=== PATIENT | male | born 1965 | race Native Hawaiian/Other Pacific Islander ===

== ENCOUNTER 2022-09-22 14:37 | Outpatient (REF) | payer MEDICAID, SELFPAY ==
--- NOTE | ~2022-09-22 | CT_ITS ---
EXAMINATION: CT CHEST SCREENING CLINICAL INFORMATION: Current smoker. 90 pack year history. COMPARISON: None available. TECHNIQUE: Multidetector volumetric CT imaging of the chest is performed without contrast using low dose technique. Additional 2D coronal and sagittal reformatted images and axial 3D maximum intensity projection (MIP) images are generated on the CT workstation. This CT examination was performed using dose optimization techniques as appropriate, variously including the following: *Automated exposure control *Adjustment of mA and/or kV according to patient size (this includes techniques or standardized protocols for targeted exams where dose is matched to indication/reason for exam; i.e. extremities or head) *Use of iterative reconstruction technique DLP: 65 mGy-cm FINDINGS: LUNGS: 5 mm left upper peripheral or subpleural lobe nodule axial image 89 series 5. This may represent a subpleural lymph node. A 3 mm right upper lobe nodule axial image 160 series 5. A 3 mm left upper lobe nodule axial image 342 series 5. MEDIASTINUM: The mediastinum is normal. CORONARY ARTERY CALCIFICATION: Mild PLEURA: There is no pleural effusion. No pleural mass or thickening. AXILLA: No lymphadenopathy. UPPER ABDOMEN: Mild fatty infiltration of the liver. Diverticulosis of the colon. OSSEOUS STRUCTURES: Degenerative changes of the spine. CT/CT lung screening IMPRESSION: Small pulmonary nodules ASSESSMENT: Lung-RADS category 2: Benign RECOMMENDATION: Annual low-dose chest CT follow-up recommended
== END 2022-09-22 14:38 | disposition home or self-care (01) ==
LOC: HO.CT 14:37
PROVIDERS: PCP Internal Medicine; Visit Provider Physician Assistant Medical
DX: Z12.2 Encounter for screening for malignant neoplasm of respiratory organs (principal); F17.210 Nicotine dependence, cigarettes, uncomplicated
CPT/HCPCS: 71271; G0296

== ENCOUNTER 2022-11-06 10:00 | Outpatient (REF) | payer MEDICAID, SELFPAY ==
[2022-11-06 14:12] LABS: MANUAL DIFF FLAG NO
[2022-11-06 14:26] LABS: Basophils Percent Auto 0.6 % (0-2); Eosinophils Absolute Auto 0.2 X10*3/uL (0.0-0.4); Eosinophils Percent Auto 2.5 % (0-4); Hematocrit 45.5 % (42.0-52.0); Hemoglobin 14.8 g/dl (14.0-18.0); Imm Gran Abs Auto 0.02 X10*3/uL (0.00-0.03); Imm Gran Pct Auto 0.3 % (0.0-0.4); Lymphocytes Absolute Auto 2.7 X10*3/uL (1.2-4.9); Lymphocytes Percent Auto 38.9 % (20-40); Mean Corpuscular HGB Conc 32.5 g/dl (31.0-36.0); Mean Corpuscular Hemoglobin 31.2 pg (27.0-33.0); Monocytes Absolute Auto 0.6 X10*3/uL (0.1-1.2); Monocytes Percent Auto 8.4 % (2-11); Neutrophils Absolute Auto 3.4 x10*3/uL (2.0-8.3); Neutrophils Percent Auto 49.3 % (45-73); Platelet Count 247 X10*3/uL (160-400); Red Blood Count 4.74 X10*6/uL (4.60-5.80); Red Cell Distribution Width 13.8 % (11.0-16.0); White Blood Count 6.8 X10*3/uL (4.8-10.8)
[2022-11-06 14:54] LABS: Anion Gap 14 (12-20); Blood Urea Nitrogen 15 mg/dL (9-16); Carbon Dioxide 27 mmol/L (22-29); Chloride 105 mmol/L (96-108); Cholesterol 182 mg/dL; Estimated Glomerular Filt Rate > 60; Glucose Fasting 76 mg/dL (60-99); HDL Cholesterol 38 mg/dL; LDL Cholesterol Calculated 96 mg/dl; Potassium 4.9 mmol/L (3.3-5.1); Sodium 141 mmol/L (135-145); Triglycerides 241 mg/dL
== END 2022-11-06 10:01 | disposition home or self-care (01) ==
LOC: HO.CHCLDS 10:00
PROVIDERS: Visit Provider Internal Medicine
DX: I10 Essential (primary) hypertension (principal); E78.00 Pure hypercholesterolemia, unspecified; M1A.00X0 Idiopathic chronic gout, unspecified site, without tophus (tophi)
CPT/HCPCS: 36415; 80048; 80061; 85025

== ENCOUNTER → 2023-08-06 09:30 | Outpatient (BNVA) | payer MEDICAID, SELFPAY | PROVIDERS: PCP Internal Medicine; Visit Provider Internal Medicine ==

== ENCOUNTER 2023-11-28 09:01 | Outpatient (AMB) | payer MEDICAID, SELFPAY ==
--- NOTE | 2023-11-28 09:12 | A.OFFVIS_ITS ---
Vital Signs 11/28/23 09:13 Height 5 ft 4 in Weight 203 lb BMI 34.8 BP 113/60 Blood Pressure Location Lt brachial Position Sitting Pulse 60 Intake Visit Reasons: Hx Tubular Polyps Intake Note: Patient new consult for Hx of Tubular polyps Patient denies any GI issues. Precision Thread Grinder Operator Required: Yes Precision Thread Grinder Operator Name: Marisela [facility] [place] by: Self / Same As Patient Allergies No Known Allergies [No Known Allergies*] Allergy (Verified 11/28/23 09:08) HPI Comments Details: 58 y.o M with PMH of tobacco use, colon polyps, gout, who is here to discuss surveillance colo. Prev colo in 2016 with rectal adenoma. Pt with no acute GI issues to include abd pain, nausea, vomiting blood in stool. No fam hx of colorectal ca in FDRs. PFSH Medical History (Updated 09/22/22 @ 14:34 by Chanda Dawn PA-C) Bilateral renal cysts Nicotine dependence, cigarettes, uncomplicated Tubular adenoma of colon (~2015) Surgical History (Updated 11/28/23 @ 09:13 by Rosalind Gilmore) History of kidney surgery History of esophagogastroduodenoscopy (EGD) History of colonoscopy Social History Patient Tobacco Use Status: Current everyday Tobacco user Tobacco use type: Cigarette Cigarettes Per Day: 3 Years Smoked: (onset 9yo, 1ppd x 48yrs, now 2-3cig/day - 40pyh) Review of Systems Const All systems reviewed & are unremarkable except as noted in HPI and below Physical Exam Vital Signs: Last Vital Signs Pulse 60 11/28/23 09:13 BP 113/60 11/28/23 09:13 BMI result Body Mass Index 34.8 Gen appear: NAD, well nourished HEENT: no icterus, no cervical lymphadenopathy Chest: clear to auscultation CVS: Regular S1/S2 Abd: soft, nontender, nondistended Ext: no peripheral edema Neuro: A/Ox3, noted to move all extremities spontaneously Assessment & Plan Assessment & Plan (1) Tubular adenoma of colon: Onset Date: ~2015 Comment: (TA on 2016 scope) Code(s): D12.6 - Benign neoplasm of colon, unspecified Category: Medical (2) Nicotine dependence, cigarettes, uncomplicated: Comment: (onset 9yo, 1ppd x 48yrs, now 2-3cig/day - 40pyh) Code(s): F17.210 - Nicotine dependence, cigarettes, uncomplicated Category: Medical Plan Patient overdue for surveillance colonoscopy. Prep instructions reviewed and patient aware of the need to a ride back home. He was also counseled on smoking cessation, or at least to not smoke tobacco or marijuana for 7 days prior to the procedure to mitigate demetris-procedure respirato ry complications. CBC and CMP ordered for updated labs Follow-up after colonoscopy Orders: Orders Complete Blood Count no Diff Today F17.210 - Nicotine dependence, cigarettes, uncomplicated Comprehensive Met. Panel Today F17.210 - Nicotine dependence, cigarettes, uncomplicated Medications: New peg 3350-electrolytes [id number] -5.86 gram (Golytely) as per split prep instructions, until fecal effluent is clear 240 mL PO Q10M 4,000 mL 0RF colonoscopy Coding Level of Care Code New Pt Level 3 (38866) Diagnoses Tubular adenoma of colon D12.6 Nicotine dependence, cigarettes, uncomplicated F17.210
[2023-11-28 09:13] VITALS: BP 113/60; PULSE 60; BMI 34.8
== END 2023-11-28 09:37 | disposition home or self-care (01) ==
PROVIDERS: PCP Internal Medicine; Visit Provider Internal Medicine
DX: D12.6 Benign neoplasm of colon, unspecified (principal); F17.210 Nicotine dependence, cigarettes, uncomplicated
CPT/HCPCS: 99203

== ENCOUNTER 2023-11-28 09:01 | Outpatient (REF) | payer MEDICAID, SELFPAY ==
[2023-11-28 10:49] LABS: Hematocrit 44.4 % (42.0-52.0); Hemoglobin 14.6 g/dl (14.0-18.0); Mean Corpuscular HGB Conc 32.9 g/dl (31.0-36.0); Mean Corpuscular Hemoglobin 30.4 pg (27.0-33.0); Mean Corpuscular Volume 92.3 fL (80.0-98.0); Mean Platelet Volume 10.4 fL (9.4-12.4); Platelet Count 264 X10*3/uL (160-400); Red Blood Count 4.81 X10*6/uL (4.60-5.80); Red Cell Distribution Width 13.7 % (11.0-16.0); White Blood Count 7.6 X10*3/uL (4.8-10.8)
[2023-11-28 11:32] LABS: Alanine Aminotransferase 20 U/L (0-40); Albumin Level 4.4 g/dL (3.5-5.0); Alkaline Phosphatase 84 U/L (39-117); Anion Gap 10 (12-20); Aspartate Amino Transferase 18 U/L (5-37); Blood Urea Nitrogen 14 mg/dL (9-16); Carbon Dioxide 27 mmol/L (22-29); Chloride 109 mmol/L (96-108); Estimated Glomerular Filt Rate > 60; Glucose Random 102 mg/dL (60-115); Potassium 4.5 mmol/L (3.3-5.1); Sodium 141 mmol/L (135-145); Total Protein 7.6 g/dL (6.5-8.0)
== END 2023-11-28 09:02 | disposition home or self-care (01) ==
LOC: HO.LAB 09:01
PROVIDERS: PCP Internal Medicine; Visit Provider Internal Medicine
DX: D12.6 Benign neoplasm of colon, unspecified (principal); F17.210 Nicotine dependence, cigarettes, uncomplicated
CPT/HCPCS: 36415; 80053; 85027; 99202

== ENCOUNTER 2023-12-26 10:42 | Outpatient (REF) | payer MEDICAID, SELFPAY ==
[2023-12-26 14:28] LABS: Cholesterol 115 mg/dL (<200); HDL Cholesterol 39 mg/dL (>40); LDL Cholesterol Calculated 45 mg/dL (<100); Triglycerides 156 mg/dL (<150)
[2023-12-26 14:38] LABS: TSH reflex Free T4 1.14 uIU/mL (0.32-4.0)
[2023-12-27 05:10] LABS: ~HepC Num1 0.12 S/CO (0.00-0.79); ~Hepatitis C Antibody Nonreactive (Nonreactive)
== END 2023-12-26 10:43 | disposition home or self-care (01) ==
LOC: HO.CHCLDS 10:42
PROVIDERS: Visit Provider Internal Medicine
DX: E78.00 Pure hypercholesterolemia, unspecified (principal); I10 Essential (primary) hypertension; K21.9 Gastro-esophageal reflux disease without esophagitis
CPT/HCPCS: 36415; 80061; 84443; 86803

== ENCOUNTER 2024-03-04 15:15 | Outpatient (REF) | payer MEDICAID, SELFPAY | END 2024-03-04 15:16 | disposition home or self-care (01) | LOC: HO.CT 15:15 | PROVIDERS: PCP Internal Medicine; Visit Provider Physician Assistant Medical | DX: Z12.2 Encounter for screening for malignant neoplasm of respiratory organs (principal); F17.210 Nicotine dependence, cigarettes, uncomplicated | CPT/HCPCS: 71271 ==

== ENCOUNTER → 2024-03-04 15:17 | Outpatient (BNV) | payer MEDICAID, SELFPAY | PROVIDERS: PCP Internal Medicine; Visit Provider Radiology Diagnostic Radiology | DX: R91.1 Solitary pulmonary nodule (principal) | CPT/HCPCS: 71271 ==

== ENCOUNTER 2024-12-09 10:31 | Outpatient (REF) | payer MEDICAID, SELFPAY ==
--- OUTSIDE RECORDS SUMMARY | 2024-12-09 10:15 | XMS_ITS | Encounter Summary ---
Author Organization [employer] Address [address] [place] [address] Care Team Providers Care Ex Assistant/Program Director Name Role Phone Norman Ordonez MD Primary Care Provider [phone] Reason for Referral * Consultation (Routine) - Pending Review Specialty Diagnoses / Procedures Referred By Yajaira tovar Referred To Contact Gastroenterology Diagnoses Screening for colon cancer Norman Ordonez MD [address] [place] [address] Phone: tel: fax: Referral ID Status Reason Start Date Expiration Date Visits Requested Visits Authorized [id number] Pending Review Specialty Services Required 12/09/2024 12/09/2025 1 1 Encounter Details Date Type Department Care Team ([facility] st Contact Info) Description 12/09/2024 10:15 AM EDT Office Visit [facility] [address] [place] [address] Norman Ordonez MD [address] [place] [address] Primary hypertension (Primary Dx); Steatosis of liver; Cobalamin deficiency; Screening for colon cancer; Dietary counseling; Exercise counseling; Class 2 severe obesity due to excess calories with serious comorbidity and body mass index (BMI) of 36.0 to 36.9 in adult (CMS/HCC); Encounter for immunization Social History Tobacco Use Types Packs/Day Years Used Date Smoking Tobacco: Some Days Cigarettes 0.2 25 Passive Smoke Exposure: Current Smokeless Tobacco: Never Comments:Has not smoke in a week. Alcohol Use Standard Drinks/Week Comments Yes 6 (1 standard drink = 0.6 oz pur e alcohol) Alcohol Answer Date Recorded How often do you have a drink containing alcohol ? 1 12/09/2024 How many drinks containing a lcohol do you have on a typical day when you are drinking? 0 12/09/2024 How often do you have six or more drinks on one occasion? 0 12/09/2024 Depression Answer Date Recorded Patient Health Questionnaire-9 Score 8 12/09/2024 Patient Health Questionnaire-9 Score 8 12/09/2024 Last PHQ-9: Questionnaire Data Not on file 0 12/09/2024 Housing Stability Answer Date Recorded What is your housing situation today? I have jacqueline boss 12/09/[address] you li ve. Do you have problems with any of the following? None of the above 12/09/2024 Food Insecurity Answer Date Recorded Within the past 12 months, y ou worried that your food would run out before you got money to buy more: Never True 12/09/2024 Within the past 12 months,th e food you bought just didn't last and you didn't have enough money to get more: Never True Transportation Answer Date Recorded In the past 12 months, has l ack of transportation kept you from medical appts, meetings, work or from getting things needed for daily living? No 12/09/2024 Utilities Answer Date Recorded In the past 12 months, has t he electric, gas, oil or water company threatened to shut off services in your home? No 12/09/2024 Depression Answer Date Recorded Patient Health Questionnaire-2 Score 4 12/09/2024 Internet Access Answer Date Recorded Internet Access Q1 Yes 12/09/2024 Internet Access Q2 Not on file 12/09/2024 Sex and Gender Information Value Date Recorded Sex Assigned at Male 02/13/2022 10:28 AM EDT Legal Sex Male 10:28 AM EDT Gender Identity Male 02/13/2022 10:28 AM EDT Sexual Orientation Straight 02/13/2022 10 :28 AM EDT documented as of this encounter Last Filed Vital Signs Vital Sign Reading Time Taken Comments Blood Pressure 143/81 12/09/2024 9:51 AM EDT Pulse 50 12/09/2024 9:51 AM EDT Temperature 36.5 C (97.7 F) 12/09/2024 9:51 AM EDT Respiratory Rate 20 12/09/2024 9:51 AM EDT Oxygen Saturation 97% 12/09/2024 9:51 AM EDT Inhaled Oxygen Concentration - - Weight 95.3 kg (210 lb) 12/09/2024 9:51 AM EDT Height 162.6 cm (5' 4 ) 12/09/2024 9:51 AM EDT Body Mass Index 36.05 12/09/2024 9:51 AM EDT documented in this encounter Functional Status * Over the past 2 weeks, how often have you been bothered by any of the following problems? Question Answer Date of Assessment Author Patient Health Questionnaire-2 Score 4 11/15 10:14 AM DALILAT Evelyn Garibay MA * Little interest or pleasure in doing things Answer Date of Assessment Author Nearly every day 12/09/2024 10:14 AM DALILAT Evelyn Garibay MA * Feeling down, depressed, or hopeless Answer Date of Assessment Author Several days 12/09/2024 10:14 AM EDT Eleni Garibay MA * Trouble falling or staying asleep, or sleeping too much Answer Date of Assessment Author Several days 12/09/2024 10:14 AM Eleni Doshi MA * Feeling tired or having little energy Answer Date of Assessment Author Several days 12/09/2024 10:14 AM Eleni Doshi MA * Poor appetite or overeating Answer Date of Assessment Author More than half the days 12/09/2024 10:14 AM DALILAT Evelyn Garibay MA * Feeling bad about yourself - or that you are a failure or have let yourself or your family down Answer Date of Assessment Author Not at all 12/09/2024 10:14 AM Eleni Doshi MA * Trouble concentrating on things, such as reading the newspaper or watching television Answer Date of Assessment Author Not at all 12/09/2024 10:14 AM Eleni Doshi MA * Moving or speaking so slowly that other people could have noticed? Or the opposite - being so fidgety or restless that you have been moving around a lot more than usual. Answer Date of Assessment Author Not at all 12/09/2024 10:14 AM EDT Eleni Garibay MA * Thoughts that you would be better off or hurting yourself in some way Answer Date of Assessment Author Not at all 12/09/2024 10:14 AM DALILAT Eleni Garibay MA * Patient Health Questionnaire-9 Score Answer Date of Assessment Author 8 12/09/2024 10:14 AM EDT Eleni Garibay MA * How difficult have these problems made it for you to do your work, take care of things at home, or get along with other people? Answer Date of Assessment Author Not difficult at all 12/09/2024 10:14 AM EDT Evelyn Oleary MA documented as of this encounter Progress Notes * Norman Ordonez MD - 12/09/2024 10:15 AM EDT SUBJECTIVE Efe Garcia is a 59 y.o. male who presents for No chief complaint on file.. HPI MR Efe Garcia is here for his extended office visit. 1) h/o HTN. Compliant to his medication that he takes in the evening. Denies Headache/blurry vision. 2)h/o liver steatosis. Pt is asymptomatic. He needs a repeat Liver panel 3) Missed his last appointment for his colonoscopy. He needs to be rescheduled. Denies any acute interval event since his last visit. Problem List[1] Allergies[2] Medications Ordered Prior to Encounter[3] Review of Systems Constitutional: Negative for activity change, appetite change, chills and diaphoresis. HENT: Negative for dental problem, drooling and ear discharge. Eyes: Negative for pain and itching. Respiratory: Negative for cough, choking and chest tightness. Cardiovascular: Negative for palpitations and leg swelling. Gastrointestinal: Negative for abdominal pain, anal bleeding and blood in stool. Endocrine: Negative for cold intolerance and heat intolerance. Genitourinary: Negative for flank pain, frequency and genital sores. Musculoskeletal: Negative for back pain. Neurological: Negative for light-headedness, numbness and headaches. Psychiatric/Behavioral: Negative for agitation, confusion and decreased concentration. OBJECTIVE Vitals: 12/09/24 0951 BP: (!) 143/81 Pulse: 50 Resp: 20 Temp: 97.7 ??F (36.5 ??C) TempSrc: Oral SpO2: 97% Weight: 210 lb (95.3 kg) Height: 5' 4 (1.626 m) Physical Exam Constitutional: General: He is not in acute distress. Appearance: Normal appearance. He is obese. He is not ill-appearing, toxic- appearing or diaphoretic. Cardiovascular: Rate and Rhythm: Normal rate. Pulmonary: Effort: Pulmonary effort is normal. Abdominal: Palpations: Abdomen is soft. Musculoskeletal: General: Normal range of motion. Skin: General: Skin is warm. Neurological: General: No focal deficit present. Mental Status: He is alert. Psychiatric: Mood and Affect: Mood normal. Assessment/Plan Assessment/Plan Diagnoses and all orders for this visit: Primary hypertension Comments: Pt claims compliance to his medication BP is at goal at home DASH diet. Advised to bring his records from home Orders: - CBC auto differential; Future - Comprehensive Metabolic Panel; Future - Lipid Panel, Standard; Future - TSH with Reflex to Free T4; Future Steatosis of liver Comments: Pt is avoid hepatotoxic medication. Needs to start loosing weight Cobalamin deficiency Comments: continue w/ vit B12 supplementation. Orders: - Vitamin B12/Folate, Serum Panel; Future Screening for colon cancer - Referral to Gastroenterology; Future Dietary counseling Exercise counseling Class 2 severe obesity due to excess calories with serious comorbidity and body mass index (BMI) of36.0 to 36.9 in adult (CMS/HCC) Dietary Recommendations: Fruits, vegetables, whole grains, protein foods, and fat-free or low-fat dairy products are healthychoices. Eat different types of protein foods in your diet. This can include seafood, lean meats, poultry, beans, peas, lentils, nuts, seeds, soy products, and eggs. Limit foods and beverages higher in added sugars, saturated fat, and sodium. Exercise Recommendations: At least 150 minutes of moderate-intensity physical activity per week, or an equivalent combinationof moderate- and vigorous-intensity activity Encounter for immunization - HEPATITIS B VACCINE ADULT 20 yrs + [1] Patient Active Problem List Diagnosis Chronic gouty arthritis Cobalamin deficiency H/O partial adrenalectomy (CMS/HCC) Hypertensive disorder Light cigarette smoker (1-9 cigs/day) Obesity with body mass index 30 or greater Steatosis of liver Dental calculus Periodontal disease [2] Allergies Allergen Reactions Lisinopril [3] Current Outpatient Medications on File Prior to Visit Medication Sig Dispense Refill Acetaminophen Extra Strength 500 MG tablet TAKE ONE TABLET EVERY 6 HOURS NEEDED FOR PAIN 20 tablet 0 allopurinol (Zyloprim) 300 MG tablet TAKE ONE TABLET DAILY 90 tablet 3 aspirin 81 MG EC tablet Take 1 tablet (81 mg) by mouth Once per day. daily 30 tablet 11 atenolol (Tenormin) 50 MG tablet TAKE ONE TABLET ONCE DAILY 90 tablet 1 atorvastatin (Lipitor) 40 MG tablet Take 1 tablet (40 mg) by mouth in the morning. 30 tablet 11 cyanocobalamin (Vitamin B-12) 1000 MCG/ML injection INJECT ONE ML INTRAMUSCULARLY EVERY MONTH 1 mL 11 cyanocobalamin (Vitamin B-12) 1000 MCG/ML injection INJECT ONE ML INTRAMUSCULARLY EVERY MONTH 1 mL 11 fenofibrate micronized (Lofibra) 134 MG capsule Take 1 capsule (134 mg) by mouth with breakfast. Daily with food 30 capsule 11 hydroCHLOROthiazide (Microzide) 12.5 MG capsule TAKE ONE CAPSULE BY MOUTH EVERY DAY 90 capsule 1 hydrocortisone 2.5 % cream apply by topical route every day to the affected area(s) (Patient not taking: Reported on 06/12/2024) ibuprofen 600 MG tablet Take 1 tablet (600 mg) by mouth every 6 (six) hours if needed for mild painfor up to 20 doses. 20 tablet 0 indomethacin (Indocin) 50 MG capsule TAKE ONE CAPSULE THREE TIMES DAILY WITH FOOD 15 capsule 2 nicotine (Nicoderm, Step 3) 7 MG/24HR patch Place 1 patch on the skin. (Patient not taking: Reported on 06/12/2024) omeprazole (PriLOSEC) [address] capsule TAKE ONE CAPSULE BY MOUTH EVERY DAY BEFORE A MEAL 90 capsule1 Omeprazole 20 MG tablet delayed-release Take 20 mg by mouth Once per day. 30 tablet 11 No current facility-administered medications on file prior to visit. documented in this encounter Miscellaneous Notes * Patient Education Note - Norman Ordonez MD - 12/09/2024 2:04 PM EDT Images from the original note were not included. Educaci?n del paciente Tabla de contenidos C?mo tomarse la presi?n arterial (How to Take Your Blood Pressure) Obesidad en los adultos (Obesity, Adult) Para sandrita videos y toda bennett educaci?n en l?michael, visite [email or web address] o escanee keegan c?digo QR con bennett tel?fono inteligente. El acceso a keegan contenido expirar?? en un a?o. C?mo tomarse la presi?n arterial How to Take Your Blood Pressure La presi?n arterial es la medida de la fuerza de la ankita al presionar contra las gonsalez de las arterias. Las arterias son los vasos sangu?neos que transportan la ankita desde el coraz?n hacia todas las partes del cuerpo. Usted puede terry bennett presi?n arterial en casa con un aparato. Es posible que tenga que terry bennett presi?n arterial en casa: Para sandrita si tiene presi?n arterial elevada (hipertensi?n). Para controlar bennett presi?n arterial a lo ritesh del tiempo. Para asegurarse de que el medicamento para la presi?n arterial est?? surtiendo efecto. Materiales necesarios: Aparato de medici?n de la presi?n arterial o tensi?metro. Cinthya silla para sentarse. Debe ser cinthya silla en la que pueda sentarse erguido con la espalda apoyada. No se siente en un sill?n blando o sof?. Walker o escritorio. Cuaderno jody?o. L?piz o sami?grafo. C?mo prepararse Evite realizar lo siguiente darío los 30 minutos anteriores a controlar bennett presi?n arterial: Consumir bebidas con cafe?na, kirti caf?? o t?. Consumir alcohol. [place]. Fumar. Realizar actividad f?asuncion. Pérez lo siguiente ez minutos antes de controlarse la presi?n arterial: Vaya al ba?o y pérez pis (orine). Si?ntese en cinthya silla. Est?? tranquilo. No hable. C?mo tomarse la presi?n arterial Siga las instrucciones que vienen con el aparato. Si tiene un tensi?metro digital, las instrucciones podr?an ser las siguientes: 1. Si?ntese con la espalda recta. Coloque los pies en el piso. No cruce los tobillos ni las piernas. Apoye el brazo thea al nivel del coraz?n. Puede apoyarlo en cinthya walker, escritorio o silla. Arrem?nguese. Envuelva la parte superior de bennett brazo thea con el brazalete para la presi?n arterial. El brazalete debe estar a 1 pulgada (2.5?cm) sobre bennett codo. Es mejor envolver el brazalete alrededor de la piel desnuda. Ajuste el brazalete ce?idamente alrededor del brazo, eloisa no demasiado apretado. Debe poder meter ?nicamente un dedo entre el brazalete y el brazo. Coloque el cord?n de modo que quede apoyado en el pliegue del codo. Presione el bot?n de encendido. Qu?dese sentado tranquilamente mientras el brazalete se infla y se desinfla. Escriba los n?meros que se muestran en la pantalla. Espere 2?o 3 minutos y repita los pasos 1?al?10. ?Qu?? significan los n?meros? Dos n?meros conforman la presi?n arterial. El primer n?aashish es la presi?n sist?lica. El olivia n?aashish es la presi?n diast?lica. Un ejemplo de lectura de presi?n arterial ser?a 120 sobre 80 (o 120/80). Si es adulto y no tiene ninguna afecci?n, use esta gu?a para saber si bennett presi?n arterial es normal: Normal Primer n?aashish: debajo de 120. Olivia n?aashish: debajo de 80. [place] Primer n?aashish: 120?129. [place] n?aashish: debajo de 80. [place] 1 de hipertensi?n Primer n?aashish: 130?139. [place] n?aashish: 80?89. [place] 2 de hipertensi?n Primer n?aashish: 140 o m?s. [place] n?aashish: 90 o m?s. Bennett presi?n arterial se encuentra por encima del nivel normal incluso si solo el truong o solo el olivia n?aashish est?? por encima de lo normal. Siga estas indicaciones en bennett casa: Medicamentos Use los medicamentos de venta savanna y los recetados solamente kirti se lo haya indicado el m?dico. D?gale al m?dico si los medicamentos que fermin le causan efectos secundarios. Indicaciones generales Controle bennett presi?n arterial con la frecuencia que le indique bennett m?dico. Contr?lese la presi?n arterial a la misma hora todos los d?as. Lleve el tensi?metro a bennett pr?xima froy con el m?dico. Bennett m?dico: ? Se asegurar?? de que lo est?? usando correctamente. ? Se asegurar?? de que funcione mansoor. Entienda cu?les deben ser darrell n?meros de presi?n arterial. Concurra a todas las visitas de seguimiento. Consejos generales Necesitar?? un aparato de medici?n de la presi?n arterial o tensi?metro. Bennett m?dico puede sugerirle un tensi?metro. Puede comprar jarrett en cinthya farmacia o en l?michael. Al escoger jarrett: Escoja jarrett que tenga un brazalete. Escoja jarrett que se envuelva en la parte superior de bennett brazo. Debe poder meter ?nicamente un dedo entre el brazalete y el brazo. No escoja jarrett que mida bennett presi?n arterial en la mu?eca o el dedo. D?nde obtener m?s informaci?n [place] [employer] (Asociaci?n [place] del [place]?n): www.heart.org Comun?quese con un m?dico si: Bennett presi?n arterial sigue everette. Bennett presi?n arterial disminuye repentinamente. Solicite ayuda de inmediato si: Bennett primer n?aashish de presi?n arterial es m?s alto que 180. Bennett olivia n?aashish de presi?n arterial es m?s alto que 120. Estos s?ntomas pueden indicar cinthya emergencia. No espere a sandrita si los s?ntomas desaparecen. Soliciteayuda de inmediato. Llame al 911. Resumen Contr?lese la presi?n arterial a la misma hora todos los d?as. Evite la cafe?na, el alcohol, fumar y hacer actividad f?asuncion darío los 30 minutos anteriores a controlarse la presi?n arterial. Se asegurar?? de que entienda cu?les deben ser darrell n?meros de presi?n arterial. Esta informaci?n no tiene kirti fin reemplazar el consejo del m?dico. Aseg?rese de hacerle al m?dicocualquier pregunta que tenga. Document Released: 2011-07-18 Document Updated: 2022-01-09 Document Reviewed: 2022-01-09 Elsevier Patient Education ? 2024 [employer] Obesidad en los adultos Obesity, Adult La obesidad es un exceso de grasa corporal. Ser ericka significa que bennett peso es m?s alto de lo que es saludable para usted. El IMC (?ndice de masa muscular) es un n?aashish que indica la cantidad de grasa corporal que tiene cinthya persona. Si usted tiene un ?ndice de masa corporal (IMC) de 30?o m?s, esto significa que es ericka. La obesidad puede causar problemas de kings graves, kirti los siguientes: Accidente cerebrovascular. Arteriopat?a coronaria (EAC). Diabetes tipo 2. Algunos tipos de c?ncer. Presi?n arterial everette (hipertensi?n arterial). Colesterol alto. C?lculos en la ves?cula biliar. La obesidad tambi?n puede contribuir a lo siguiente: Artrosis. Apnea del sade?o. Problemas de esterilidad. ?Cu?les son las causas? Consumir todos los d?as alimentos con altos niveles de calor?as, az?car y grasa. Beber gran cantidad de bebidas con az?car. Nacer con genes que pueden hacerlo m?s propenso a ser ericka. Tener cinthya afecci?n m?dica que causa obesidad. Terry ciertos medicamentos. Permanecer mucho tiempo sentado (tener un estilo de hanna sedentario). No dormir lo suficiente. ?Qu?? incrementa el riesgo? Tener antecedentes familiares de obesidad. Vivir en un ?chanda con acceso limitado a las siguientes posibilidades: ? Parques, centros recreativos o veredas. ? Alimentos saludables, kirti se venden en tiendas de comestibles y mercados de agricultores. ?Cu?les son los signos o s?ntomas? El principal signo es tener demasiada grasa corporal. ?C?mo se trata? El tratamiento de esta afecci?n frecuentemente incluye cambiar el estilo de hanna. El tratamiento puede incluir: Cambios en la dieta. [place] puede incluir crear un plan de alimentaci?n saludable. Realizar actividad f?asuncion. Puede incluir cinthya actividad que hace que el coraz?n sylvia m?s r?pido (ejercicio aer?bico) y entrenamiento de fuerza. Trabaje con bennett m?dico para dise?ar un programa que funcione para usted. Medicamentos para ayudarlo a perder peso. Pueden utilizarse si no puede perder cinthya chelsy por semanadespu?s de 6 semanas de alimentaci?n saludable y m?s ejercicio. Tratar las afecciones que causan la obesidad. Cirug?a. Las opciones pueden incluir bandas g?stricas y bypass g?strico. [place] puede realizarse en las siguientes situaciones: ? Otros tratamientos no mejoraron bennett afecci?n. ? Tiene un IMC de 40 o superior. ? Tiene problemas de kings potencialmente mortales relacionados con la obesidad. Siga estas indicaciones en bennett casa: Comida y bebida Siga las instrucciones del m?dico respecto de las comidas y las bebidas. Bennett m?dico puede recomendarle lo siguiente: ? Limitar las comidas r?pidas, los dulces y las colaciones procesadas. ? Elegir opciones con bajo contenido de grasas. Por ejemplo, leche descremada en lugar de leche entera. ? Consumir ez o m?s porciones de frutas o verduras por d?a. ? [place] en casa con m?s frecuencia. [place] le da m?s control sobre lo que come. ? Elegir alimentos saludables cuando coma afuera. ? Aprender a leer las etiquetas de los alimentos. [place] le ayudar?? a aprender qu?? cantidad de alimento hay en cinthya porci?n. ? Tener a mano colaciones con bajo contenido de grasas. ? Evitar las bebidas que contengan hernandez az?car. Estas incluyen refrescos, jugo de frutas, t?? helado con az?car y leche saborizada. [place] suficiente agua para mantener el pis (la orina) de color amarillo p?lido. No siga las dietas de moda. Actividad f?asuncion Pérez ejercicios con frecuencia, kirti se lo haya indicado el m?dico. La mayor?a de los adultos debenhacer hasta 150?minutos de ejercicio de intensidad moderada cada semana.Preg?ntele al m?dico lo siguiente: ? Los tipos de ejercicios que son seguros para usted. ? La frecuencia con la que debe hacer los ejercicios. Precaliente y elongue adecuadamente antes de hacer actividad f?asuncion. Pérez un estiramiento lento despu?s de la actividad (relajaci?n). Descanse entre los per?odos de actividad. Estilo de hanna Trabaje con bennett m?dico y con un experto en alimentaci?n (nutricionista) para establecer un objetivo de p?rdida de peso que sea adecuado para usted. Limite el tiempo que pasa frente a cinthya pantalla. Busque formas de recompensarse que no incluyan alimentos. No dayami alcohol si: ? El m?dico le indica que no lo pérez. ? Est?? embarazada, puede estar embarazada o est?? tratando de quedar embarazada. Si chase alcohol: ? Limite la cantidad que chase a lo siguiente: ? De 0 a 1 medida por d?a para las mujeres. ? De 0 a 2 medidas por d?a para los hombres. ? Sepa cu?nta cantidad de alcohol hay en las bebidas que fermin. En los [place], cinthya medida equivale a cinthya botella de cerveza de 12?oz (355?ml), un vaso de vino de 5?oz (148?ml) o un vaso de unabebida alcoh?lica de everette graduaci?n de 1??oz (44?ml). Indicaciones generales Lleve un diario de bennett p?rdida de peso. [place] puede ayudarlo a mantener un registro de lo siguiente: ? Los alimentos que come. ? Cu?nto ejercicio realiza. Use los medicamentos de venta savanna y los recetados solamente kirti se lo haya indicado el m?dico. [place] vitaminas y suplementos solamente kirti se lo haya indicado el m?dico. Considere participar en un denise de apoyo. Preste atenci?n a la kings mental, ya que la obesidad puede provocar depresi?n o problemas de autoestima. Concurra a todas las visitas de seguimiento. Comun?quese con un m?dico si: No puede alcanzar bennett objetivo de p?rdida de peso despu?s de joe modificado bennett dieta y bennett estilo de hanna darío 6 semanas. Presenta dificultades respiratorias s?bitas. Resumen La obesidad es un exceso de grasa corporal. Ser ericka significa que bennett peso es m?s alto de lo que es saludable para usted. Trabaje con bennett m?dico para establecer un objetivo de p?rdida de peso. Pérez actividad f?asuncion con regularidad giancarlo kirti le indic?? el m?dico. Esta informaci?n no tiene kirti fin reemplazar el consejo del m?dico. Aseg?rese de hacerle al m?dicocualquier pregunta que tenga. Document Released: 2012-10-01 Document Updated: 2021-12-01 Document Reviewed: 2021-12-01 Elsevier Patient Education ? 2024 [employer] documented in this encounter Plan of Treatment Upcoming Encounters Date Type Department Care Team (Late st Contact Info) Description 12/12/2024 10:00 AM EDT Clinical Support [facility] [address] [place] [address] 12/31/2024 10:30 AM EDT Office Visit [facility] [address] [place] [address] Sp, Shante, OD [address] [place] [address] 01/27/2025 11:30 AM EDT Office Visit [facility] [address] [place] [address] Norman Ordonez MD [address] [place] [address] Scheduled Orders Name Type Priority Associated Diagnoses Orde r Schedule CBC auto differential Lab Routine Primary hypertension Expected: 12/09/2024 (Approximate), Expires: 12/09/2025 Comprehensive Metabolic Panel Lab Routine Primary hypertension Expected: 12/09/2024 (Approximate), Expires: 12/09/2025 Lipid Panel, Standard Lab Routine Primary hypertension Expected: 12/09/2024 (Approximate), Expires: 12/09/2025 TSH with Reflex to Free T4 Lab Routine Primary hypertension Expected: 12/09/2024 (Approximate), Expires: 12/09/2025 Vitamin B12/Folate, Serum Panel Lab Routine Cobalamin deficiency Expected: 12/09/2024, Expires: 12/09/2025 Scheduled Referrals Name Type Priority Associated Diagnoses Order Schedule Referral to Gastroenterology Outpatient Referral Routine Screening for colon cancer Expected: 12/09/2024 (Approximate), Expires: 12/09/2025 documented as of this encounter Visit Diagnoses Diagnosis Primary hypertension- Primary Unspecified essential hypertension Steatosis of liver Other chronic nonalcoholic liver disease Cobalamin deficiency Other B-complex deficiencies Screening for colon cancer Special screening for malignant neoplasms, colon Dietary counseling Dietary surveillance and counseling Exercise counseling Class 2 severe obesity due to excess calories with serious comorbidity and body mass index (BMI) of 36.0 to 36.9 in adult ([facility]) Encounter for immunization documented in this encounter Additional Health Concerns Assessment Noted Time PHQ-9 Depression Total Score: 8 12/10/19 25 10:14 AM EDT documented as of this encounter Care Teams Ex Assistant/Program Director Relationship Specialty Start Date End Date Norman Ordonez MD [address] [place] [address] PCP - General Internal Medicine 03/05/15 documented as of this encounter
--- OUTSIDE RECORDS SUMMARY | 2024-12-09 11:17 | XMS_ITS | Encounter Summary ---
Author Organization [employer] Address [address] [facility] 7 [place] [address] Care Team Providers Care Medical Billing Coordinator Name Role Phone Norman Ordonez MD Primary Care Provider +[phone] Reason for Visit * Reason Onset Date Comments Medication Question 03/28/2023 Encounter Details Date Type Department Care Team ([facility] Contact Info) Description 03/28/2023 Telephone [facility] CHC MED & PEDS [address] [place] [address] Norman Ordonez MD [address] [place] [address] Medication Question Social History Tobacco Use Types Packs/Day Years Used Date Smoking Tobacco: Some Days Cigarettes 0.2 25 Passive Smoke Exposure: Current Smokeless Tobacco: Never Comments:Has not smoke in a week. Alcohol Use Standard Drinks/Week Comments Yes 42 (1 standard drink = 0.6 oz pu re alcohol) Depression Answer Date Recorded Patient Health Questionnaire-9 Score 12 03/21/2023 Patient Health Questionnaire-9 Score 12 03/21/2023 Last PHQ-9: Questionnaire Data Not on file 1 05/22/2022 Housing Stability Answer Date Recorded What is your housing situation today? Not on usman e 02/01/[address] you li ve. Do you have problems with any of the following? None of the above 02/01/2023 Food Insecurity Answer Date Recorded Within the past 12 months, y ou worried that your food would run out before you got money to buy more: Never True 02/01/2023 Within the past 12 months,th e food you bought just didn't last and you didn't have enough money to get more: Never True Transportation Answer Date Recorded In the past 12 months, has l ack of transportation kept you from medical appts, meetings, work or from getting things needed for daily living? No 02/01/2023 Utilities Answer Date Recorded In the past 12 months, has t he electric, gas, oil or water company threatened to shut off services in your home? No 02/01/2023 Depression Answer Date Recorded Patient Health Questionnaire-2 Score 3 03/21/2023 Sex and Gender Information Value Date Recorded Sex Assigned at Male 02/13/2022 10:28 AM EDT Legal Sex Male 10:28 AM EDT Gender Identity Male 02/13/2022 10:28 AM EDT Sexual Orientation Straight 02/13/2022 10 :28 AM EDT documented as of this encounter Miscellaneous Notes * Telephone Encounter - Radha Reddy RN - 03/29/2023 12:04 PM EST Updated med list sent to [facility] as requested. * Telephone Encounter - Dulce Maria Earl - 03/28/2023 1:16 PM EST Tc from Terry with [facility] requesting a call from a nurse in regards to pt medication list not adding up or matching and requesting a new updated copy of pt med list. Please fax over to [phone] Please contact Terry @ [phone] documented in this encounter Plan of Treatment Upcoming Encounters Date Type Department Care Team (Late st Contact Info) Description 12/12/2024 10:00 AM EDT Clinical Support [facility] CHC MED & PEDS [address] [place] [address] 12/31/2024 10:30 AM EDT Office Visit [facility] OPTOMETRY [address] [place] [address] Shante Snowden, OD [address] [place] [address] 01/27/2025 11:30 AM EDT Office Visit [facility] MED & PEDS [address] [place] [address] Norman Odronez MD [address] [place] [address] documented as of this encounter Visit Diagnoses Not on filedocumented in this encounter Additional Health Concerns Assessment Noted Time PHQ-9 Depression Total Score: 12 023 10:38 AM EST documented as of this encounter Care Teams Medical Billing Coordinator Relationship Specialty Start Date End Date Norman Ordonez MD [address] [place] [address] PCP - General Internal Medicine 03/05/15 documented as of this encounter
--- OUTSIDE RECORDS SUMMARY | 2024-12-09 11:17 | XMS_ITS | Encounter Summary ---
Author Organization [employer] Address [address] [facility] 7t [place] [address] Care Team Providers Care Dining Room Manager Name Role Phone Norman Ordonez MD Primary Care Provider [phone] Encounter Details Date Type Department Care Team (Latest Contact Info) Description 11/06/2022 Orders Only [facility] CHC MED & PEDS 505 [place] [address] Norman Ordonez MD [address] [place] [address] Hypercholesterolemia (Primary Dx) Social History Tobacco Use Types Packs/Day Years Used Date Smoking Tobacco: Some Days Cigarettes 0.2 25 Passive Smoke Exposure: Current Smokeless Tobacco: Never Alcohol Use Standard Drinks/Week Comments Yes 42 (1 standard drink = 0.6 oz pu re alcohol) Depression Answer Date Recorded Patient Health Questionnaire-9 Score 4 05/08/2022 Depression Answer Date Recorded Patient Health Questionnaire-2 Score 2 05/08/2022 Sex and Gender Information Value Date Recorded Sex Assigned at Male 02/13/2022 10:28 AM EDT Legal Sex Male 10:28 AM EDT Gender Identity Male 02/13/2022 10:28 AM EDT Sexual Orientation Straight 02/13/2022 10 :28 AM EDT COVID-19 Exposure Response Date Recorded In the last 10 days, have yo u been in contact with someone who was confirmed or suspected to have Coronavirus/COVID-19? No / Unsure 10/23/2022 1:15 PM EDT documented as of this encounter Plan of Treatment Upcoming Encounters Date Type Department Care Team ( Contact Info) Description 12/12/2024 10:00 AM EDT Clinical Support [facility] CHC MED & PEDS [address] [place] [address] 12/31/2024 10:30 AM EDT Office Visit [facility] OPTOMETRY [address] [place] [address] Shante Snowden, OD [address] [place] [address] 01/27/2025 11:30 AM EDT Office Visit [facility] CHC MED & PEDS [address] [place] [address] Norman Ordonez MD [address] [place] [address] documented as of this encounter Visit Diagnoses Diagnosis Hypercholesterolemia- Primary Pure hypercholesterolemia documented in this encounter Additional Health Concerns Assessment Noted Time PHQ-9 Depression Total Score: 4 05/08/19 23 9:57 AM EST documented as of this encounter Care Teams Dining Room Manager Relationship Specialty Start Date End Date Norman Ordonez MD [address] [place] [address] PCP - General Internal Medicine 03/05/15 documented as of this encounter
--- OUTSIDE RECORDS SUMMARY | 2024-12-09 11:17 | XMS_ITS | Encounter Summary ---
Author Organization [employer] Address [address] [place] [address] Care Team Providers Care Box Printer Name Role Phone Norman Ordonez MD Primary Care Provider [phone] Encounter Details Date Type Department Care Team (Late st Contact Info) Description 03/13/2022 Abstract [facility] MEDICINE [address] [place] [address] Provider, MD Bryce Social History Tobacco Use Types Packs/Day Years Used Date Smoking Tobacco: Never Assessed Sex and Gender Information Value Date Recorded Sex Assigned at Male 02/13/2022 10:28 AM EDT Legal Sex Male 10:28 AM EDT Gender Identity Male 02/13/2022 10:28 AM EDT Sexual Orientation Straight 02/13/2022 10 :28 AM EDT documented as of this encounter Plan of Treatment Upcoming Encounters Date Type Department Care Team (Late st Contact Info) Description 12/12/2024 10:00 AM EDT Clinical Support [facility] MED & PEDS [address] [place] [address] 12/31/2024 10:30 AM EDT Office Visit [facility] OPTOMETRY [address] [place] [address] SpShante juarez, OD [address] [place] [address] 01/27/2025 11:30 AM EDT Office Visit [facility] CHC MED & PEDS [address] [place] [address] Norman Ordonez MD 505 [place] [address] documented as of this encounter Visit Diagnoses Not on filedocumented in this encounter Care Teams Box Printer Relationship Specialty Start Date End Date Norman Ordonez MD [address] [place] [address] PCP - General Internal Medicine 03/05/15 documented as of this encounter
--- OUTSIDE RECORDS SUMMARY | 2024-12-09 11:17 | XMS_ITS | Encounter Summary ---
Author Organization [employer] Address [address] [place] [address] 7t [place] [address] Care Team Providers Care Certified Medical Records Coder Name Role Phone Norman Ordonez MD Primary Care Provider [phone] Reason for Visit * Reason Comments Med Refill Encounter Details Date Type Department Care Team ([facility] Contact Info) Description 02/01/2024 Refill [facility] CHC ADULT DENTAL [address] [place] [address] Sterling Kelsey, DMD 505 [place] [address] History of tooth extraction, unspecified edentulism class Social History Tobacco Use Types Packs/Day Years Used Date Smoking Tobacco: Some Days Cigarettes 0.2 25 Passive Smoke Exposure: Current Smokeless Tobacco: Never Comments:Has not smoke in a week. Alcohol Use Standard Drinks/Week Comments Yes 6 (1 standard drink = 0.6 oz pur e alcohol) Depression Answer Date Recorded Patient Health [...] encounter Miscellaneous Notes * Telephone Encounter - Sterling Kelsey DMD - 02/01/2024 1:05 PM EDT Approving, but needs appt for additional refills. documented in this encounter Plan of Treatment Upcoming Encounters Date Type Department Care Team (Late st Contact Info) Description 12/12/2024 10:00 AM EDT Clinical Support [facility] MED & PEDS [address] [place] [address] 12/31/2024 10:30 AM EDT Office Visit [facility] OPTOMETRY [address] [place] [address] Shante Snowden, OD [address] [place] [address] 01/27/2025 11:30 AM EDT Office Visit [facility] MED & PEDS [address] [place] [address] Norman Ordonez MD [address] [place] [address] documented as of this encounter Visit Diagnoses Diagnosis History of tooth extraction, unspecified edentulism class documented in this encounter Additional Health Concerns Assessment Noted Time PHQ-9 Depression Total Score: 12 023 10:38 AM EST documented as of this encounter Care Teams Certified Medical Records Coder Relationship Specialty Start Date End Date Norman Ordonez MD [address] [place] [address] PCP - General Internal Medicine 03/05/15 documented as of this encounter
--- OUTSIDE RECORDS SUMMARY | 2024-12-09 11:17 | XMS_ITS | Encounter Summary ---
Author Organization [employer] Address [address] [place] [address] [place] [address] Care Team Providers Care Record Press Operator Name Role Phone Norman Ordonez MD Primary Care Provider [phone] Encounter Details Date Type Department Care Team (Latest Contact Info) Description 11/28/2018 Abstract [facility] CONVERSIONS Dental, Provider, DDS Social History Tobacco Use Types Packs/Day Years [...] Description 12/12/2024 10:00 AM EDT Clinical Support [facility] MED & PEDS [address] [place] [address] 12/31/2024 10:30 AM EDT Office Visit [facility] OPTOMETRY [address] [place] [address] Sp, Shante, OD [address] [place] [address] 01/27/2025 11:30 AM EDT Office Visit [facility] MED & PEDS [address] [place] [address] Norman Ordonez MD 505 [place] [address] documented as of this encounter Visit Diagnoses Not on filedocumented in this encounter Care Teams Record Press Operator Relationship Specialty Start Date End Date Norman Ordonez MD [address] [place] [address] PCP - General Internal Medicine 03/05/15 documented as of this encounter
--- OUTSIDE RECORDS SUMMARY | 2024-12-09 11:17 | XMS_ITS | Encounter Summary ---
Author Organization [employer] Address [address] [facility] [address] 7t [place] [address] Care Team Providers Care Binder Folder Operator Name Role Phone Norman Ordonez MD Primary Care Provider [phone] Encounter Details Date Type Department Care Team (Latest Contact Info) Description 12/09/2024 Travel Social History Tobacco Use Types Packs/Day Years [...] is your housing situation today? I have jacquelinelulu boss 12/09/[address] you [...] AM EDT documented as of this encounter Functional Status * Over the past 2 weeks, how often have you been bothered by any of the following problems? Question Answer Date of Assessment Author Patient Health Questionnaire-2 Score 4 11/15 10:14 AM Evelyn Doshi [place] * Little interest or pleasure in doing things Answer Date of Assessment Author Nearly every day 12/09/2024 10:14 AM Evelyn Doshi [place] * Feeling down, depressed, or hopeless Answer Date of Assessment Author Several days 12/09/2024 10:14 AM Eleni Doshi [place] * Trouble falling or staying asleep, or sleeping too much Answer Date of Assessment Author Several days 12/09/2024 10:14 AM Eleni Doshi [place] * Feeling tired or having little energy Answer Date of Assessment Author Several days 12/09/2024 10:14 AM Eleni Doshi [place] * Poor appetite or overeating Answer Date of Assessment Author More than half the days 12/09/2024 10:14 AM Evelyn Doshi MA * Feeling bad about yourself - [...] 10:14 AM EDT Eleni Garibay MA * Moving or speaking so slowly [...] 10:14 AM EDT Eleni Garibay MA * Patient Health Questionnaire-9 Score Answer Date of Assessment Author 8 12/09/2024 10:14 AM EDT Eleni Garibya MA * How difficult have these problems made it for you to do your work, take care of things at home, or get along with other people? Answer Date of Assessment Author Not difficult at all 12/09/2024 10:14 AM EDT Evelyn Oleary MA documented as of this encounter Plan of Treatment Upcoming Encounters Date Type Department Care Team (Late st Contact Info) Description 12/12/2024 10:00 AM EDT Clinical Support [facility] MED & PEDS [address] [place] [address] 12/31/2024 10:30 AM EDT Office Visit [facility] OPTOMETRY [address] [place] [address] Shante Snowden, OD [address] [place] [address] 01/27/2025 11:30 AM EDT Office Visit [facility] CHC MED & PEDS [address] [place] [address] Norman Orodnez MD 505 [place] [address] documented as of this encounter Visit Diagnoses Not on filedocumented in this encounter Additional Health Concerns Assessment Noted Time PHQ-9 Depression Total Score: 8 12/10/19 10:14 AM EDT documented as of this encounter Care Teams Binder Folder Operator Relationship Specialty Start Date End Date Norman Ordonez MD [address] [place] [address] PCP - General Internal Medicine 03/05/15 documented as of this encounter
--- OUTSIDE RECORDS SUMMARY | 2024-12-09 11:17 | XMS_ITS | Encounter Summary ---
Author Organization [employer] Address [address] [place] [address] 7t [place] [address] Care Team Providers Care Ice Carver Name Role Phone Norman Ordonez MD Primary Care Provider [phone] Reason for Visit * Reason Comments Med Refill Encounter Details Date Type Department Care Team ([facility] Contact Info) Description 03/05/2024 Refill [facility] CHC ADULT DENTAL [address] [place] [address] Sterling Kelsey, DMD [address] [place] [address] History of tooth extraction, unspecified edentulism class [...] Telephone Encounter - Sterling Kelsey DMD - 03/05/2024 9:19 AM EST Approving, but needs appt for additional refills. documented in this encounter Plan of Treatment Upcoming Encounters Date Type Department Care Team (Late st Contact Info) Description 12/12/2024 10:00 AM EDT Clinical Support [facility] MED & PEDS [address] [place] [address] 12/31/2024 10:30 AM EDT Office Visit [facility] OPTOMETRY [address] [place] [address] Shante Snowden, OD [address] [facility] [address] 01/27/2025 11:30 AM EDT Office Visit [facility] MED & PEDS [address] [place] [address] Norman Ordonez MD 505 [place] [address] documented as of this encounter Visit Diagnoses Diagnosis History of tooth extraction, unspecified edentulism class documented in this encounter Additional Health Concerns Assessment Noted Time PHQ-9 Depression Total Score: 12 023 10:38 AM EST documented as of this encounter Care Teams Ice Carver Relationship Specialty Start Date End Date Norman Ordonez MD [address] [place] [address] PCP - General Internal Medicine 03/05/15 documented as of this encounter
--- OUTSIDE RECORDS SUMMARY | 2024-12-09 11:17 | XMS_ITS | Encounter Summary ---
Author Organization [employer] Address [address] [place] [address] 7 [place] [address] Care Team Providers Care Skin Diver Name Role Phone Norman Ordonez MD Primary Care Provider [phone] Reason for Visit * Reason Comments Med Refill Encounter Details Date Type Department Care Team (Late Contact Info) Description 08/01/2022 Refill [facility] CHC MED & PEDS [address] [place] [address] Norman Ordonez MD [address] [place] [address] Social History Tobacco Use Types Packs/Day Years [...] suspected to have Coronavirus/COVID-19? No / Unsure 08/01/2022 8:57 AM EDT documented as of this encounter Plan of Treatment Upcoming Encounters Date Type Department Care Team (Late Contact Info) Description 12/12/2024 10:00 AM EDT Clinical Support [facility] CHC MED & PEDS [address] [place] [address] 12/31/2024 10:30 AM EDT Office Visit [facility] OPTOMETRY [address] [place] [address] Shante Snowden, OD [address] [place] [address] 01/27/2025 11:30 AM EDT Office Visit [facility] CHC MED & PEDS [address] [place] [address] Norman Ordonez MD [address] [place] [address] documented as of this encounter Visit Diagnoses Not on filedocumented in this encounter Additional Health Concerns Assessment Noted Time PHQ-9 Depression Total Score: 4 05/08/19 23 9:57 AM EST documented as of this encounter Care Teams Skin Diver Relationship Specialty Start Date End Date Norman Ordonez MD [address] [place] [address] PCP - General Internal Medicine 03/05/15 documented as of this encounter
--- OUTSIDE RECORDS SUMMARY | 2024-12-09 11:17 | XMS_ITS | Encounter Summary ---
Author Organization [employer] Address [address] [facility] 7 [place] [address] Care Team Providers Care Lpta Name Role Phone Norman Ordonez MD Primary Care Provider [phone] Reason for Visit * Reason Onset Date Comments chart prep 12/08/2024 Encounter Details Date Type Department Care Team ([facility] st Contact Info) Description 12/08/2024 Telephone [facility] CHC MED & PEDS [address] [place] [address] Norman Ordonez MD [address] [place] [address] chart prep Social History Tobacco Use Types Packs/Day Years [...] Telephone Encounter - Radha Reddy RN - 12/08/2024 11:09 AM EDT Chart Prep Labs: done Images: done Referrals: not applicable Vaccines due: Hep B Screenings: colonoscopy Overdue care gaps: SDOH, PHQ-9, and Disability screen documented in this encounter Plan of Treatment Upcoming Encounters Date Type Department Care Team (Late st Contact Info) Description 12/12/2024 10:00 AM EDT Clinical Support [facility] CHC MED & PEDS [address] [place] [address] 12/31/2024 10:30 AM EDT Office Visit [facility] OPTOMETRY [address] [place] [address] Sp, Shante, OD [address] [place], [place] [address] 01/27/2025 11:30 AM EDT Office Visit [facility] MED & PEDS [address] [place] [address] Norman Ordonez MD [address] [place] [address] documented as of this encounter Visit Diagnoses Not on filedocumented in this encounter Additional Health Concerns Assessment Noted Time PHQ-9 Depression Total Score: 12 023 10:38 AM EST documented as of this encounter Care Teams Lpta Relationship Specialty Start Date End Date Norman Ordonez MD [address] [place] [address] PCP - General Internal Medicine 03/05/15 documented as of this encounter
--- OUTSIDE RECORDS SUMMARY | 2024-12-09 11:17 | XMS_ITS | Encounter Summary ---
Author Organization [employer] Address [address] [facility] 7t [place] [address] Care Team Providers Care Lock Technician Name Role Phone Norman Ordonez MD Primary Care Provider [phone] Encounter Details Date Type Department Care Team (Late st Contact Info) Description 02/08/2023 Abstract [facility] MEDICINE [address] [place] [address] Norman Ordonez MD [address] [facility] [place] [address] Social History Tobacco Use Types Packs/Day Years Used Date Smoking Tobacco: Some Days Cigarettes 0.2 25 Passive Smoke Exposure: Current Smokeless Tobacco: Never Comments:Has not smoke in a week. Alcohol Use Standard Drinks/Week Comments Yes 42 (1 standard drink = 0.6 oz pu re alcohol) Depression Answer Date Recorded Patient Health Questionnaire-9 Score 4 05/08/2022 Housing Stability Answer Date Recorded What is [...] Description 12/12/2024 10:00 AM EDT Clinical Support [facility] MED & PEDS [address] [place] [address] 12/31/2024 10:30 AM EDT Office Visit [facility] OPTOMETRY [address] [place] [address] SpShante, OD [address] [place] [address] 01/27/2025 11:30 AM EDT Office Visit [facility] MED & PEDS [address] [place], [place] [phone] Norman Ordonez MD 505 [place] [address] documented as of this encounter Procedures Procedure Name Priority Date/Time Associated Diagnosis Comments COLONOSCOPY Routine 12/21/2015 documented in this encounter Results * Colonoscopy (12/21/2015) Colonoscopy Normal Normal Narrative Fiorella Chyna - 12/21/2015 Recommended 5 year follow up due to tubular adenoma Historical Provider HEALTH MAINTENANCE Final Result documented in this encounter Visit Diagnoses Not on filedocumented in this encounter Additional Health Concerns Assessment Noted Time PHQ-9 Depression Total Score: 4 05/08/19 23 9:57 AM EST documented as of this encounter Care Teams Lock Technician Relationship Specialty Start Date End Date Norman Ordonez MD [address] [place] [address] PCP - General Internal Medicine 03/05/15 documented as of this encounter
--- OUTSIDE RECORDS SUMMARY | 2024-12-09 11:17 | XMS_ITS | Encounter Summary ---
Author Organization [employer] Address [address] [facility] [place] [address] [place] [address] Care Team Providers Care Film Waxer Name Role Phone Norman Ordonez MD Primary Care Provider [phone] Reason for Visit * Reason Comments Med Refill Encounter Details Date Type Department Care Team ([facility] Contact Info) Description 05/04/2022 Refill [facility] MEDICINE [address] [place] [address] Norman Ordonez MD [address] [place] [address] Chronic gouty arthritis Social History Tobacco Use Types Packs/Day Years Used Date Smoking Tobacco: Some Days Cigarettes 0.3 25 Passive Smoke Exposure: Never Smokeless Tobacco: Never Alcohol Use Standard Drinks/Week [...] suspected to have Coronavirus/COVID-19? No / Unsure 04/28/2022 9:50 AM EST documented as of this encounter Plan of Treatment Upcoming Encounters Date Type Department Care Team (Late Contact Info) Description 12/12/2024 10:00 AM EDT Clinical Support [facility] MED & PEDS [address] [place] [address] 12/31/2024 10:30 AM EDT Office Visit [facility] OPTOMETRY [address] [place] [address] Shante Snowden, OD [address] [place] [address] 01/27/2025 11:30 AM EDT Office Visit [facility] MED [facility] PEDS [address] [place] [address] Norman Ordonez MD [address] [place], [place] documented as of this encounter Visit Diagnoses Diagnosis Chronic gouty arthritis 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
--- OUTSIDE RECORDS SUMMARY | 2024-12-09 11:17 | XMS_ITS | Clinical Summary ---
Author Organization [employer] Address [address] [place] [address] 7t [place] [address] Care Team Providers Care Anatomy Teacher Name Role Phone Norman Ordonez MD Primary Care Provider [phone] Allergies Active Allergy Reactions Criticality Noted Date Comments Lisinopril 05/19/2021 Medications hydrocortisone 2.5 % cream apply by topical route every day to the affected area(s) 03/05/20 15 Active nicotine (Nicoderm, Step 3) 7 MG/24HR patch Place 1 patch on the skin. 08/12/19 22 Active hydroCHLOROthiaz rylee (Microzide) 12.5 MG capsuleIndicatio ns:Essential (primary) hypertension TAKE ONE CAPSULE BY MOUTH EVERY DAY 90 capsule 1 07/11/19 24 Active atorvastatin (Lipitor) 40 MG tabletIndication s:Hypercholester olemia Take 1 tablet (40 mg) by mouth in the morning. 30 tablet 12/26/19 24 Active allopurinol (Zyloprim) 300 MG tabletIndication s:Chronic gouty arthritis TAKE ONE TABLET DAILY 90 tablet 3 12/26/19 24 Active aspirin 81 MG EC tabletIndication s:Primary hypertension Take 1 tablet (81 mg) by mouth Once per day. daily 30 tablet 12/26/19 24 Active fenofibrate micronized (Lofibra) 134 MG capsuleIndicatio ns:Hypercholeste rolemia Take 1 capsule (134 mg) by mouth with breakfast. Daily with food 30 capsule 12/26/19 24 Active Omeprazole 20 MG tablet delayed-releaseI ndications:Gastr oesophageal reflux disease without esophagitis Take 20 mg by mouth Once per day. 30 tablet 12/26/19 24 Active ibuprofen 600 MG tabletIndication s:History of tooth extraction, unspecified edentulism class Take 1 tablet (600 mg) by mouth every 6 (six) hours if needed for mild pain for up to 20 doses. 20 tablet 01/16/20 24 Active omeprazole (PriLOSEC) [address] capsuleIndicatio ns:Gastroesophag eal reflux disease without esophagitis TAKE ONE CAPSULE BY MOUTH EVERY DAY BEFORE A MEAL 90 capsule 1 01/17/20 24 Active cyanocobalamin (Vitamin B-12) 1000 MCG/ML injectionIndicat ions:Deficiency of other specified B group vitamins INJECT ONE ML INTRAMUSCULARLY EVERY MONTH 1 mL 11 03/21/20 24 Active cyanocobalamin (Vitamin B-12) 1000 MCG/ML injectionIndicat ions:Deficiency of other specified B group vitamins INJECT ONE ML INTRAMUSCULARLY EVERY MONTH 1 mL 11 03/21/20 24 Active Acetaminophen Extra Strength 500 MG tabletIndication s:History of tooth extraction, unspecified edentulism class TAKE ONE TABLET EVERY 6 HOURS NEEDED FOR PAIN 20 tablet 04/18/19 25 Active atenolol (Tenormin) 50 MG tabletIndication s:Primary hypertension TAKE ONE TABLET ONCE DAILY 90 tablet 1 08/21/19 25 Active indomethacin (Indocin) 50 MG capsuleIndicatio ns:Chronic gouty arthritis TAKE ONE CAPSULE THREE TIMES DAILY WITH FOOD 15 capsule 2 10/15/19 25 Active Hospital, Clinic, or Other Facility Administered Medication Ordered Dose Route Frequency Start Date End Date Status cyanocobalamin (Vitamin B-12) injection 1,000 mcgIndications:B12 deficiency 1000 mcg IM Once 11/10/2024 11/10/2024 Ended Active Problems Problem Noted Date Diagnosed Date Dental calculus 12/06/2023 Periodontal disease 12/06/2023 Light cigarette smoker (1-9 cigs/day) 01/16/2022 Obesity with body mass index 30 or greater 05/19 Hypertensive disorder 11/21/2018 Steatosis of liver 11/21/2018 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/12/2017 Chronic gouty arthritis 05/18/2015 Cobalamin deficiency 03/23/2015 Encounters Date Type Department Care Team Description 12/09/2024 10:15 AM EDT Office Visit [facility] [address] [place] [address] Norman Ordonez MD Primary hypertension (Primary Dx); Steatosis of liver; Cobalamin deficiency; Screening for colon cancer; Dietary counseling; Exercise counseling; Class 2 severe obesity due to excess calories with serious comorbidity and body mass index (BMI) of 36.0 to 36.9 in adult (CMS/HCC); Encounter for immunization 12/09/2024 Travel 12/08/2024 Telephone [facility] [address] [place] [address] Norman Ordonez MD chart prep 11/10/2024 10:15 AM EDT Clinical Support [facility] [address] [place] [address] Germaine Buckley, LIYA B12 deficiency 11/10/2024 Travel 10/13/2024 11:30 AM EDT Clinical Support [facility] [address] [place] [address] Subha Franks, LIYA Cobalamin deficiency 10/13/2024 Travel 10/13/2024 Refill [facility] [address] [place] [address] Norman Ordonez MD Chronic gouty arthritis 09/12/2024 11:30 AM EDT Clinical Support [facility] [address] [place] [address] Cecilia Lopez RN B12 deficiency 09/12/2024 Travel from Last 3 Months Immunizations Immunization Administration Dates Next Due Hep B, adult 12/09/2024,04/18/2023,03/21/2023 Influenza injectable quadriv alent IIV4 with preservative 01/07/2018,02/28/2016 Influenza injectable quadriv alent preservative free 01/24/2023,01/16/2022,02/11/2021,2016,05/18/2015 Influenza, IIV3, injectable 03/25/2019 Influenza, seasonal, injecta ble, preservative free 12/26/2023 Pneumococcal Conjugate PCV 20 03/21/2023 Tdap 09/23/2015 Zoster, Recombinant 03/25/2019,01/23/2019 Family History Medical History Relation Name Comments Diabetes Father Hypertension Father Colon cancer Father's Brother Hypertension Mother Lung cancer Mother Relation Name Status Comments Father Father's Brother Mother Social History Tobacco Use Types Packs/Day Years Used Date Smoking Tobacco: Some Days Cigarettes 0.2 25 Passive Smoke Exposure: Current Smokeless Tobacco: Never Tobacco Cessation:Ready to Q uit: Not Asked; Counseling Given: Not Answered Comments:Has not smoke in a week. Alcohol [...] Orientation Straight 02/13/2022 10 :28 AM EDT Last Filed Vital Signs Vital Sign Reading [...] Mass Index 36.05 12/09/2024 9:51 AM EDT Plan of Treatment Upcoming Encounters Date Type Department Care Team (Late st Contact Info) Description 12/12/2024 10:00 AM EDT Clinical Support [facility]ED[facility] [address] [place] [address] 12/31/2024 10:30 AM EDT Office Visit [facility] OPTOMETRY [address] [place] [address] Sp, Shante, OD [address] [place] [address] 01/27/2025 11:30 AM EDT Office Visit [facility]ED[facility] [address] [place] [address] Norman Ordonez MD [address] [place] [address] Health Maintenance Due Date Last Done Comments CT Colonography 1963 FIT DNA/Cologuard 1963 FIT 1963 FOBT 1963 Sigmoidoscopy 1963 Disability Screening 1963 Hepatitis A Vaccines (1 of 2 - Risk 2-dose series) 1982 Colonoscopy 12/20/2020 12/21/2015 Colorectal Cancer Screening 12/20/2020 RSV Patients and Patients Aged 60 years or older (1 - Risk 60-74 years 1-dose series) 2023 COVID-19 Vaccine ( - 2023- season) 2023 Dental X-Ray: Bitewings 12/06/2024 12/06/2023, 11/09 Dental Oral Exam 12/11/2024 06/12/2024, , 11/09/2022 Dental Prophylaxis 12/11/2024 06/12/2024, 0 12/06/2023, 02/01/2023, Additional history exists Influenza Vaccine (#1) 2024 , 01/24/2023, 01/16/2022, Additional history exists DTaP/Tdap/Td Vaccines (2 - Td or Tdap) 09/22/2025 09/23/2015 Alcohol/Substance Use Screening 12/09/2025 12/09/2024 Depression Screening 12/09/2025 12/09/2024, 12/10/19 25 SDOH Screening 12/09/2025 12/09/2024 Tobacco Screening 12/09/2025 12/09/2024 Dental X-Ray: Full Mouth 12/14/2025 12/13/2022 Lipid Panel 12/25/2028 12/26/2023, 10/15, 01/17/2022, Additional history exists Zoster Vaccines Completed 03/25/2019, 01/23/2019 HIV Screening Completed 01/17/2022, 01/27/2021 Pneumococcal Vaccine: 50+ Years Completed 03/21/2023 Hepatitis C Screening Completed 12/26/2023 Hepatitis B Vaccines Completed 12/09/2024, 04/18/2023, 03/21/2023 HIB Vaccines Aged Out No longer eligi ble based on patient's age to complete this topic HPV Vaccines Aged Out No longer eligi ble based on patient's age to complete this topic IPV Vaccines Aged Out No longer eligi ble based on patient's age to complete this topic Meningococcal B Vaccine Aged Out No l onger eligible based on patient's age to complete this topic Meningococcal Vaccine Aged Out No venkatesh rohan eligible based on patient's age to complete this topic RSV under 20 months Aged Out No longe r eligible based on patient's age to complete this topic Rotavirus Vaccines Aged Out No longer eligible based on patient's age to complete this topic Procedures Procedure Name Priority Date/Time Associated Diagnosis Comments PROPHYLAXIS - ADULT Routine 06/12/2024 1 0:00 AM EST Periodontal disease PERIODIC ORAL EVALUATION - ESTABLISHED PATIENT Routine 06/12/2024 10:00 AM EST Periodontal disease HEPATITIS C AB W/REFL TO HCV RNA, QN, PCR Routine 12/26/2023 10:43 AM EDT Primary hypertension Hypercholesterolemi a Gastroesophageal reflux disease without esophagitis LIPID PANEL, STANDARD Routine 12/26/2023 10:43 AM EDT Hypercholesterolemi a BITEWINGS - 4 RADIOGRAPHIC IMAGES Routine 12/06/2023 2:30 PM EDT Dental caries PANORAMIC RADIOGRAPHIC IMAGE Routine 12/13/2022 9:00 AM EDT HIV 1/2 ANTIGEN/ANTIBODY, FOURTH GENERATION W/RFL Routine 01/17/2022 8:57 AM EDT HM COLONOSCOPY Routine 12/21/2015 from Last 3 Months or Most Recently Relevant to Health Maintenance Results * Hepatitis C Antibody with Reflex to HCV, RNA, Quantitative, Real-Time PCR (12/26/2023 10:43 AM EDT) Hepatitis C Antibody Nonreactive Nonreactive LABS Comment:Antibodies to HCV no t detected; does not exclude early acuteHCV infection. Blood Venous blood specimen / Unknown 12/26/2023 10:43 AM EDT 12/26/2023 1:46 PM EDT us Norman Ordonez MD LAB BLOOD ORDERABLES Final Result LABS [address] [place] [address] [phone] * (ABNORMAL) Lipid Panel, Standard (12/26/2023 10:43 AM EDT) Triglycerides 156(H) <150 mg/dL [facility] LAB[facility] Comment:Desirable Triglyceri de: less than 150 mg/dLBorderline High Triglyceride 150-199 mg/dLHigh Triglyceride: 200-499 mg/dLVery High Triglyceride: greater than or equal to 5OO mg/dL Cholesterol 115 <200 mg/dL LABS Comment:Desirable Cholestero l: less than 200 mg/dLBorderline High Cholesterol: 200-239 mg/dLHigh Cholesterol: greater than 239 mg/dL LDL Cholesterol Calculated 45 <100 mg/dL LABS Comment:Desirable LDL: less than 100 mg/dLNear Optimal/Above Optimal LDL: 110- 129 mg/dLBorderline High LDL: 130-159 mg/dLHigh LDL: 160-189 mg/dLVery High LDL: greater than or equal to 190 mg/dL HDL Cholesterol 39(L) >40 mg/dL [facility] Comment:Desirable HDL: great er than 40 mg/dL Note: This HDL assay may give artificially low results in patients with liver disease. Blood Venous blood specimen / Unknown 12/26/2023 10:43 AM EDT 12/26/2023 1:46 PM EDT us Norman Ordonez MD LAB BLOOD ORDERABLES Final Result LABS [address] [place] [phone] * HIV 1/2 ANTIGEN/ANTIBODY,FOURTH GENERATION W/RFL (01/17/2022 8:57 AM EDT) Pathologist [facility] HIV-1/2 ANTIGEN AND ANTIBODIES, 4TH GENERATION W/ REFLEX NON-REACT BERNICE NON-REACT BERNICE CONVERTED LEGACY LABS Comment: HIV-1 antigen and HIV-1/HIV-2 antibodies were not detected. There is no laboratory evidence of HIV infection. PLEASE NOTE: This information has been disclosed to you from records whose confidentiality may be protected by state law. If your state requires such protection, then the state law prohibits you from making any further disclosure of the information without the specific written consent of the person to whom it pertains, or as otherwise permitted by law. A general authorization for the release of medical or other information is NOT sufficient for this purpose. For additional information please refer to http://education.[employer].OneMedNet/faq/RUO379 (This link is being provided for informational/ educational purposes only.) The performance of this assay has not been clinically validated in patients less than 2 years old. 01/17/2022 8:57 AM EDT Norman Ordonez MD LAB BLOOD ORDERABLES Final Result CONVERTED LEGACY LABS * Colonoscopy (12/21/2015) Colonoscopy Normal Normal Narrative Chyna Barros - 12/21/2015 Recommended 5 year follow up due to tubular adenoma Historical Provider HEALTH MAINTENANCE Final Result from Last 3 Months or Most Recently Relevant to Health Maintenance Insurance [facility] C3 DENTAL-[facility] MEDICAID STAND ADULT Care Teams Anatomy Teacher Relationship Specialty Start Date End Date Norman Ordonez MD [address] [place], [place] [address] [id number] PCP - General Internal Medicine 03/05/15
--- OUTSIDE RECORDS SUMMARY | 2024-12-09 11:17 | XMS_ITS | Encounter Summary ---
Author Organization [employer] Address [address] [place] [address] [address] [address] Care Team Providers Care Dental Instrument Maker Name Role Phone Norman Ordonez MD Primary Care Provider [phone] Encounter Details Date Type Department Care Team (Latest Contact Info) Description 05/30/[address] [facility] CONVERSIONS Dental, Provider, DDS Social History [...] Description 12/12/2024 10:00 AM EDT Clinical Support [facility] MED & PEDS [address] [place] [address] 12/31/2024 10:30 AM EDT Office Visit [facility] OPTOMETRY [address] [place] [address] Sp, Shante, OD [address] [place] [address] 01/27/2025 11:30 AM EDT Office Visit [facility] MED & PEDS [address] [place] [address] Norman Ordonez MD [address] [place] [address] documented as of this encounter Visit Diagnoses Not on filedocumented in this encounter Care Teams Dental Instrument Maker Relationship Specialty Start Date End Date Norman Ordonez MD [address] [place] [id number] PCP - General Internal Medicine 03/05/15 documented as of this encounter
--- OUTSIDE RECORDS SUMMARY | 2024-12-09 11:17 | XMS_ITS | Encounter Summary ---
Author Organization [employer] Address [address] [place] [address] [address] [place] [address] Care Team Providers Care Income Tax Preparer Name Role Phone Norman Ordonez MD Primary Care Provider [phone] Reason for Visit * Reason Comments Med Refill Encounter Details Date Type Department Care Team ([facility] Contact Info) Description 04/18/2024 Refill [facility] ADULT DENTAL [address] [place] [address] Sterling Kelsey, DMD [address] [place] [address] History of tooth extraction, unspecified edentulism class [...] Telephone Encounter - Sterling Kelsey DMD - 04/18/2024 2:09 PM EST Approving, but needs appt for additional refills. documented in this encounter Plan of Treatment Upcoming Encounters Date Type Department Care Team (Late st Contact Info) Description 12/12/2024 10:00 AM EDT Clinical Support [facility] MED & PEDS [address] [place] [address] 12/31/2024 10:30 AM EDT Office Visit [facility] OPTOMETRY [address] [place] [address] Shante Snowden, OD [address] [facility] [place] [address] 01/27/2025 11:30 AM EDT Office Visit [facility] MED & PEDS [address] [place] [address] Norman Ordonez MD [address] [place] [address] documented as of this encounter Visit Diagnoses Diagnosis History of tooth extraction, unspecified edentulism class documented in this encounter Additional Health Concerns Assessment Noted Time PHQ-9 Depression Total Score: 12 023 10:38 AM EST documented as of this encounter Care Teams Income Tax Preparer Relationship Specialty Start Date End Date Norman Ordonez MD [address] [place] [phone] PCP - General Internal Medicine 03/05/15 documented as of this encounter
--- OUTSIDE RECORDS SUMMARY | 2024-12-09 11:17 | XMS_ITS | Encounter Summary ---
Author Organization [employer] Address [address] [place] [address] Care Team Providers Care Temporary Receptionist Name Role Phone Norman Ordonez MD Primary Care Provider [phone] Encounter Details Date Type Department Care Team (Latest Contact Info) Description 07/19/2021 Abstract [facility] CONVERSIONS Dental, Provider, DDS Social History [...] Encounters Date Type Department Care Team ( st Contact Info) Description 12/12/2024 10:00 AM EDT Clinical Support [facility] MED & PEDS [address] [place] [address] 12/31/2024 10:30 AM EDT Office Visit [facility] OPTOMETRY [address] [place] [address] Sp, Shante, OD [address] [place] [address] 01/27/2025 11:30 AM EDT Office Visit [facility] MED & PEDS [address] [place] [address] Norman Ordonez MD [address] [place] [address] documented as of this encounter Visit Diagnoses Not on filedocumented in this encounter Care Teams Temporary Receptionist Relationship Specialty Start Date End Date Norman Ordonez MD [address] [place] [id number] PCP - General Internal Medicine 03/05/15 documented as of this encounter
--- OUTSIDE RECORDS SUMMARY | 2024-12-09 11:17 | XMS_ITS | Encounter Summary ---
Author Organization [employer] Address [address] [place] [address] [address] [place] [address] Care Team Providers Care Or Director Name Role Phone Norman Ordonez MD Primary Care Provider [phone] Encounter Details Date Type Department Care Team (Late Contact Info) Description 03/22/2022 Orders Only [facility] MEDICINE [address] [place] [address] Norman Ordonez MD [address] [place], [place] [phone] Vitamin B12 deficiency (Primary Dx); Primary hypertension Social History Tobacco Use Types Packs/Day Years [...] suspected to have Coronavirus/COVID-19? No / Unsure 03/22/2022 1:43 PM EST documented as of this encounter Plan of Treatment Upcoming Encounters Date Type Department Care Team (Late Contact Info) Description 12/12/2024 10:00 AM EDT Clinical Support [facility] MED & PEDS [address] [place], [place] [id number] 12/31/2024 10:30 AM EDT Office Visit [facility] OPTOMETRY [address] [place], [place] [phone] Shante Snowden, OD [address] [place] [address] 01/27/2025 11:30 AM EDT Office Visit [facility] MED & PEDS [address] [place] [address] Norman Ordonez MD [address] [place] [address] documented as of this encounter Visit Diagnoses Diagnosis Vitamin B12 deficiency- Primary Other B-complex deficiencies Primary hypertension Unspecified essential hypertension documented in this encounter Care Teams Or Director Relationship Specialty Start Date End Date Norman Ordonez MD [address] [place] [address] PCP - General Internal Medicine 03/05/15 documented as of this encounter
[2024-12-09 14:05] LABS: MANUAL DIFF FLAG NO
[2024-12-09 14:21] LABS: Hematocrit 40.6 % (42.0-52.0); Hemoglobin 13.5 g/dl (14.0-18.0); Imm Gran Abs Auto 0.01 X10*3/uL (0.00-0.03); Imm Gran Pct Auto 0.2 % (0.0-0.4); Lymphocytes Absolute Auto 1.9 X10*3/uL (1.2-4.9); Mean Corpuscular HGB Conc 33.3 g/dl (31.0-36.0); Mean Corpuscular Hemoglobin 30.8 pg (27.0-33.0); Mean Corpuscular Volume 92.5 fL (80.0-98.0); NRBC Abs Auto 0.000 X10*3/uL (0.0-0.012); NRBC Pct Auto 0.0 /100WBC (0.0-0.2); Platelet Count 233 X10*3/uL (160-400); Red Blood Count 4.39 X10*6/uL (4.60-5.80); White Blood Count 5.8 X10*3/uL (4.8-10.8)
[2024-12-09 15:00] LABS: Alanine Aminotransferase 27 U/L (0-40); Albumin Level 4.5 g/dL (3.5-5.0); Alkaline Phosphatase 50 U/L (39-117); Anion Gap 15 (12-20); Aspartate Amino Transferase 33 U/L (5-37); Blood Urea Nitrogen 14 mg/dL (9-16); Calcium 8.9 mg/dL (8.4-10.2); Carbon Dioxide 25 mmol/L (22-29); Chloride 108 mmol/L (96-108); Cholesterol 145 mg/dL (<200); Estimated Glomerular Filt Rate > 60; HDL Cholesterol 38 mg/dL (>40); Potassium 4.5 mmol/L (3.3-5.1); Sodium 143 mmol/L (135-145); Total Protein 7.0 g/dL (6.5-8.0); Triglycerides 128 mg/dL (<150)
[2024-12-09 15:16] LABS: Folate 9.6 ng/mL (> or = 4.0); Vitamin B12 466 pg/mL (200-900)
== END 2024-12-09 10:32 | disposition home or self-care (01) ==
LOC: HO.CHCLDS 10:31
PROVIDERS: Visit Provider Internal Medicine
DX: I10 Essential (primary) hypertension (principal); E53.8 Deficiency of other specified B group vitamins
CPT/HCPCS: 36415; 80053; 80061; 82607; 82746; 84443; 85025

== ENCOUNTER 2025-01-27 14:06 | Outpatient (REF) | payer MEDICAID, SELFPAY ==
--- OUTSIDE RECORDS SUMMARY | 2025-01-27 11:30 | XMS_ITS | Encounter Summary ---
Author Organization [employer] Address [address] [facility] 7 [place] [address] Care Team Providers Care Nozzle Tender Name Role Phone Norman Ordonez MD Primary Care Provider [phone] Reason for Visit * Reason Comments Hyperlipidemia Obesity Encounter Details Date Type Department Care Team ([facility] Contact Info) Description 01/27/2025 11:30 AM EDT Office Visit [facility] CHC MED & PEDS [address] [place] [address] Norman Ordonez MD [address] [place] [address] Primary hypertension (Primary Dx); Encounter for immunization; Class 2 severe obesity due to excess calories with serious comorbidity and body mass index (BMI) of 36.0 to 36.9 in adult; Steatosis of liver; Rectal bleed Social History Tobacco Use Types Packs/Day Years [...] Sign Reading Time Taken Comments Blood Pressure 134/86 01/27/2025 11:17 AM EDT Pulse 54 01/27/2025 11:17 AM EDT Temperature - - Respiratory Rate 20 01/27/2025 11:17 AM EDT Oxygen Saturation 98% 01/27/2025 11:17 AM EDT Inhaled Oxygen Concentration - - Weight 96.6 kg (213 lb) 01/27/2025 11:17 AM EDT Height 162.6 cm (5' 4 ) 01/27/2025 11:17 AM EDT Body Mass Index 36.56 01/27/2025 11:17 AM EDT documented in this encounter Progress Notes * Norman Ordonez MD - 01/27/2025 11:30 AM EDT SUBJECTIVE Efe Garcia is a 59 y.o. male who presents for Hyperlipidemia and Obesity. Hyperlipidemia This is a chronic problem. The problem is controlled. There are no known factors aggravating his hyperlipidemia. Pertinent negatives include no chest pain, focal sensory loss, focal weakness, leg pain, myalgias or shortness of breath. The current treatment provides significant improvement of lipids. There are no compliance problems. Risk factors for coronary artery disease include hypertension, male sex, obesity and a sedentary lifestyle. H/o hypertension. Pt is compliant to his meds. NO reported side effect. He is much interested in getting help to loose weight. Has not notice any recent rectaL Bleed. He has a scheduled appointment with GI in February. Denies any acute event since his last office visit. Problem List[1] Allergies[2] Medications Ordered Prior to Encounter[3] Review of Systems Constitutional: Negative for appetite change, chills and diaphoresis. HENT: Negative for ear discharge, ear pain and facial swelling. Respiratory: Negative for shortness of breath. Cardiovascular: Negative for chest pain. Musculoskeletal: Negative for myalgias. Neurological: Negative for focal weakness. OBJECTIVE Vitals: 01/27/25 1117 BP: 134/86 BP Location: Left arm Patient Position: Sitting BP Cuff Size: Adult long Pulse: 54 Resp: 20 SpO2: 98% Weight: 213 lb (96.6 kg) Height: 5' 4 (1.626 m) Physical Exam Constitutional: General: He is not in acute distress. Appearance: Normal appearance. He is not ill-appearing, toxic-appearing or diaphoretic. Cardiovascular: Rate and Rhythm: Normal rate. Pulmonary: Effort: Pulmonary effort is normal. Neurological: General: No focal deficit present. Mental Status: He is alert. Psychiatric: Mood and Affect: Mood normal. Assessment/Plan Assessment/Plan Diagnoses and all orders for this visit: Primary hypertension Comments: Controlled No change DASH diet Encounter for immunization - FLU VACCINE TRIVALENT [id number] (Fluarix) 19 yrs + Class 2 severe obesity due to excess calories with serious comorbidity and body mass index (BMI) of36.0 to 36.9 in adult - Tirzepatide-Weight Management (Zepbound) 2.5 MG/0.5ML solution auto-injector; Inject 0.5 mL (2.5 mg) under the skin 1 (one) time per week. Reviewed indications for pharmacotherapy with patient, which is treatment for patient w/ obesity ora patient with a BMI > 27 w/ CV risk factors who have failed lifestyle modifications alone. These are always prescribed in combination with ongoing lifestyle modification; and will be titrated up from the lowest dose. Will start patient on Zepbound, given know efficacy. Reviewed mechanism of action with patient. Discussed side effects with patient: nausea, vomiting, diarrhea & risk of pancreatitis. No contraindications identified: , hx of pancreatitis, hx of medullary thyroid cancer or MEN 2. Discussed calorie deficit, recommended reduction of 20-30% of maintenance calories; can closing machine tender referral offered. Recommended to decrease soda and sugary beverage consumption. Recommended at least 20 g per meal of protein to assist with satiety. Recommended at least 150 min/week of moderate intensity exercise. Steatosis of liver Comments: To avoid hepatotoxic medication GI eval as scheduled. Rectal bleed Comments: GI eval Pt needs his repeat colonoscopy. [1] Patient Active Problem List Diagnosis Chronic [...] TAKE ONE TABLET DAILY 90 tablet 3 Aspirin Adult Low Strength 81 MG EC tablet TAKE ONE TABLET EVERY DAY 90 tablet 3 atenolol (Tenormin) 50 MG tablet TAKE ONE [...] prior to visit. documented in this encounter Plan of Treatment Upcoming Encounters Date Type Department Care Team (Late st Contact Info) Description 02/09/2025 11:00 AM EDT Clinical Support [facility] MED & PEDS [address] [place] [address] 03/10/2025 11:30 AM EST Office Visit [facility] MED & PEDS [address] [place] [address] Norman Ordonez MD [address] [place] [address] documented as of this encounter Visit Diagnoses Diagnosis Primary hypertension- Primary Unspecified essential hypertension Encounter for immunization Class 2 severe obesity due to excess calories with serious comorbidity and body mass index (BMI) of 36.0 to 36.9 in adult Steatosis of liver Other chronic nonalcoholic liver disease Rectal bleed Hemorrhage of rectum and anus documented in this encounter Additional Health Concerns Assessment Noted Time PHQ-9 Depression Total Score: 8 12/10/19 10:14 AM EDT documented as of this encounter Care Teams Nozzle Tender Relationship Specialty Start Date End Date Norman Ordonez MD [address] [place] [address] PCP - General Internal Medicine 03/05/15 documented as of this encounter
--- OUTSIDE RECORDS SUMMARY | 2025-01-27 17:03 | XMS_ITS | Encounter Summary ---
Author Organization [employer] Address [address] [place] [address] 7t [place] [address] Care Team Providers Care Ash Pit Worker Name Role Phone Norman Ordonez MD Primary Care Provider [phone] Reason for Visit * Reason Comments Med Refill Encounter Details Date Type Department Care Team ([facility] Contact Info) Description 03/05/[address] [facility] CHC ADULT DENTAL [address] [place] [address] Sterling Kelsey, DMD [address] [place] [address] History of tooth extraction, unspecified edentulism class [...] Description 02/09/2025 11:00 AM EDT Clinical Support [facility] MED & PEDS [address] [place] [address] 03/10/2025 11:30 AM EST Office Visit [facility] MED & PEDS [address] [place] [address] Norman Ordonez MD [address] [place] [address] documented as of this encounter Visit Diagnoses Diagnosis History of tooth extraction, unspecified edentulism class documented in this encounter Additional Health Concerns Assessment Noted Time PHQ-9 Depression Total Score: 12 023 10:38 AM EST documented as of this encounter Care Teams Ash Pit Worker Relationship Specialty Start Date End Date Norman Ordonez MD [address] [place] [address] PCP - General Internal Medicine 11/20/15 documented as of this encounter
--- OUTSIDE RECORDS SUMMARY | 2025-01-27 17:03 | XMS_ITS | Encounter Summary ---
Author Organization [employer] Address [address] [place] [address] 7 [place] [address] Care Team Providers Care Fine Dining Server Name Role Phone Norman Ordonez MD Primary Care Provider [phone] Encounter Details Date Type Department Care Team ([facility] Contact Info) Description 03/22/2022 Orders Only [facility] MEDICINE [address] [place] [address] Norman Ordonez MD [address] [place], [place] [phone] Vitamin B12 deficiency (Primary Dx); Primary hypertension [...] Department Care Team (Late Contact Info) Description 02/09/2025 11:00 AM EDT Clinical Support [facility] CHC MED & PEDS [address] [place], [place] [id number] 03/10/2025 11:30 AM EST Office Visit [facility] MED [facility] PEDS [address] [place], [place] [phone] Norman Ordonez MD [address] [place] [address] documented as of this encounter Visit Diagnoses Diagnosis Vitamin B12 deficiency- Primary Other B-complex deficiencies Primary hypertension Unspecified essential hypertension documented in this encounter Care Teams Fine Dining Server Relationship Specialty Start Date End Date Norman Ordonez MD [address] [place] [address] PCP - General Internal Medicine 03/05/15 documented as of this encounter
--- OUTSIDE RECORDS SUMMARY | 2025-01-27 17:03 | XMS_ITS | Encounter Summary ---
Author Organization [employer] Address [address] [place] [address] Care Team Providers Care Cemetery Counselor Name Role Phone Norman Ordonez MD Primary Care Provider [phone]- [phone] Encounter Details Date Type Department Care Team (Late st Contact Info) Description 03/13/[address] [facility] MEDICINE [address] [place] [address] ProviderBryce MD Social History Tobacco Use Types Packs/Day Years [...] Description 02/09/2025 11:00 AM EDT Clinical Support [facility] MED & PEDS [address] [place] [address] 03/10/2025 11:30 AM EST Office Visit [facility] MED & PEDS [address] [place] [address] Norman Ordonez MD [address] [place] [address] documented as of this encounter Visit Diagnoses Not on filedocumented in this encounter Care Teams Cemetery Counselor Relationship Specialty Start Date End Date Norman Ordonez MD [address] [place] [address] PCP - General Internal Medicine 03/05/15 documented as of this encounter
--- OUTSIDE RECORDS SUMMARY | 2025-01-27 17:03 | XMS_ITS | Encounter Summary ---
Author Organization [facility] Address [address] [place] [address] Care Team Providers Care Master [place] Name Role Phone Norman Ordonez MD Primary Care Provider [phone] Encounter Details Date Type Department Care Team (Latest Contact Info) Description 07/19/2021 Abstract [facility] CONVERSIONS Dental, Provider, DDS Social History Tobacco [...] Care Team ( st Contact Info) Description 02/09/2025 11:00 AM EDT Clinical Support [facility] MED & PEDS [address] [place] [address] 03/10/2025 11:30 AM EST Office Visit [facility] MED & PEDS [address] [place] [address] Norman Ordonez MD [address] [place] [address] documented as of this encounter Visit Diagnoses Not on filedocumented in this encounter Care Teams Master [place] Relationship Specialty Start Date End Date Norman Ordonez MD [address] [place] [address] PCP - General Internal Medicine 03/05/15 documented as of this encounter
--- OUTSIDE RECORDS SUMMARY | 2025-01-27 17:03 | XMS_ITS | Encounter Summary ---
Author Organization [employer] Address [address] [place] [address] 7t [place] [address] Care Team Providers Care Pulling Unit Operator Name Role Phone Norman Ordonez MD Primary Care Provider [phone] Reason for Visit * Reason Comments Med Refill Encounter Details Date Type Department Care Team ([facility] Contact Info) Description 04/18/2024 Refill [facility] CHC ADULT DENTAL [address] [place] [address] Sterling Kelsey, DMD [address] [place] [address] History of tooth extraction, unspecified edentulism class [...] 11:00 AM EDT Clinical Support [facility] MED & PEDS [address] [place] [address] 03/10/2025 11:30 AM EST Office Visit [facility] MED & PEDS [address] [place] [address] Norman Ordonez MD [address] [place] [address] documented as of this encounter Visit Diagnoses Diagnosis History of tooth extraction, unspecified edentulism class documented in this encounter Additional Health Concerns Assessment Noted Time PHQ-9 Depression Total Score: 12 023 10:38 AM EST documented as of this encounter Care Teams Pulling Unit Operator Relationship Specialty Start Date End Date Norman Ordonez MD [address] [place] [address] PCP - General Internal Medicine 11/20/15 documented as of this encounter
--- OUTSIDE RECORDS SUMMARY | 2025-01-27 17:03 | XMS_ITS | Encounter Summary ---
Author Organization [employer] Address [address] [place] [address] 7[address] [place] [address] Care Team Providers Care Box Stacker Name Role Phone Norman Ordonez MD Primary Care Provider [phone] Reason for Visit * Reason Comments Med Refill Encounter Details Date Type Department Care Team ([facility] Contact Info) Description 02/01/2024 Refill [facility] CHC ADULT DENTAL [address] [place] [address] Sterling Kelsey, DMD [address] [place] [address] History of tooth extraction, unspecified edentulism class [...] Description 02/09/2025 11:00 AM EDT Clinical Support [facility] MED & PEDS [address] [place] [address] 03/10/2025 11:30 AM EST Office Visit [facility] MED & PEDS [address] [place] [address] Norman Ordonez MD [address] [place] [address] documented as of this encounter Visit Diagnoses Diagnosis History of tooth extraction, unspecified edentulism class documented in this encounter Additional Health Concerns Assessment Noted Time PHQ-9 Depression Total Score: 12 023 10:38 AM EST documented as of this encounter Care Teams Box Stacker Relationship Specialty Start Date End Date Norman Ordonez MD [address] [place] [address] PCP - General Internal Medicine 03/05/15 documented as of this encounter
--- OUTSIDE RECORDS SUMMARY | 2025-01-27 17:03 | XMS_ITS | Encounter Summary ---
Author Organization [employer] [facility] Address [address] [place] [address] Care Team Providers Care Vinyl Dipper Name Role Phone Norman Ordonez MD Primary Care Provider [phone] Encounter Details Date Type Department Care Team (Latest Contact Info) Description 11/28/2018 Abstract [facility] CONVERSION[facility] Dental, Provider, DDS Social History Tobacco [...] Description 02/09/2025 11:00 AM EDT Clinical Support [facility] MED & PEDS [address] [place] [address] 03/10/2025 11:30 AM EST Office Visit [facility] MED & PEDS [address] [place] [address] Norman Ordonez MD [address] [place] [address] documented as of this encounter Visit Diagnoses Not on filedocumented in this encounter Care Teams Vinyl Dipper Relationship Specialty Start Date End Date Norman Ordonez MD [address] [place] [address] PCP - General Internal Medicine 03/05/15 documented as of this encounter
--- OUTSIDE RECORDS SUMMARY | 2025-01-27 17:03 | XMS_ITS | Encounter Summary ---
Author Organization [employer] Address [address] [facility] 7t [place] [address] Care Team Providers Care Painter And Decorator Name Role Phone Norman Ordonez MD Primary Care Provider [phone]- [phone] Reason for Visit * Reason Comments Med Refill Encounter Details Date Type Department Care Team ([facility] Contact Info) Description 05/04/2022 Refill [facility] MEDICINE [address] [place] [address] Norman Ordonez MD [address] [facility] [place] [address] Chronic gouty arthritis Social History Tobacco Use [...] Description 02/09/2025 11:00 AM EDT Clinical Support [facility] MED & PEDS [address] [place] [address] 03/10/2025 11:30 AM EST Office Visit [facility] MED & PEDS [address] [place] [address] Norman Ordonez MD [address] [place] [address] documented as of this encounter Visit Diagnoses Diagnosis Chronic gouty arthritis 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
--- OUTSIDE RECORDS SUMMARY | 2025-01-27 17:03 | XMS_ITS | Encounter Summary ---
Author Organization [facility] Address [address] [place] [address] Care Team Providers Care Site Monitor Name Role Phone Norman Ordonez MD Primary Care Provider [phone] Encounter Details Date Type Department Care Team (Latest Contact Info) Description 05/30/2018 Abstract [facility] CONVERSIONS Dental, Provider, DDS Social History [...] 02/09/2025 11:00 AM EDT Clinical Support [facility] MED & PEDS [address] [place] [address] 03/10/2025 11:30 AM EST Office Visit [facility] MED & PEDS [address] [place] [address] Norman Ordonez MD [address] [place] [address] documented as of this encounter Visit Diagnoses Not on filedocumented in this encounter Care Teams Site Monitor Relationship Specialty Start Date End Date Norman Ordonez MD [address] [place] [address] PCP - General Internal Medicine 03/05/15 documented as of this encounter
--- OUTSIDE RECORDS SUMMARY | 2025-01-27 17:04 | XMS_ITS | Encounter Summary ---
Author Organization [employer] Address [address] [facility] [address] 7[address] [place] [address] Care Team Providers Care Tongue Binder Name Role Phone Norman Ordonez MD Primary Care Provider [phone] Encounter Details Date Type Department Care Team (Latest Contact Info) Description 01/27/2025 Travel Social History Tobacco Use Types Packs/Day [...] Description 02/09/2025 11:00 AM EDT Clinical Support [facility] MED & PEDS [address] [place] [address] 03/10/2025 11:30 AM EST Office Visit [facility] MED & PEDS [address] [place] [address] Norman Ordonez MD [address] [place] [address] documented as of this encounter Visit Diagnoses Not on filedocumented in this encounter Additional Health Concerns Assessment Noted Time PHQ-9 Depression Total Score: 8 12/10/19 10:14 AM EDT documented as of this encounter Care Teams Tongue Binder Relationship Specialty Start Date End Date Norman Ordonez MD [address] [place] [address] PCP - General Internal Medicine 03/05/15 documented as of this encounter
--- OUTSIDE RECORDS SUMMARY | 2025-01-27 17:04 | XMS_ITS | Encounter Summary ---
Author Organization [employer] Address [address] [facility] 7t [place] [address] Care Team Providers Care Buffer Nickel Name Role Phone Norman Ordonez MD Primary Care Provider [phone] Encounter Details Date Type Department Care Team (Late st Contact Info) Description 02/08/2023 Abstract [facility] MEDICINE [address] [place] [address] Norman Ordonez MD [address] [facility] [address] [place] [address] Social History Tobacco Use Types Packs/Day Years [...] Description 02/09/2025 11:00 AM EDT Clinical Support [facility] MED & PEDS [address] [place] [address] 03/10/2025 11:30 AM EST Office Visit [facility] MED & PEDS [address] [place] [address] Norman Ordonez MD [address] [place] [address] documented as of this encounter Procedures Procedure Name Priority Date/Time Associated Diagnosis Comments COLONOSCOPY Routine 12/21/2015 documented in this encounter Results * Colonoscopy (12/21/2015) Colonoscopy Normal Normal Narrative Chyna Barros - 12/21/2015 Recommended 5 year follow up due to tubular adenoma us Historical Provider HEALTH MAINTENANCE Final Result documented in this encounter Visit Diagnoses Not on filedocumented in this encounter Additional Health Concerns Assessment Noted Time PHQ-9 Depression Total Score: 4 05/08/19 23 9:57 AM EST documented as of this encounter Care Teams Buffer Nickel Relationship Specialty Start Date End Date Norman Ordonez MD [address] [place] [address] PCP - General Internal Medicine 03/05/15 documented as of this encounter
--- OUTSIDE RECORDS SUMMARY | 2025-01-27 17:04 | XMS_ITS | Encounter Summary ---
Author Organization [employer] Address [address] [facility] 7 [place] [address] Care Team Providers Care Handy Worker Name Role Phone Norman Ordonez MD Primary Care Provider [phone] Reason for Visit * Reason Onset Date Comments Medication Question 03/28/2023 Encounter Details Date Type Department Care Team ([facility] Contact Info) Description 03/28/2023 Telephone [facility] CHC MED & PEDS [address] [place] [address] Norman Ordonez MD [address] [place] [address] Medication Question Social History Tobacco Use Types [...] PM EST Updated med list sent to [facility] as requested. * Telephone Encounter - Dulce Maria Earl - 03/28/2023 1:16 PM EST Tc from Terry with [facility] requesting a call from a nurse in regards to pt medication list not adding up or matching and requesting a new updated copy of pt med list. Please fax over to [phone] Please contact Terry @ [phone] documented in this encounter Plan of Treatment Upcoming Encounters Date Type Department Care Team ([facility] st Contact Info) Description 02/09/2025 11:00 AM EDT Clinical Support [facility] MED & PEDS [address] [place] [address] 03/10/2025 11:30 AM EST Office Visit [facility] MED & PEDS [address] [place] [address] Norman Ordonez MD [address] [place] [address] documented as of this encounter Visit Diagnoses Not on filedocumented in this encounter Additional Health Concerns Assessment Noted Time PHQ-9 Depression Total Score: 12 023 10:38 AM EST documented as of this encounter Care Teams Handy Worker Relationship Specialty Start Date End Date Norman Ordonez MD [address] [place] [address] PCP - General Internal Medicine 03/05/15 documented as of this encounter
--- OUTSIDE RECORDS SUMMARY | 2025-01-27 17:04 | XMS_ITS | Encounter Summary ---
Author Organization [employer] Address [address] [place] [address] [address], [place] [address] Care Team Providers Care Tool Repairer Bench Name Role Phone Norman Ordonez MD Primary Care Provider [phone] Reason for Referral * Consultation (Urgent) - Authorized Specialty Diagnoses / Procedures Referred By Contvalentin t Referred To Contact Gastroenterology Diagnoses Rectal bleed Norman Ordonez MD [address] [place] [address] Phone: tel: fax: Saige Pillai MD [address] [place] [phone] Phone: tel: fax: Referral ID Status Reason Start Date Expiration Date Visits Requested Visits Authorized [id number] Authorized Specialty Services Required 12/12/2024 12/12/2025 1 1 Encounter Details Date Type Department Care Team ([facility] st Contact Info) Description 12/12/2024 Orders Only [facility] [address] [place] [address] Norman Ordonez MD [address] [place], [place] [phone] Rectal bleed (Primary Dx) Social History Tobacco Use Types [...] Description 02/09/2025 11:00 AM EDT Clinical Support [facility] [address] [place] [address] 03/10/2025 11:30 AM EST Office Visit [facility] [address] [place] [address] Norman Ordonez MD [address] [place] [address] Scheduled Orders Name Type Priority Associated Diagnoses Orde r Schedule Iron And Total Iron Binding Capacity Lab Routine Rectal bleed Expected: 01/07/2025 (Approximate), Expires: 12/12/2025 Ferritin Lab Routine Rectal bleed Expected: 01/07/2025 (Approximate), Expires: 12/12/2025 Reticulocyte Count Lab Routine Rectal bleed Expected: 01/07/2025 (Approximate), Expires: 12/12/2025 Scheduled Referrals Name Type Priority Associated Diagnoses Order Schedule Referral to Gastroenterology Outpatient Referral Urgent Rectal bleed Expected: 12/12/2024 (Approximate), Expires: 12/12/2025 documented as of this encounter Visit Diagnoses Diagnosis Rectal bleed- Primary Hemorrhage of rectum and anus documented in this encounter Additional Health Concerns Assessment Noted Time PHQ-9 Depression Total Score: 8 12/10/19 25 10:14 AM EDT documented as of this encounter Care Teams Tool Repairer Bench Relationship Specialty Start Date End Date Norman Ordonez MD [address] [place] [address] PCP - General Internal Medicine 03/05/15 documented as of this encounter
--- OUTSIDE RECORDS SUMMARY | 2025-01-27 17:04 | XMS_ITS | Encounter Summary ---
Author Organization [employer] Address [address] [facility] [address] [place] [address] Care Team Providers Care Surveyor Helper Rod Name Role Phone Norman Ordonez MD Primary Care Provider [phone] Encounter Details Date Type Department Care Team (Latest Contact Info) Description 11/06/2022 Orders Only [facility]S [address] [place] [address] Norman Ordonez MD [address] [place] [address] Hypercholesterolemia (Primary Dx) Social History Tobacco Use [...] Department Care Team ( Contact Info) Description 02/09/2025 11:00 AM EDT Clinical Support [facility] MED [facility] PEDS [address] [place] [address] 03/10/2025 11:30 AM EST Office Visit [facility] [address] [place] [address] Norman Ordonez MD [address] [place] [address] documented as of this encounter Visit Diagnoses Diagnosis Hypercholesterolemia- Primary Pure hypercholesterolemia documented in this encounter Additional Health Concerns Assessment Noted Time PHQ-9 Depression Total Score: 4 05/08/19 23 9:57 AM EST documented as of this encounter Care Teams Surveyor Helper Rod Relationship Specialty Start Date End Date Norman Ordonez MD [address] [place] [address] PCP - General Internal Medicine 03/05/15 documented as of this encounter
--- OUTSIDE RECORDS SUMMARY | 2025-01-27 17:04 | XMS_ITS | Encounter Summary ---
Author Organization [employer] Address [address] [facility] 7 [place] [address] Care Team Providers Care Digging Machine Operator Name Role Phone Norman Ordonez MD Primary Care Provider [phone] Reason for Visit * Reason Onset Date Comments Chart Prep 01/26/2025 Encounter Details Date Type Department Care Team ([facility] st Contact Info) Description 01/26/2025 Telephone [facility] PEDS [address] [place] [address] Norman Ordonez MD [address] [place] [address] Chart Prep Social History Tobacco Use Types Packs/Day Years [...] encounter Miscellaneous Notes * Telephone Encounter - Augusta San [place] - 01/26/2025 7:55 PM EDT Chart Prep Labs: not done Images: not done Referrals: appointment pending Vaccines due: Covid, Flu, Hep A, and RSV Screenings: colonoscopy Overdue care gaps: Disability screen and Tobacco documented in this encounter Plan of Treatment Upcoming Encounters Date Type Department Care Team ([facility] st Contact Info) Description 02/09/2025 11:00 AM EDT Clinical Support [facility] MED [facility] PEDS [address] [place] [address] 03/10/2025 11:30 AM EST Office Visit [facility] MED [facility] [address] [place] [address] Norman Ordonez MD [address] [place] [address] documented as of this encounter Visit Diagnoses Not on filedocumented in this encounter Additional Health Concerns Assessment Noted Time PHQ-9 Depression Total Score: 8 12/10/19 25 10:14 AM EDT documented as of this encounter Care Teams Digging Machine Operator Relationship Specialty Start Date End Date Norman Ordonez MD [address] [place] [address] PCP - General Internal Medicine 03/05/15 documented as of this encounter
--- OUTSIDE RECORDS SUMMARY | 2025-01-27 17:04 | XMS_ITS | Clinical Summary ---
Author Organization [employer] Address [address] [place] [address] [address] [place] [address] Care Team Providers Care Monitor And Storage Bin Tender Name Role Phone Norman Ordonez MD Primary Care Provider [phone]- [phone] Allergies Active Allergy Reactions Criticality Noted Date Comments Lisinopril 05/19/2021 Medications hydrocortisone 2.5 % cream apply by topical route every day to the affected area(s) 015 Active nicotine (Nicoderm, Step 3) 7 MG/24HR patch Place 1 patch on the skin. 022 Active hydroCHLOROthia zide (Microzide) 12.5 MG capsuleIndicati ons:Essential (primary) hypertension TAKE ONE CAPSULE BY MOUTH EVERY DAY 90 capsule 1 024 Active atorvastatin (Lipitor) 40 MG tabletIndicatio ns:Hypercholest erolemia Take 1 tablet (40 mg) by mouth in the morning. 30 tablet 024 Active allopurinol (Zyloprim) 300 MG tabletIndicatio ns:Chronic gouty arthritis TAKE ONE TABLET DAILY 90 tablet 3 024 Active fenofibrate micronized (Lofibra) 134 MG capsuleIndicati ons:Hypercholes terolemia Take 1 capsule (134 mg) by mouth with breakfast. Daily with food 30 capsule 024 Active Omeprazole 20 MG tablet delayed-release Indications:Gas troesophageal reflux disease without esophagitis Take 20 mg by mouth Once per day. 30 tablet 024 Active ibuprofen 600 MG tabletIndicatio ns:History of tooth extraction, unspecified edentulism class Take 1 tablet (600 mg) by mouth every 6 (six) hours if needed for mild pain for up to 20 doses. 20 tablet 024 Active omeprazole (PriLOSEC) [address] capsuleIndicati ons:Gastroesoph ageal reflux disease without esophagitis TAKE ONE CAPSULE BY MOUTH EVERY DAY BEFORE A MEAL 90 capsule 1 024 Active cyanocobalamin (Vitamin B-12) 1000 MCG/ML injectionIndica tions:Deficienc y of other specified B group vitamins INJECT ONE ML INTRAMUSCULARLY EVERY MONTH 1 mL 024 Active cyanocobalamin (Vitamin B-12) 1000 MCG/ML injectionIndica tions:Deficienc y of other specified B group vitamins INJECT ONE ML INTRAMUSCULARLY EVERY MONTH 1 mL 11 024 Active Acetaminophen Extra Strength 500 MG tabletIndicatio ns:History of tooth extraction, unspecified edentulism class TAKE ONE TABLET EVERY 6 HOURS NEEDED FOR PAIN 20 tablet 025 Active atenolol (Tenormin) 50 MG tabletIndicatio ns:Primary hypertension TAKE ONE TABLET ONCE DAILY 90 tablet 1 025 Active indomethacin (Indocin) 50 MG capsuleIndicati ons:Chronic gouty arthritis TAKE ONE CAPSULE THREE TIMES DAILY WITH FOOD 15 capsule 2 025 Active Aspirin Adult Low Strength 81 MG EC tabletIndicatio ns:Primary hypertension TAKE ONE TABLET EVERY DAY 90 tablet 3 025 Active Tirzepatide-Farhan ght Management (Zepbound) 2.5 MG/0.5ML solution auto-injectorIn dications:Class 2 severe obesity due to excess calories with serious comorbidity and body mass index (BMI) of 36.0 to 36.9 in adult Inject 0.5 mL (2.5 mg) under the skin 1 (one) time per week. 2 mL 1 025 Active aspirin 81 MG EC tabletIndicatio ns:Primary hypertension Take 1 tablet (81 mg) by mouth Once per day. daily 30 tablet 024 2024 Discontinued Hospital, Clinic, or Other Facility Administered Medication Ordered Dose Route Frequency Start Date End Date Status cyanocobalamin (Vitamin B-12) injection 1,000 mcgIndications:Cobalamin deficiency 1000 mcg IM Once 01/12/2025 01/12/2025 Ended Active Problems Problem Noted Date Diagnosed Date Dental calculus 12/06/2023 Periodontal disease 12/06/2023 Light cigarette smoker (1-9 cigs/day) 01/16/2022 Obesity with body mass index 30 or greater 05/19 Hypertensive disorder 11/21/2018 Steatosis of liver 11/21/2018 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/12/2017 Chronic gouty arthritis 05/18/2015 Cobalamin deficiency 03/23/2015 Encounters Date Type Department Care Team Description 01/27/2025 11:30 AM EDT Office Visit [facility] [address] [place] [address] Norman Ordonez MD Primary hypertension (Primary Dx); Encounter for immunization; Class 2 severe obesity due to excess calories with serious comorbidity and body mass index (BMI) of 36.0 to 36.9 in adult; Steatosis of liver; Rectal bleed 01/27/2025 Travel 01/26/2025 Telephone [facility] [address] [place] [address] Norman Ordonez MD Chart Prep 01/12/2025 10:00 AM EDT Clinical Support [facility] [address] [place] [address] Cecilia Lopez RN Cobalamin deficiency 01/12/2025 Travel 01/06/2025 Refill [facility] [address] [place] [address] Norman Ordonez MD Primary hypertension 12/31/2024 10:30 AM EDT Office Visit [facility] [address] [place] [address] Shante Snowden, OD Choroidal nevus, left eye (Primary Dx); Early cataracts, bilateral; Myopia of both eyes 12/31/2024 9:30 AM EDT Office Visit [facility] [address] [place] [address] Zion Snowdenn, OD Myopia of both eyes (Primary Dx) 12/31/2024 Travel 12/12/2024 10:00 AM EDT Clinical Support [facility] [address] [place] [address] Cecilia Lopez RN Cobalamin deficiency 12/12/2024 Telephone [facility] [address] [place] [address] Norman Ordonez MD 12/12/2024 Orders Only [facility] [address] [place] [address] Norman Ordonez MD Rectal bleed (Primary Dx) 12/12/2024 Travel 12/11/2024 Results Follow-Up [facility] [address] [place] [address] Subha Franks RN CBC auto differential, Comprehensive Metabolic Panel, Lipid Panel, Standard, Additional followed-up results: 2 12/09/2024 10:15 AM EDT Office Visit [facility] [address] [place] [phone] Norman Ordonez MD Primary hypertension (Primary Dx); Steatosis of liver; Cobalamin deficiency; Screening for colon cancer; Dietary counseling; Exercise counseling; Class 2 severe obesity due to excess calories with serious comorbidity and body mass index (BMI) of 36.0 to 36.9 in adult ([facility]); Encounter for immunization 12/09/2024 Travel 12/08/2024 Telephone [facility] [address] [place] [address] Norman Ordonez MD chart prep 11/10/2024 10:15 AM EDT Clinical Support [facility] [address] [place] [phone] Germaine Buckley, LIYA B12 deficiency 11/10/2024 Travel from Last 3 Months Immunizations Immunization Administration Dates Next Due Hep B, adult 12/09/2024,04/18/2023,03/21/2023 Influenza injectable quadriv alent IIV4 with preservative 01/07/2018,02/28/2016 Influenza injectable quadriv alent preservative free 01/24/2023,01/16/2022,02/11/2021,2016,05/18/2015 Influenza, IIV3, injectable 03/25/2019 Influenza, seasonal, injecta ble, preservative free 01/27/2025,12/26/2023 Pneumococcal Conjugate PCV 20 03/21/2023 Tdap 09/23/2015 [...] Pulse 54 01/27/2025 11:17 AM EDT Temperature 36.5 C (97.7 F) 12/09/2024 9:51 AM EDT Respiratory Rate 20 01/27/2025 11:17 AM EDT Oxygen Saturation 98% 01/27/2025 11:17 AM EDT Inhaled Oxygen Concentration - - Weight 96.6 kg (213 lb) 01/27/2025 11:17 AM EDT Height 162.6 cm (5' 4 ) 01/27/2025 11:17 AM EDT Body Mass Index 36.56 01/27/2025 11:17 AM EDT Plan of Treatment Upcoming Encounters Date Type Department Care Team ([facility] st Contact Info) Description 02/09/2025 11:00 AM EDT Clinical Support [facility] [address] [place] [address] 03/10/2025 11:30 AM EST Office Visit [facility] [address] [place] [address] Norman Ordonez MD [address] [place] [address] Health Maintenance Due Date Last Done Comments CT Colonography 1963 FIT DNA/Cologuard 1963 FIT 1963 FOBT 1963 Sigmoidoscopy 1963 Disability Screening 1963 Hepatitis A Vaccines (1 of 2 - Risk 2-dose series) 1982 Colonoscopy 12/20/2020 12/21/2015 Colorectal Cancer Screening 12/20/2020 RSV Patients and Patients Aged 60 years or older (1 - Risk 60-74 years 1-dose series) 2023 Dental X-Ray: Bitewings 12/06/2024 12/06/2023, 11/09 Dental Oral Exam 12/11/2024 06/12/2024, , 11/09/2022 Dental Prophylaxis 12/11/2024 06/12/2024, 0 12/06/2023, 02/01/2023, Additional history exists DTaP/Tdap/Td Vaccines (2 - Td or Tdap) 09/22/2025 09/23/2015 Alcohol/Substance Use Screening 12/09/2025 12/09/2024 Depression Screening 12/09/2025 12/09/2024, 12/10/19 SDOH Screening 12/09/2025 12/09/2024 Dental X-Ray: Full Mouth 12/14/2025 12/13/2022 COVID-19 Vaccine ( season) 2026 Postponed from 12/15/2024 (Patient Refused) Tobacco Screening 01/27/2026 01/27/2025 Lipid Panel 12/09/2029 12/09/2024, 12/15, 11/06/2022, Additional history exists Zoster Vaccines Completed 03/25/2019, 01/23/2019 HIV Screening Completed 01/17/2022, 01/27/2021 Pneumococcal Vaccine: 50+ Years Completed 03/21/2023 Hepatitis C Screening Completed 12/26/2023 Hepatitis B Vaccines Completed 12/09/2024, 04/18/2023, 03/21/2023 Influenza Vaccine Completed 01/27/2025, , 01/24/2023, Additional history exists HIB Vaccines Aged Out No longer eligi [...] Procedure Name Priority Date/Time Associated Diagnosis Comments FUNDUS PHOTOS - OS - LEFT EYE Routine 12/31/2024 10:30 AM EDT Choroidal nevus, left eye VITAMIN B12/FOLATE, SERUM PANEL Routine 12/09/2024 10:32 AM EDT Cobalamin deficiency TSH W/REFLEX TO FT4 Routine 12/09/2024 1 0:32 AM EDT Primary hypertension LIPID PANEL, STANDARD Routine 12/09/2024 10:32 AM EDT Primary hypertension COMPREHENSIVE METABOLIC PANEL Routine 12/09/2024 10:32 AM EDT Primary hypertension CBC WITH AUTO DIFFERENTIAL Routine 12/09/2024 10:32 AM EDT Primary hypertension PROPHYLAXIS - ADULT Routine 06/12/2024 1 0:00 AM EST Periodontal disease PERIODIC ORAL EVALUATION - ESTABLISHED PATIENT Routine 06/12/2024 10:00 AM EST Periodontal disease HEPATITIS C AB W/REFL TO HCV RNA, QN, PCR Routine 12/26/2023 10:43 AM EDT Primary hypertension Hypercholesterolemia Gastroesophageal reflux disease without esophagitis BITEWINGS - 4 RADIOGRAPHIC IMAGES Routine 12/06/2023 2:30 PM EDT Dental caries PANORAMIC RADIOGRAPHIC IMAGE Routine 12/13/2022 9:00 AM EDT HIV 1/2 ANTIGEN/ANTIBODY, FOURTH GENERATION W/RFL Routine 01/17/2022 8:57 AM EDT HM COLONOSCOPY Routine 12/21/2015 from Last 3 Months or Most Recently Relevant to Health Maintenance Results * Fundus Photos - OS - Left Eye (12/31/2024 10:30 AM EDT) Narrative Shante Snowden, OD - 01/05/2025 1:01 PM EDT Images from the original result were not included. Progression has been stable. Disc findings include normal observations. Macula findings include normal observations. Vessel findings include normal observations. Periphery findings include (7DD flat choroidal nevus without drusen or lipofuscin inferonasal to the ONH). Notes Assessment and Plan Stable large choroidal nevus in the left eye. Will monitor annually. us Shante Snowden OD OPHTH PHOTOGRAPHY Final Resul t * Vitamin B12/Folate, Serum Panel (12/09/2024 10:32 AM EDT) Vitamin B12 466 200 - 900 pg/mL [facility] Comment:NORMAL 200-900 PG/ML INDETERMINATE 160-199 PG/ML DEFICIENT < 160 PG/ML Folate 9.6 > or = 4.0 ng/mL [facility] Comment:Reference Values:> o r = 4.0 ng/mL< 4.0 ng/mL suggests folate deficiency Methotrexate, aminopterin and folinic acid(leucovorin) are chemotherapeutic agents whose molecularstructures are similar to folate; therefore, the Architectfolate assay cannot be used for patients using these drugs. Blood Venous blood specimen / Unknown 12/09/2024 10:32 AM EDT 12/09/2024 1:58 PM EDT us Norman Ordonez MD LAB BLOOD ORDERABLES Final Result Performing Organization Address [facility]/ZIP Co de Phone Number [facility] [address] [place] [phone] * TSH with Reflex to Free T4 (12/09/2024 10:32 AM EDT) TSH reflex Free T4 1.60 0.32 - 4.0 uIU/mL [facility] Blood Venous blood specimen / Unknown 12/09/2024 10:32 AM EDT 12/09/2024 1:58 PM EDT us Norman Ordonez MD LAB BLOOD ORDERABLES Final Result Performing Organization Address [facility]/ZIP Co de Phone Number [facility] [address] [place] [phone] * (ABNORMAL) CBC auto differential (12/09/2024 10:32 AM EDT) White Blood Count 5.8 4.8 - 10.8 X10*3/uL [facility] Red Blood Count 4.39(L) 4.60 - 5.80 X10*6/uL [facility] Hemoglobin 13.5(L) 14.0 - 18.0 g/dl [facility] Hematocrit 40.6(L) 42.0 - 52.0 % [facility] Mean Corpuscular Volume 92.5 80.0 - 98.0 fL [facility] Mean Corpuscular Hemoglobin 30.8 27.0 - 33.0 pg [facility] Mean Corpuscular HGB Conc 33.3 31.0 - 36.0 g/dl [facility] Red Cell Distribution Width 14.2 11.0 - 16.0 % [facility] Platelet Count 233 160 - 400 X10*3/uL [facility] Mean Platelet Volume 11.0 9.4 - 12.4 fL [facility] Neutrophils Percent Auto 53.7 45 - 73 % [facility] Imm Gran Pct Auto 0.2 0.0 - 0.4 % [facility] Lymphocytes Percent Auto 33.1 20 - 40 % [facility] Monocytes Percent Auto 9.2 2 - 11 % [facility] Eosinophils Percent Auto 3.3 0 - 4 % [facility] Basophils Percent Auto 0.5 0 - 2 % [facility] NRBC Pct Auto 0.0 0.0 - 0.2 /100WBC [facility] Neutrophils Absolute Auto 3.1 2.0 - 8.3 x10*3/uL [facility] Imm Gran Abs Auto 0.01 0.00 - 0.03 X10*3/uL [facility] Lymphocytes Absolute Auto 1.9 1.2 - 4.9 X10*3/uL [facility] Monocytes Absolute Auto 0.5 0.1 - 1.2 X10*3/uL [facility] Eosinophils Absolute Auto 0.2 0.0 - 0.4 X10*3/uL [facility] Basophils Absolute Auto 0.0 0.0 - 0.2 X10*3/uL [facility] NRBC Abs Auto 0.000 0.0 - 0.012 X10*3/uL [facility] Blood Venous blood specimen / Unknown 12/09/2024 10:32 AM EDT 12/09/2024 1:58 PM EDT us Norman Ordonez MD LAB BLOOD ORDERABLES Final Result Performing Organization Address City/[facility]/ZIP Co de Phone Number [facility] [address] [place] [phone] * (ABNORMAL) Lipid Panel, Standard (12/09/2024 10:32 AM EDT) Triglycerides 128 <150 mg/dL [facility] Comment:Desirable Triglyceri de: less than 150 mg/dLBorderline High Triglyceride 150-199 mg/dLHigh Triglyceride: 200-499 mg/dLVery High Triglyceride: greater than or equal to 5OO mg/dL Cholesterol 145 <200 mg/dL [facility] Comment:Desirable Cholestero l: less than 200 mg/dLBorderline High Cholesterol: 200-239 mg/dLHigh Cholesterol: greater than 239 mg/dL LDL Cholesterol Calculated 82 <100 mg/dL [facility] Comment:Desirable LDL: less than 100 mg/dLNear Optimal/Above Optimal LDL: 110- 129 mg/dLBorderline High LDL: 130-159 mg/dLHigh LDL: 160-189 mg/dLVery High LDL: greater than or equal to 190 mg/dL HDL Cholesterol 38(L) >40 mg/dL [facility] Comment:Desirable HDL: great er than 40 mg/dL Note: This HDL assay may give artificially low results in patients with liver disease. Blood Venous blood specimen / Unknown 12/09/2024 10:32 AM EDT 12/09/2024 1:58 PM EDT us Norman Ordonez MD LAB BLOOD ORDERABLES Final Result [facility] [address] [place] [phone] * Comprehensive Metabolic Panel (12/09/2024 10:32 AM EDT) Sodium 143 135 - 145 mmol/L [facility] Potassium 4.5 3.3 - 5.1 mmol/L [facility] Chloride 108 96 - 108 mmol/L [facility] Carbon Dioxide 25 22 - 29 mmol/L [facility] Anion Gap 15 12 - 20 [facility] Urea Nitrogen (BUN) 14 9 - 16 mg/dL [facility] Creatinine, Serum 1.20 0.5 - 1.4 mg/dL [facility] Estimated Glomerular Filt Rate >60 [facility] Comment:Chronic Kidney Disea se: Estimated GFR < 60 mL/min/[id number] Kidney Disease: Estimated GFR < 15 mL/min/1.73m2 Glucose 100 60 - 115 mg/dL [facility] Calcium 8.9 8.4 - 10.2 mg/dL [facility] Bilirubin, Total 0.7 0.0 - 1.0 mg/dL [facility] Aspartate Amino Transferase 33 5 - 37 U/L [facility] Alanine Aminotransferase 27 0 - 40 U/L [facility] Total Protein 7.0 6.5 - 8.0 g/dL [facility] Albumin Level 4.5 3.5 - 5.0 g/dL [facility] Alkaline Phosphatase 50 39 - 117 U/L [facility] Blood Venous blood specimen / Unknown 12/09/2024 10:32 AM EDT 12/09/2024 1:58 PM EDT us Norman Ordonez MD LAB BLOOD ORDERABLES Final Result [facility] [address] [place] [phone] * Hepatitis C Antibody with Reflex to HCV, RNA, Quantitative, Real-Time PCR (12/26/2023 10:43 AM EDT) Hepatitis C Antibody Nonreactive Nonreactive [facility] Comment:Antibodies to HCV no t detected; does not exclude early acuteHCV infection. Blood Venous blood specimen / Unknown 12/26/2023 10:43 AM EDT 12/26/2023 1:46 PM EDT Norman Ordonez MD LAB BLOOD ORDERABLES Final Result [facility] [address] [place] [phone] * HIV 1/2 ANTIGEN/ANTIBODY,FOURTH GENERATION W/RFL (01/17/2022 8:57 AM EDT) HIV-1/2 ANTIGEN AND ANTIBODIES, 4TH GENERATION W/ [...] purpose. For additional information please refer to http://education.Stream5.THERAVECTYS/faq/NJM862 (This link is being provided for informational/ educational purposes only.) The performance of this assay has not been clinically validated in patients less than 2 years old. 01/17/2022 8:57 AM EDT us Norman Ordonez MD LAB BLOOD ORDERABLES Final Result [facility] * Hm Colonoscopy (12/21/2015) Colonoscopy Normal Normal Narrative Chyna Barros - 12/21/2015 Recommended 5 year follow up due to tubular adenoma us Historical Provider HEALTH MAINTENANCE Final Result from Last 3 Months or Most Recently Relevant to Health Maintenance Insurance [facility] C3 DENTAL-[facility] MEDICAID STAND ADULT Care Teams Monitor And Storage Bin Tender Relationship Specialty Start Date End Date Norman Ordonez MD [address] [place] [address] MATILDE Seay [id number] PCP - General Internal Medicine 03/05/15
--- OUTSIDE RECORDS SUMMARY | 2025-01-27 17:04 | XMS_ITS | Encounter Summary ---
Author Organization [employer] Address [address] [place] [address] [address] [place] [address] Care Team Providers Care Black Mill Operator Name Role Phone Norman Ordonez MD Primary Care Provider [phone] Reason for Visit * Reason Comments Med Refill Encounter Details Date Type Department Care Team (Late Contact Info) Description 08/01/2022 Refill [facility] [address] [place] [address] Norman Ordonez MD [address] [place] [address] Social History Tobacco Use Types Packs/Day Years [...] Description 02/09/2025 11:00 AM EDT Clinical Support [facility] [address] [place] [address] 03/10/2025 11:30 AM EST Office Visit [facility] [address] [place] [address] Norman Ordonez MD [address] [place] [address] documented as of this encounter Visit Diagnoses Not on filedocumented in this encounter Additional Health Concerns Assessment Noted Time PHQ-9 Depression Total Score: 4 05/08/19 23 9:57 AM EST documented as of this encounter Care Teams Black Mill Operator Relationship Specialty Start Date End Date Norman Ordonez MD [address] [place] [address] PCP - General Internal Medicine 03/05/15 documented as of this encounter
[2025-01-27 18:39] LABS: Iron 111 mcg/dL (45-160); Percent Iron Saturation 31 % (15-50); Total Iron Binding Capacity 358 mcg/dL (228-428); Unsaturated Iron Binding 247 ug/dL
[2025-01-27 18:54] LABS: Ferritin 66 ng/mL (20-250)
[2025-01-27 20:14] LABS: Reticulocytes Absolute 0.092 X10*6/uL (0.026-0.095)
== END 2025-01-27 14:07 | disposition home or self-care (01) ==
LOC: HO.CHCLDS 14:06
PROVIDERS: Visit Provider Internal Medicine
DX: K62.5 Hemorrhage of anus and rectum (principal)
CPT/HCPCS: 36415; 82728; 83540; 85045

== ENCOUNTER 2025-02-25 14:41 | Outpatient (AMB) | payer MEDICAID, SELFPAY ==
--- NOTE | 2025-02-25 15:05 | MHC.OFFVIS ---
Vital Signs 02/25/25 15:07 Height 5 ft 4 in Weight 211 lb 10.3 oz BMI 36.3 BP 148/79 H Blood Pressure Location Lt brachial Position Sitting Pulse 64 Intake Visit Reasons: rectal bleeding Intake Note: Efe presents in the office as a new patient for rectal bleeding. CC: He states that he is not having active bleeding and no concerns today. Motion Designer Required: Yes Allergies No Known Allergies (No Known Allergies*) Allergy (Verified 11/28/23 09:08) HPI Comments Details: 58 y.o M with PMH of tobacco use, colon polyps, gout, who is here for rectal bleeding. Pt was seen in 2023 to discuss surveillance colo. Prev colo in 2015 with rectal adenoma. Pt with no acute GI issues to include abd pain, nausea, vomiting blood in stool. No fam hx of colorectal ca in FDRs. 02/25/25: Here for follow up. Pt did not show for colo booked in Mar 2024. Reports had one time episode of rectal bleeding back in november. This was on wiping, not associated with pain, thinks may have been constipated and aggravated hemorrhoids due to straining. Otherwise no GI sx including abd pain, N,V,D. PFSH Medical History (Updated 02/25/25 @ 15:33 by Silva Woody MD) GERD (gastroesophageal reflux disease) Elevated cholesterol HTN (hypertension) Bilateral renal cysts Nicotine dependence, cigarettes, uncomplicated Tubular adenoma of colon (~2015) Surgical History (Updated 11/28/23 @ 09:13 by Rosalind Gilmore) History of kidney surgery History of esophagogastroduodenoscopy (EGD) History of colonoscopy Social History Patient Tobacco Use Status: Current everyday Tobacco user Tobacco use type: Cigarette Cigarettes Per Day: 3 Years Smoked: (onset 9yo, 1ppd x 48yrs, now 2-3cig/day - 40pyh) Physical Exam Vital Signs: Last Vital Signs Pulse 64 02/25/25 15:07 BP 148/79 H 02/25/25 15:07 BMI result Body Mass Index 36.3 Assessment & Plan Assessment & Plan (1) Bright red rectal bleeding: Code(s): K62.5 - Hemorrhage of anus and rectum Category: Medical (2) Tubular adenoma of colon: Onset Date: ~2015 Comment: (TA on 2016 scope) Code(s): D12.6 - Benign neoplasm of colon, unspecified Category: Medical (3) Nicotine dependence, cigarettes, uncomplicated: Comment: (onset 9yo, 1ppd x 48yrs, now 2-3cig/day - 40pyh) Code(s): F17.210 - Nicotine dependence, cigarettes, uncomplicated Category: Medical Plan Patient overdue for surveillance colonoscopy. Now also with one time episode of rectal bleeding. Likely from hemorrhoids. Advised daily miralax to avoid constipation and straining. Will also rebook colo. Prep instructions reviewed and patient aware of the need to a ride back home. He was also counseled on smoking cessation, or at least to not smoke tobacco or marijuana for 7 days prior to the procedure to mitigate demetris-procedure respiratory complications. Follow-up after colonoscopy Medications: New peg 3350-electrolytes 236-22.74-6.74 -5.86 gram (Golytely) as per split prep instructions, until fecal effluent is clear 240 mL PO Q10M 4,000 mL 0RF colonoscopy polyethylene glycol 3350 (Miralax) 17 grams PO DAILY 238 grams 0RF Coding Level of Care Code Est Pt Level 4 (24407) Diagnoses Bright red rectal bleeding K62.5 Tubular adenoma of colon D12.6 Nicotine dependence, cigarettes, uncomplicated F17.210
[2025-02-25 15:07] VITALS: BP 148/79; PULSE 64; BMI 36.3
--- OUTSIDE RECORDS SUMMARY | 2025-02-25 18:11 | XMS_ITS | Encounter Summary ---
Author Organization [employer] Address [address] [place] [address] 7 [place] [address] Care Team Providers Care Regional Economic Liaison Name Role Phone Norman Ordonez MD Primary Care Provider [phone] Encounter Details Date Type Department Care Team ([facility] st Contact Info) Description 01/30/2025 Orders Only [facility] CHC MED & PEDS [address] [place], [place] [phone] Norman Ordonez MD [address] [place] [address] Normocytic anemia (Primary Dx) Social History Tobacco Use Types [...] Care Team (Late st Contact Info) Description 03/10/2025 11:30 AM EST Office Visit [facility] CHC MED & PEDS [address] [place] [address] Norman Ordonez MD 505 [place] [address] documented as of this encounter Visit Diagnoses Diagnosis Normocytic anemia- Primary Unspecified anemia documented in this encounter Additional Health Concerns Assessment Noted Time PHQ-9 Depression Total Score: 8 12/10/19 10:14 AM EDT documented as of this encounter Care Teams Regional Economic Liaison Relationship Specialty Start Date End Date Norman Ordonez MD [address] [place] [address] PCP - General Internal Medicine 03/05/15 documented as of this encounter
--- OUTSIDE RECORDS SUMMARY | 2025-02-25 18:11 | XMS_ITS | Encounter Summary ---
Author Organization [facility] Address [address] [place] [address] Care Team Providers Care Odd Piece Checker Name Role Phone Norman Ordonez MD Primary Care Provider [phone]- [phone] Encounter Details Date Type Department Care Team (Late st Contact Info) Description 03/13/2022 Abstract [facility] MEDICINE [address] [place] [address] ProviderBryce MD Social History Tobacco Use Types [...] Description 03/10/2025 11:30 AM EST Office Visit [facility] CHC MED & PEDS [address] [place] [address] Norman Ordonez MD 505 [place] [address] documented as of this encounter Visit Diagnoses Not on filedocumented in this encounter Care Teams Odd Piece Checker Relationship Specialty Start Date End Date Norman Ordonez MD [address] [place] [address] PCP - General Internal Medicine 03/05/15 documented as of this encounter
--- OUTSIDE RECORDS SUMMARY | 2025-02-25 18:11 | XMS_ITS | Encounter Summary ---
Author Organization [employer] Address [address] [place] [address] 7 [place] [address] Care Team Providers Care Field Talent Qualification Specialist Name Role Phone Norman Ordonez MD Primary Care Provider [phone]- [phone] Encounter Details Date Type Department Care Team (Latest Contact Info) Description 11/28/2018 Abstract [facility] CONVERSIONS Dental, Provider, DDS Social History Tobacco [...] Description 03/10/2025 11:30 AM EST Office Visit [facility] CHC MED & PEDS 505 [place] [address] Norman Ordonez MD 505 [place] [address] documented as of this encounter Visit Diagnoses Not on filedocumented in this encounter Care Teams Field Talent Qualification Specialist Relationship Specialty Start Date End Date Norman Ordonez MD 505 [place] [address] PCP - General Internal Medicine 03/05/15 documented as of this encounter
--- OUTSIDE RECORDS SUMMARY | 2025-02-25 18:11 | XMS_ITS | Encounter Summary ---
Author Organization [employer] Address [address] [place] [address] 7t [place] [address] Care Team Providers Care Craps Manager Name Role Phone Norman Ordonez MD Primary Care Provider [phone] Reason for Visit * Reason Comments Med Refill Encounter Details Date Type Department Care Team ([facility] Contact Info) Description 03/05/2024 Refill [facility] CHC ADULT DENTAL [address] [place] [address] Sterling Kelsey, DMD 505 [place] [address] History of tooth extraction, unspecified edentulism class [...] Description 03/10/2025 11:30 AM EST Office Visit [facility] MED & PEDS [address] [place] [address] Norman Ordonez MD 505 [place] [address] documented as of this encounter Visit Diagnoses Diagnosis History of tooth extraction, unspecified edentulism class documented in this encounter Additional Health Concerns Assessment Noted Time PHQ-9 Depression Total Score: 12 023 10:38 AM EST documented as of this encounter Care Teams Craps Manager Relationship Specialty Start Date End Date Norman Ordonez MD 505 [place] [address] PCP - General Internal Medicine 03/05/15 documented as of this encounter
--- OUTSIDE RECORDS SUMMARY | 2025-02-25 18:11 | XMS_ITS | Encounter Summary ---
Author Organization [employer] Address [address] [facility] 7t [place] [address] Care Team Providers Care Teen Counselor Name Role Phone Norman Ordonez MD Primary Care Provider [phone]- [phone] Reason for Visit * Reason Comments Med Refill Encounter Details Date Type Department Care Team ([facility] Contact Info) Description 05/04/2022 Refill [facility] MEDICINE [address] [place] [address] Norman Ordonez MD [address] 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
--- OUTSIDE RECORDS SUMMARY | 2025-02-25 18:11 | XMS_ITS | Encounter Summary ---
Author Organization [employer] Address [address] [place] [address] 7 [place] [address] Care Team Providers Care Energy Trader Name Role Phone Norman Ordonez MD Primary Care Provider [phone]- [phone] Encounter Details Date Type Department Care Team (Latest Contact Info) Description 05/30/2018 Abstract [facility] CONVERSIONS Dental, Provider, DDS Social [...] Description 03/10/2025 11:30 AM EST Office Visit [facility] CHC MED & PEDS 505 [place] [address] Norman Ordonez MD 505 [place] [address] documented as of this encounter Visit Diagnoses Not on filedocumented in this encounter Care Teams Energy Trader Relationship Specialty Start Date End Date Norman Ordonez MD [address] [place] [address] PCP - General Internal Medicine 03/05/15 documented as of this encounter
--- OUTSIDE RECORDS SUMMARY | 2025-02-25 18:11 | XMS_ITS | Encounter Summary ---
Author Organization [employer] Address [address] [place] [address] 7t [place] [address] Care Team Providers Care Chief Order Dispatcher Name Role Phone Norman Ordonez MD Primary Care Provider [phone] Reason for Visit * Reason Comments Med Refill Encounter Details Date Type Department [facility] Description 04/18/2024 Refill [facility] CHC ADULT DENTAL 505 [place] [address] Sterling Kelsey, DMD 505 [place] [address] History of tooth extraction, unspecified edentulism class [...] Description 03/10/2025 11:30 AM EST Office Visit [facility] MED & PEDS [address] [place] [address] Norman Ordonez MD 505 [place] [address] documented as of this encounter Visit Diagnoses Diagnosis History of tooth extraction, unspecified edentulism class documented in this encounter Additional Health Concerns Assessment Noted Time PHQ-9 Depression Total Score: 12 023 10:38 AM EST documented as of this encounter Care Teams Chief Order Dispatcher Relationship Specialty Start Date End Date Norman Ordonez MD [address] [place] [address] PCP - General Internal Medicine 03/05/15 documented as of this encounter
--- OUTSIDE RECORDS SUMMARY | 2025-02-25 18:11 | XMS_ITS | Encounter Summary ---
Author Organization [employer] Address [address] [place] [address] [facility] [place] [address] Care Team Providers Care Production Cloth Cutter Name Role Phone Norman Ordonez MD Primary Care Provider [phone] Encounter Details Date Type Department Care Team (Latest Contact Info) Description 07/19/2021 Abstract [facility] CONVERSIONS Dental, Provider, DDS Social History [...] Description 03/10/2025 11:30 AM EST Office Visit [facility] CHC MED & PEDS [address] [place] [address] Norman Ordonez MD 505 [place] [address] documented as of this encounter Visit Diagnoses Not on filedocumented in this encounter Care Teams Production Cloth Cutter Relationship Specialty Start Date End Date Norman Ordonez MD 505 [place] [address] PCP - General Internal Medicine 03/05/15 documented as of this encounter
--- OUTSIDE RECORDS SUMMARY | 2025-02-25 18:11 | XMS_ITS | Encounter Summary ---
Author Organization [employer] Address [address] [place] [address] [facility] [place] [address] Care Team Providers Care Lead Systems Developer Name Role Phone Norman Ordonez MD Primary Care Provider [phone]- [phone] Encounter Details Date Type Department Care Team (Late Contact Info) Description 03/22/2022 Orders Only [facility] MEDICINE [address] [place], [place] [phone] Norman Ordonez MD [address] [place], [place] [phone] Vitamin B12 deficiency (Primary Dx); Primary hypertension [...] Description 03/10/2025 11:30 AM EST Office Visit [facility] CHC MED & PEDS 505 [place], [place] [phone] Norman Ordonez MD [address] [place], [place] [phone] documented as of this encounter Visit Diagnoses Diagnosis Vitamin B12 deficiency- Primary Other B-complex deficiencies Primary hypertension Unspecified essential hypertension documented in this encounter Care Teams Lead Systems Developer Relationship Specialty Start Date End Date Norman Ordonez MD [address] [place] [address] PCP - General Internal Medicine 03/05/15 documented as of this encounter
--- OUTSIDE RECORDS SUMMARY | 2025-02-25 18:11 | XMS_ITS | Encounter Summary ---
Author Organization [employer] Address [address] [place] [address] 7t [place] [address] Care Team Providers Care Automatic Coil Machine Operator Name Role Phone Norman Ordonez MD Primary Care Provider [phone] Reason for Visit * Reason Comments Med Refill Encounter Details Date Type Department Care Team ([facility] Contact Info) Description 02/01/2024 Refill [facility] CHC ADULT DENTAL [address] [place] [address] Sterling Kelsey, DMD [address] [place] [address] History of tooth extraction, unspecified edentulism class [...] Description 03/10/2025 11:30 AM EST Office Visit [facility] MED & PEDS [address] [place] [address] Norman Ordonez MD 505 [place] [address] documented as of this encounter Visit Diagnoses Diagnosis History of tooth extraction, unspecified edentulism class documented in this encounter Additional Health Concerns Assessment Noted Time PHQ-9 Depression Total Score: 12 023 10:38 AM EST documented as of this encounter Care Teams Automatic Coil Machine Operator Relationship Specialty Start Date End Date Norman Ordonez MD [address] [place] [address] PCP - General Internal Medicine 03/05/15 documented as of this encounter
--- OUTSIDE RECORDS SUMMARY | 2025-02-25 18:11 | XMS_ITS | Encounter Summary ---
Author Organization [employer] Address [address] [place] [address] 7 [place] [address] Care Team Providers Care Demand Planner Name Role Phone Norman Ordonez MD Primary Care Provider [phone] Encounter Details Date Type Department Care Team (Latest Contact Info) Description 02/02/2025 Results Follow-Up [facility] CHC MED & PEDS [address] [place] [address] Norman Ordonez MD [address] [place] [address] Iron And Total Iron Binding Capacity, Ferritin, Reticulocyte Count Social History Tobacco Use Types Packs/Day Years [...] 03/10/2025 11:30 AM EST Office Visit [facility] CHC MED & PEDS [address] [place] [address] Norman Ordonez MD [address] [place] [address] documented as of this encounter Visit Diagnoses Not on filedocumented in this encounter Additional Health Concerns Assessment Noted Time PHQ-9 Depression Total Score: 8 12/10/19 10:14 AM EDT documented as of this encounter Care Teams Demand Planner Relationship Specialty Start Date End Date Norman Ordonez MD [address] [place] [address] PCP - General Internal Medicine 03/05/15 documented as of this encounter
--- OUTSIDE RECORDS SUMMARY | 2025-02-25 18:11 | XMS_ITS | Encounter Summary ---
Author Organization [employer] Address [address] [place] [address] 7 [place] [address] Care Team Providers Care Manager Environmental Name Role Phone Norman Ordonez MD Primary Care Provider [phone]- [phone] Reason for Visit * Reason Comments Med Refill Encounter Details Date Type Department Care Team (Late Contact Info) Description 08/01/[address] [facility] CHC MED & PEDS [address] [place] [address] Norman Ordonez MD [address] [place] [address] Social History Tobacco Use Types Packs/Day Years [...] Description 03/10/2025 11:30 AM EST Office Visit [facility] MED & PEDS [address] [place] [address] Norman Ordonez MD [address] [place] [address] documented as of this encounter Visit Diagnoses Not on filedocumented in this encounter Additional Health Concerns Assessment Noted Time PHQ-9 Depression Total Score: 4 05/08/19 9:57 AM EST documented as of this encounter Care Teams Manager Environmental Relationship Specialty Start Date End Date Norman Ordonez MD [address] [place] [address] PCP - General Internal Medicine 03/05/15 documented as of this encounter
--- OUTSIDE RECORDS SUMMARY | 2025-02-25 18:11 | XMS_ITS | Encounter Summary ---
Author Organization [employer] Address [address] [facility] 7t [place] [address] Care Team Providers Care Blackjack Supervisor Name Role Phone Norman Ordonez MD Primary Care Provider +1 [phone] Encounter Details Date Type Department Care Team (Late st Contact Info) Description 02/08/2023 Abstract [facility] MEDICINE [address] [place] [address] Norman Ordonez MD [address] [facility] [place] [address] Social History Tobacco Use Types Packs/Day Years [...] Description 03/10/2025 11:30 AM EST Office Visit [facility] CHC MED & PEDS 505 [place], [place] [phone] Norman Ordonez MD 505 [place] [address] documented as of this encounter Procedures Procedure Name Priority Date/Time Associated Diagnosis Comments COLONOSCOPY Routine 12/21/2015 documented in this encounter Results * Hm Colonoscopy (12/21/2015) Colonoscopy Normal Normal Narrative Chyna Barros - 12/21/2015 Recommended 5 year follow up due to tubular adenoma Historical Provider HEALTH MAINTENANCE Final Result documented in this encounter Visit Diagnoses Not on filedocumented in this encounter Additional Health Concerns Assessment Noted Time PHQ-9 Depression Total Score: 4 05/08/19 23 9:57 AM EST documented as of this encounter Care Teams Blackjack Supervisor Relationship Specialty Start Date End Date Norman Ordonez MD [address] [place] [address] PCP - General Internal Medicine 03/05/15 documented as of this encounter
--- OUTSIDE RECORDS SUMMARY | 2025-02-25 18:11 | XMS_ITS | Clinical Summary ---
Author Organization [employer] Address [address] [place] [address] 7[address] [place] [address] Care Team Providers Care Hull Sorter Name Role Phone Norman Ordonez MD Primary Care Provider [phone]- [phone] Allergies Active Allergy Reactions Criticality Noted Date [...] TABLET DAILY 90 tablet 3 024 Active Omeprazole 20 MG tablet delayed-release Indications:Gas troesophageal reflux disease without esophagitis Take 20 mg by mouth Once per day. 30 tablet 024 Active ibuprofen 600 MG tabletIndicatio ns:History of tooth extraction, unspecified edentulism class Take 1 tablet (600 mg) by mouth every 6 (six) hours if needed for mild pain for up to 20 doses. 20 tablet 024 Active cyanocobalamin (Vitamin B-12) 1000 MCG/ML injectionIndica tions:Deficienc y of other specified B group vitamins INJECT ONE ML INTRAMUSCULARLY EVERY MONTH 1 mL 11 024 Active cyanocobalamin (Vitamin B-12) 1000 MCG/ML injectionIndica tions:Deficienc y of other specified B group vitamins INJECT ONE ML INTRAMUSCULARLY EVERY MONTH 1 mL 024 Active Acetaminophen Extra Strength 500 MG tabletIndicatio ns:History of tooth extraction, unspecified edentulism class TAKE ONE TABLET EVERY 6 HOURS NEEDED FOR PAIN 20 tablet 025 Active indomethacin (Indocin) 50 MG capsuleIndicati [...] per week. 2 mL 1 025 Active ferrous sulfate (Fe Tabs) 325 (65 Fe) MG EC tabletIndicatio ns:Normocytic anemia Do not crush, chew, or split. One tab every other day. 15 tablet 2 025 Active fenofibrate micronized (Lofibra) 134 MG capsuleIndicati ons:Hypercholes terolemia TAKE ONE CAPSULE EVERY MORNING WITH BREAKFAST 90 capsule 3 025 Active omeprazole (PriLOSEC) [address] capsuleIndicati ons:Gastroesoph ageal reflux disease without esophagitis TAKE ONE CAPSULE BY MOUTH EVERY DAY BEFORE A MEAL 90 capsule 1 025 Active atenolol (Tenormin) 50 MG tabletIndicatio ns:Primary hypertension TAKE ONE TABLET BY MOUTH EVERY DAY 90 tablet 1 025 Active fenofibrate micronized (Lofibra) 134 MG capsuleIndicati ons:Hypercholes terolemia Take 1 capsule (134 mg) by mouth with breakfast. Daily with food 30 capsule 11 024 2024 Discontinued omeprazole (PriLOSEC) [address] Hood ons:Gastroesoph ageal reflux disease without esophagitis TAKE ONE CAPSULE BY MOUTH EVERY DAY BEFORE A MEAL 90 capsule 1 024 2024 Discontinued atenolol (Tenormin) 50 MG tabletIndicatio ns:Primary hypertension TAKE ONE TABLET ONCE DAILY 90 tablet 1 025 2024 Discontinued Hospital, Clinic, or Other Facility Administered Medication Ordered Dose Route Frequency Start Date End Date Status cyanocobalamin (Vitamin B-12) injection 1,000 mcgIndications:Cobalamin deficiency 1000 mcg IM Once 02/09/2025 02/09/2025 Ended Active Problems Problem Noted Date Diagnosed Date Dental calculus 12/06/2023 Periodontal disease 12/06/2023 Light cigarette smoker (1-9 cigs/day) 01/16/2022 Obesity with body mass index 30 or greater 05/19 Hypertensive disorder 11/21/2018 Steatosis of liver 11/21/2018 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/12/2017 Chronic gouty arthritis 05/18/2015 Cobalamin deficiency 03/23/2015 Encounters Date Type Department Care Team Description 02/19/2025 Telephone [facility] [address] [place] [address] Norman Ordonez MD Prior Authorization 02/13/2025 Refill [facility] [address] [place] [address] Norman Ordonez MD Gastroesophageal reflux disease without esophagitis; Primary hypertension 02/09/2025 11:00 AM EDT Clinical Support [facility] [address] [place] [address] Cecilia Lopez RN Cobalamin deficiency 02/09/2025 Travel 02/05/2025 Refill [facility] [address] [place] [address] Norman Erickson MD Hypercholesterolemia 02/02/2025 Results Follow-Up [facility] [address] [place] [address] Norman Ordonez MD Iron And Total Iron Binding Capacity, Ferritin, Reticulocyte Count 01/30/2025 11:00 AM EDT Office Visit [facility] [address] [place] [address] Zion Snowdenn, OD Myopia of both eyes (Primary Dx) 01/30/2025 Orders Only [facility] [address] [place] [address] Norman Ordonez MD Normocytic anemia (Primary Dx) 01/27/2025 11:30 AM EDT Office Visit [facility] [address] [place] [address] Norman Ordonez MD Primary hypertension (Primary Dx); Encounter for immunization; Class 2 severe obesity due to excess calories with serious comorbidity and body mass index (BMI) of 36.0 to 36.9 in adult; Steatosis of liver; Rectal bleed 01/27/2025 Travel 01/26/2025 Telephone [facility] [address] [place] [address] Norman Ordonez MD Chart Prep 01/12/2025 10:00 AM EDT Clinical Support [facility] [address] [place] [address] Cecilia Lopez RN Cobalamin deficiency 01/12/2025 Travel 01/06/2025 Refill [facility] [address] [place] [address] Norman Ordonez MD Primary hypertension 12/31/2024 10:30 AM EDT Office Visit [facility] [address] [place] [address] Zion Snowdenn, OD Choroidal nevus, left eye (Primary Dx); Early cataracts, bilateral; Myopia of both eyes 12/31/2024 9:30 AM EDT Office Visit [facility] [address] [place] [address] Zion Snowdenn, OD Myopia of both eyes (Primary Dx) 12/31/2024 Travel 12/12/2024 10:00 AM EDT Clinical Support [facility] [address] [place] [address] Cecilia Lopez, LIYA Cobalamin deficiency 12/12/2024 Telephone [facility] [address] [place] [address] Norman Ordonez MD 12/12/2024 Orders Only [facility] [address] [place] [address] Norman Ordonez MD Rectal bleed (Primary Dx) 12/12/2024 Travel 12/11/2024 Results Follow-Up [facility] [address] [place] [address] Subha Franks RN CBC auto differential, Comprehensive Metabolic Panel, Lipid Panel, Standard, Additional followed-up results: 2 12/09/2024 10:15 AM EDT Office Visit [facility] [address] [place] [address] Norman Ordonez MD Primary hypertension (Primary Dx); Steatosis of liver; Cobalamin deficiency; Screening for colon cancer; Dietary counseling; Exercise counseling; Class 2 severe obesity due to excess calories with serious comorbidity and body mass index (BMI) of 36.0 to 36.9 in adult ([facility]); Encounter for immunization 12/09/2024 Travel 12/08/2024 Telephone [facility] [address] [place] [address] Norman Ordonez MD chart prep from Last 3 Months Immunizations Immunization Administration [...] Upcoming Encounters Date Type Department Care Team ([facility] st Contact Info) Description 03/10/2025 11:30 AM EST Office Visit [facility] [address] [place] [address] Norman Ordonez MD [address] [place] [address] Health Maintenance Due Date Last Done Comments [...] Procedure Name Priority Date/Time Associated Diagnosis Comments RETICULOCYTE COUNT Routine 01/27/2025 2: 07 PM EDT Rectal bleed FERRITIN Routine 01/27/2025 2:07 PM EDT Rectal bleed IRON AND TOTAL IRON BINDING CAPACITY Routine 01/27/2025 2:07 PM EDT Rectal bleed FUNDUS PHOTOS - OS - LEFT EYE [...] Recently Relevant to Health Maintenance Results * Iron And Total Iron Binding Capacity (01/27/2025 2:07 PM EDT) Iron 111 45 - 160 mcg/dL [facility] Total Iron Binding Capacity 358 228 - 428 mcg/dL [facility] Percent Iron Saturation 31 15 - 50 % [facility] Unsaturated Iron Binding 247 ug/dL [facility] Blood Venous blood specimen / Unknown 01/27/2025 2:07 PM EDT 01/27/2025 6:05 PM EDT Norman Ordonez MD LAB BLOOD ORDERABLES Final Result Performing Organization Address [facility]/ZIP Co de Phone Number [facility] [address] [place] [phone] * (ABNORMAL) Reticulocyte Count (01/27/2025 2:07 PM EDT) Reticulocytes Absolute 0.092 0.026 - 0.095 X10*6/uL [facility] Immature Retic Fraction 13.2 2.3 - 13.4 % [facility] Retic HGB Equivalent 34.6 30.0 - 35.0 pg [facility] Reticulocyte Percent 2.1(H) 0.5 - 1.8 % [facility] Blood Venous blood specimen / Unknown 01/27/2025 2:07 PM EDT 01/27/2025 6:05 PM EDT us Noramn Ordonez MD LAB BLOOD ORDERABLES Final Result Performing Organization Address [facility] Co de Phone Number [facility] [address] [place] [phone] * Ferritin (01/27/2025 2:07 PM EDT) Ferritin 66 20 - 250 ng/mL [facility] Blood Venous blood specimen / Unknown 01/27/2025 2:07 PM EDT 01/27/2025 6:05 PM EDT Norman Ordonez MD LAB BLOOD ORDERABLES Final Result Performing Organization Address [facility] Co de Phone Number [facility] [address] [place] [phone] * Fundus Photos - OS - Left [...] in the left eye. Will monitor annually. Shante Snowden OD OPHTH PHOTOGRAPHY Final Resul t * Vitamin B12/Folate, Serum Panel (12/09/2024 10:32 AM EDT) Vitamin B12 466 200 - 900 pg/mL [facility] Comment:NORMAL 200-900 PG/M L INDETERMINATE 160-199 PG/ML DEFICIENT < 160 PG/ML Folate 9.6 > or = 4.0 ng/mL [facility] Comment:Reference Values:> o r = 4.0 ng/mL< 4.0 ng/mL suggests folate deficiency Methotrexate, aminopterin and folinic acid(leucovorin) are chemotherapeutic agents whose molecularstructures are similar to folate; therefore, the Architectfolate assay cannot be used for patients using these drugs. Blood Venous blood specimen / Unknown 12/09/2024 10:32 AM EDT 12/09/2024 1:58 PM EDT Norman Ordonez MD LAB BLOOD ORDERABLES Final Result [facility] [address] [place] [phone] [phone] * TSH with Reflex to Free T4 (12/09/2024 10:32 AM EDT) TSH reflex Free T4 1.60 0.32 - 4.0 uIU/mL [facility] Blood Venous blood specimen / Unknown 12/09/2024 10:32 AM EDT 12/09/2024 1:58 PM EDT us Norman Ordonez MD LAB BLOOD ORDERABLES Final Result [facility] [address] [place] [address] [phone] * (ABNORMAL) CBC auto differential (12/09/2024 10:32 AM EDT) White Blood Count 5.8 4.8 - 10.8 X10*3/uL [facility] Red Blood Count 4.39(L) 4.60 - 5.80 X10*6/uL [facility] Hemoglobin 13.5(L) 14.0 - 18.0 g/dl [facility] Hematocrit 40.6(L) 42.0 - 52.0 % [facility] Mean Corpuscular Volume 92.5 80.0 - 98.0 fL [facility] Mean Corpuscular Hemoglobin 30.8 27.0 - 33.0 pg [facility] Mean Corpuscular HGB Conc 33.3 31.0 - 36.0 g/dl [facility] Red Cell Distribution Width 14.2 11.0 - 16.0 % [facility] Platelet Count 233 160 - 400 X10*3/uL [facility] Mean Platelet Volume 11.0 9.4 - 12.4 fL [facility] Neutrophils Percent Auto 53.7 45 - 73 % [facility] Imm Gran Pct Auto 0.2 0.0 - 0.4 % [facility] Lymphocytes Percent Auto 33.1 20 - 40 % [facility] Monocytes Percent Auto 9.2 2 - 11 % [facility] Eosinophils Percent Auto 3.3 0 - 4 % [facility] Basophils Percent Auto 0.5 0 - 2 % [facility] NRBC Pct Auto 0.0 0.0 - 0.2 /100WBC [facility] Neutrophils Absolute Auto 3.1 2.0 - 8.3 x10*3/uL [facility] Imm Gran Abs Auto 0.01 0.00 - 0.03 X10*3/uL [facility] Lymphocytes Absolute Auto 1.9 1.2 - 4.9 X10*3/uL [facility] Monocytes Absolute Auto 0.5 0.1 - 1.2 X10*3/uL [facility] Eosinophils Absolute Auto 0.2 0.0 - 0.4 X10*3/uL [facility] Basophils Absolute Auto 0.0 0.0 - 0.2 X10*3/uL [facility] NRBC Abs Auto 0.000 0.0 - 0.012 X10*3/uL [facility] Blood Venous blood specimen / Unknown 12/09/2024 10:32 AM EDT 12/09/2024 1:58 PM EDT us Norman Ordonez MD LAB BLOOD ORDERABLES Final Result [facility] [address] [place] [phone] [phone] * (ABNORMAL) Lipid Panel, Standard (12/09/2024 10:32 AM EDT) Triglycerides 128 <150 mg/dL [facility] Comment:Desirable Triglyceri de: less than 150 mg/dLBorderline High Triglyceride 150-199 mg/dLHigh Triglyceride: 200-499 mg/dLVery High Triglyceride: greater than or equal to 5OO mg/dL Cholesterol 145 <200 mg/dL [facility] Comment:Desirable Cholestero l: less than 200 mg/dLBorderline High Cholesterol: 200-239 mg/dLHigh Cholesterol: greater than 239 mg/dL LDL Cholesterol Calculated 82 <100 mg/dL [facility] Comment:Desirable LDL: less than 100 mg/dLNear Optimal/Above Optimal LDL: 110- 129 mg/dLBorderline High LDL: 130-159 mg/dLHigh LDL: 160-189 mg/dLVery High LDL: greater than or equal to 190 mg/dL HDL Cholesterol 38(L) >40 mg/dL [facility] Comment:Desirable HDL: great er than 40 mg/dL Note: This HDL assay may give artificially low results in patients with liver disease. Blood Venous blood specimen / Unknown 12/09/2024 10:32 AM EDT 12/09/2024 1:58 PM EDT us Norman Ordonez MD LAB BLOOD ORDERABLES Final Result [facility] [address] [place] [address] [phone] * Comprehensive Metabolic Panel (12/09/2024 10:32 AM EDT) Sodium 143 135 - 145 mmol/L [facility] Potassium 4.5 3.3 - 5.1 mmol/L [facility] Chloride 108 96 - 108 mmol/L [facility] Carbon Dioxide 25 22 - 29 mmol/L [facility] Anion Gap 15 12 - 20 [facility] Urea Nitrogen (BUN) 14 9 - 16 mg/dL [facility] Creatinine, Serum 1.20 0.5 - 1.4 mg/dL [facility] Estimated Glomerular Filt Rate >60 [facility] Comment:Chronic Kidney Disea se: Estimated GFR < 60 mL/min/[id number] Kidney Disease: Estimated GFR < 15 mL/min/1.73m2 Glucose 100 60 - 115 mg/dL [facility] Calcium 8.9 8.4 - 10.2 mg/dL [facility] Bilirubin, Total 0.7 0.0 - 1.0 mg/dL [facility] Aspartate Amino Transferase 33 5 - 37 U/L [facility] Alanine Aminotransferase 27 0 - 40 U/L [facility] Total Protein 7.0 6.5 - 8.0 g/dL [facility] Albumin Level 4.5 3.5 - 5.0 g/dL [facility] Alkaline Phosphatase 50 39 - 117 U/L [facility] Blood Venous blood specimen / Unknown 12/09/2024 10:32 AM EDT 12/09/2024 1:58 PM EDT us Norman Ordonez MD LAB BLOOD ORDERABLES Final Result [facility] [address] [place] [phone] [phone] * Hepatitis C Antibody with Reflex to HCV, RNA, Quantitative, Real-Time PCR (12/26/2023 10:43 AM EDT) Hepatitis C Antibody Nonreactive Nonreactive [facility] Comment:Antibodies to HCV no t detected; does not exclude early acuteHCV infection. Blood Venous blood specimen / Unknown 12/26/2023 10:43 AM EDT 12/26/2023 1:46 PM EDT us Norman Ordonez MD LAB BLOOD ORDERABLES Final Result Performing Organization Address [facility]/ZIP Co de Phone Number [facility] [address] [place] [phone] [phone] * HIV 1/2 ANTIGEN/ANTIBODY,FOURTH GENERATION W/RFL [...] purpose. For additional information please refer to http://education.[employer]/faq/JAK902 (This link is being provided for informational/ [...] Most Recently Relevant to Health Maintenance Insurance [facility] C3 DENTAL-[facility] MEDICAID STAND ADULT Care Teams Hull Sorter Relationship Specialty Start Date End Date Norman Ordonez MD [address] [place] [address] MATILDE Seay [address] PCP - General Internal Medicine 03/05/15
--- OUTSIDE RECORDS SUMMARY | 2025-02-25 18:11 | XMS_ITS | Encounter Summary ---
Author Organization [employer] Address [address] [place] [address] [address] [address] Care Team Providers Care Capsule Maker Name Role Phone Norman Ordonez MD Primary Care Provider [phone]- [phone] Reason for Referral * Consultation (Urgent) - Authorized Specialty Diagnoses / Procedures Referred By Contvalentin t Referred To Contact Gastroenterology Diagnoses Rectal bleed Norman Ordonez MD [address] [place] [address] Phone: tel: fax: Saige Pillai MD [address] [place] [phone] Phone: tel: fax: Referral ID Status Reason Start Date Expiration Date Visits Requested Visits Authorized [id number] Authorized Specialty Services Required 12/12/2024 12/12/2025 1 1 Encounter Details Date Type Department Care Team ([facility] st Contact Info) Description 12/12/2024 Orders Only [facility] [address] [place] [address] Norman Ordonez MD [address] [place], [place] [phone] Rectal bleed (Primary Dx) Social History Tobacco [...] 11:30 AM EST Office Visit [facility] [address] [place] [address] Norman Ordonez MD [address] [place] [phone] Scheduled Referrals Name Type Priority Associated Diagnoses Order Schedule Referral to Gastroenterology Outpatient Referral Urgent Rectal bleed Expected: 12/12/2024 (Approximate), Expires: 12/12/2025 documented as of this encounter Procedures Procedure Name Priority Date/Time Associated Diagnosis Comments IRON AND TOTAL IRON BINDING CAPACITY Routine 01/27/2025 2:07 PM EDT Rectal bleed RETICULOCYTE COUNT Routine 01/27/2025 2: 07 PM EDT Rectal bleed FERRITIN Routine 01/27/2025 2:07 PM EDT Rectal bleed documented in this encounter Results * (ABNORMAL) Reticulocyte Count (01/27/2025 2:07 PM EDT) Reticulocytes Absolute 0.092 0.026 - 0.095 X10*6/uL [facility] Immature Retic Fraction 13.2 2.3 - 13.4 % [facility] Retic HGB Equivalent 34.6 30.0 - 35.0 pg [facility] Reticulocyte Percent 2.1(H) 0.5 - 1.8 % [facility] Blood Venous blood specimen / Unknown 01/27/2025 2:07 PM EDT 01/27/2025 6:05 PM EDT us Norman Ordonez MD LAB BLOOD ORDERABLES Final Result [facility] [address] [place] [address] [phone] * Ferritin (01/27/2025 2:07 PM EDT) Ferritin 66 20 - 250 ng/mL [facility] Blood Venous blood specimen / Unknown 01/27/2025 2:07 PM EDT 01/27/2025 6:05 PM EDT us Norman Ordonez MD LAB BLOOD ORDERABLES Final Result Performing Organization Address [facility] de Phone Number [facility] [address] [place] [phone] * Iron And Total Iron Binding Capacity (01/27/2025 2:07 PM EDT) Iron 111 45 - 160 mcg/dL [facility] Total Iron Binding Capacity 358 228 - 428 mcg/dL [facility] Percent Iron Saturation 31 15 - 50 % [facility] Unsaturated Iron Binding 247 ug/dL [facility] Blood Venous blood specimen / Unknown 01/27/2025 2:07 PM EDT 01/27/2025 6:05 PM EDT us Norman Ordonez MD LAB BLOOD ORDERABLES Final Result Performing Organization Address [facility] de Phone Number [facility] [address] [place] [phone] documented in this encounter Visit Diagnoses Diagnosis Rectal bleed- Primary Hemorrhage of rectum and anus documented in this encounter Additional Health Concerns Assessment Noted Time PHQ-9 Depression Total Score: 8 12/10/19 25 10:14 AM EDT documented as of this encounter Care Teams Capsule Maker Relationship Specialty Start Date End Date Norman Ordonez MD [address] [place] [phone] PCP - General Internal Medicine 03/05/15 documented as of this encounter
--- OUTSIDE RECORDS SUMMARY | 2025-02-25 18:11 | XMS_ITS | Encounter Summary ---
Author Organization [employer] Address [address] [facility] 7 [place] [address] Care Team Providers Care District Or District Office Director Name Role Phone Norman Ordonez MD Primary Care Provider +1 [phone] Reason for Visit * Reason Onset Date Comments Medication Question 03/28/2023 Encounter Details Date Type Department Care Team ([facility] Contact Info) Description 03/28/2023 Telephone [facility] [address] [place] [address] Norman Ordonez MD [address] [place] [address] Medication Question Social History Tobacco Use Types [...] PM EST Updated med list sent to [facility] as requested. * Telephone Encounter - Dulce Maria Earl - 03/28/2023 1:16 PM EST Tc from [facility] with [facility] requesting a call from a nurse in regards to pt medication list not adding up or matching and requesting a new updated copy of pt med list. Please fax over to [phone] Please contact Terry @ [phone] documented in this encounter Plan of Treatment Upcoming Encounters Date Type Department Care Team (Late st Contact Info) Description 03/10/2025 11:30 AM EST Office Visit [facility] [address] [place] [address] Norman Ordonez MD [address] [place] [address] documented as of this encounter Visit Diagnoses Not on filedocumented in this encounter Additional Health Concerns Assessment Noted Time PHQ-9 Depression Total Score: 12 023 10:38 AM EST documented as of this encounter Care Teams District Or District Office Director Relationship Specialty Start Date End Date Norman Ordonez MD [address] [place] [phone] PCP - General Internal Medicine 03/05/15 documented as of this encounter
--- OUTSIDE RECORDS SUMMARY | 2025-02-25 18:11 | XMS_ITS | Encounter Summary ---
Author Organization [employer] Address [address] [facility] [address] [place] [address] Care Team Providers Care Quality Assurance Analyst Name Role Phone Norman Ordonez MD Primary Care Provider [phone] Encounter Details Date Type Department Care Team (Latest Contact Info) Description 11/06/[address] [facility] [address] [place] [address] Norman Ordonez MD [address] [place] [address] Hypercholesterolemia (Primary Dx) Social History Tobacco Use [...] Department Care Team ( Contact Info) Description 03/10/2025 11:30 AM EST Office Visit [facility] [address] [place] [address] Norman Ordonez MD [address] [place] [address] documented as of this encounter Visit Diagnoses Diagnosis Hypercholesterolemia- Primary Pure hypercholesterolemia documented in this encounter Additional Health Concerns Assessment Noted Time PHQ-9 Depression Total Score: 4 05/08/19 23 9:57 AM EST documented as of this encounter Care Teams Quality Assurance Analyst Relationship Specialty Start Date End Date Norman Ordonez MD [address] [place] [address] PCP - General Internal Medicine 03/05/15 documented as of this encounter
== END 2025-02-25 16:27 | disposition home or self-care (01) ==
LOC: HO.HGI 14:42
PROVIDERS: PCP Internal Medicine; Visit Provider Internal Medicine
DX: K62.5 Hemorrhage of anus and rectum (principal); D12.6 Benign neoplasm of colon, unspecified; F17.210 Nicotine dependence, cigarettes, uncomplicated
CPT/HCPCS: 99214

== ENCOUNTER → 2025-02-25 14:41 | Outpatient (BNVA) | payer MEDICAID, SELFPAY | PROVIDERS: PCP Internal Medicine; Visit Provider Internal Medicine | DX: Z01.818 Encounter for other preprocedural examination (principal); K62.5 Hemorrhage of anus and rectum; D12.6 Benign neoplasm of colon, unspecified; F17.210 Nicotine dependence, cigarettes, uncomplicated | CPT/HCPCS: 99212 ==

== ENCOUNTER 2025-04-06 09:35 | Outpatient (REF) | payer MEDICAID, SELFPAY ==
--- OUTSIDE RECORDS SUMMARY | 2025-04-02 09:30 | XMS_ITS | Encounter Summary ---
Author Organization [employer] Address [address] [facility] 7t [place] [address] Care Team Providers Care Accounts Adjustable Clerk Name Role Phone Norman Ordonez MD Primary Care Provider [phone]- [phone] Encounter Details Date Type Department Care Team ([facility] st Contact Info) Description 04/02/2025 9:30 AM EST Office Visit [facility] CHC MED & PEDS [address] [place] [address] Norman Ordonez MD [address] [place] [address] Obesity with body mass index 30 or greater (Primary Dx); Primary hypertension Social History Tobacco [...] Sign Reading Time Taken Comments Blood Pressure 141/83 04/02/2025 9:23 AM EST Pulse 63 04/02/2025 9:23 AM EST Temperature 36.8 C (98.2 F) 04/02/2025 9:23 AM EST Respiratory Rate 20 04/02/2025 9:23 AM EST Oxygen Saturation 97% 04/02/2025 9:23 AM EST Inhaled Oxygen Concentration - - Weight 94.3 kg (208 lb) 04/02/2025 9:23 AM EST Height 162.6 cm (5' 4 ) 04/02/2025 9:23 AM EST Body Mass Index 35.7 04/02/2025 9:23 AM EST documented in this encounter Progress Notes * Norman Ordonez MD - 04/02/2025 9:30 AM EST SUBJECTIVE Efe Garcia is a 60 y.o. male who presents for No chief complaint on file.. Efe Garcia, 60-year-old male - Seen for high blood pressure on March 10, 2025; blood pressure was good at that time - Started phentermine and topiramate for obesity after previous visit - Lost 4 lbs since starting medication - Difficulty sleeping since starting phentermine and topiramate - Concern about possible side effects from medication - Blood pressure increased recently Problem List[1] Allergies[2] Medications Ordered Prior to [...] agitation, confusion and decreased concentration. OBJECTIVE Vitals: 04/02/25 0923 BP: (!) 141/83 BP Location: Left arm Patient Position: Sitting BP Cuff Size: Adult long Pulse: 63 Resp: 20 Temp: 98.2 ??F (36.8 ??C) TempSrc: Oral SpO2: 97% Weight: 208 lb (94.3 kg) Height: 5' 4 (1.626 m) Physical Exam Constitutional: General: He is not in acute distress. Appearance: Normal appearance. He is not ill-appearing, toxic-appearing or diaphoretic. Cardiovascular: Rate and Rhythm: Normal rate. Pulmonary: Effort: Pulmonary effort is normal. Skin: General: Skin is warm. Neurological: General: No focal deficit present. Mental Status: He is alert. Psychiatric: Mood and Affect: Mood normal. Assessment/Plan Assessment/Plan Diagnoses and all orders for this visit: Obesity with body mass index 30 or greater - Tirzepatide-Weight Management (Zepbound) 2.5 MG/0.5ML solution [...] of medullary thyroid cancer or MEN 2. Patient has prior trial of phentermine/Topamax with adverse reaction including insomnia and elevated BP Discussed calorie deficit, recommended reduction of 20-30% of maintenance calories; assembler handbags referral offered. Recommended to decrease soda and sugary beverage consumption. Recommended at least 20 g per meal of protein to assist with satiety. Recommended at least 150 min/week of moderate intensity exercise. Primary hypertension Obesity with body mass index 30 or greater: - Obesity managed with phentermine and topiramate, but experienced insomnia and possible increase in blood pressure as side effects. Plan to discontinue oral medication and initiate injectable therapy for weight loss. - Discontinued phentermine and topiramate due to insomnia and elevated blood pressure. Prescribed injectable weight loss medication. Pharmacy will provide instruction on administration. Follow-up scheduled for next month to monitor weight reduction. Primary hypertension: - Blood pressure previously well controlled, but recent elevation possibly related to phentermine and topiramate. - Monitor blood pressure following discontinuation of phentermine and topiramate. Reassess at next month's follow-up. This note was drafted using Ambient (AI) technology. The patient/patient's guardian has been informed and has consented to the use of this technology: Yes [1] Patient Active Problem List Diagnosis Chronic [...] (Tenormin) 50 MG tablet TAKE ONE TABLET BY MOUTH EVERY DAY 90 tablet 1 atorvastatin (Lipitor) 40 MG tablet TAKE ONE TABLET EVERY MORNING 90 tablet 3 cyanocobalamin (Vitamin B-12) 1000 MCG/ML injection INJECT ONE ML INTRAMUSCULARLY EVERY MONTH 1 mL 11 cyanocobalamin (Vitamin B-12) 1000 MCG/ML injection INJECT ONE ML INTRAMUSCULARLY EVERY MONTH 1 mL 11 fenofibrate micronized (Lofibra) 134 MG capsule TAKE ONE CAPSULE EVERY MORNING WITH BREAKFAST 90 capsule 3 ferrous sulfate (Fe Tabs) 325 (65 Fe) MG EC tablet Do not crush, chew, or split. One tab every other day. 15 tablet 2 hydroCHLOROthiazide (Microzide) 12.5 MG capsule TAKE ONE [...] TIMES DAILY WITH FOOD 15 capsule 2 lidocaine (Lidoderm) 5 % patch Apply 1 patch topically Once per day. Remove & discard patch within 12 hours or as directed by MD. 30 patch 0 nicotine (Nicoderm, Step 3) 7 MG/24HR patch Place 1 patch on the skin. (Patient not taking: Reported on 06/12/2024) omeprazole (PriLOSEC) [address] capsule TAKE ONE CAPSULE BY MOUTH EVERY DAY BEFORE A MEAL 90 capsule1 Omeprazole 20 MG tablet delayed-release Take 20 mg by mouth Once per day. 30 tablet 11 phentermine 15 MG capsule Take 1 capsule (15 mg) by mouth before breakfast. 30 capsule 0 topiramate (Topamax) 25 MG tablet Take 1 tablet (25 mg) by mouth every 12 (twelve) hours. 60 [email or web address] No current facility-administered medications on file prior to visit. documented in this encounter Plan of Treatment Upcoming Encounters Date Type Department Care Team (Late st Contact Info) Description 04/13/2025 11:45 AM EST Clinical Support [facility] MED & PEDS [address] [place] [address] 05/07/2025 11:30 AM EST Office Visit [facility] [address] [place] [address] Norman Ordonez MD [address] [place] [address] documented as of this encounter Visit Diagnoses Diagnosis Obesity with body mass index 30 or greater- Primary Primary hypertension Unspecified essential hypertension documented in this encounter Additional Health Concerns Assessment Noted Time PHQ-9 Depression Total Score: 8 12/10/19 25 10:14 AM EDT documented as of this encounter Care Teams Accounts Adjustable Clerk Relationship Specialty Start Date End Date Norman Ordonez MD [address] [place] [address] PCP - General Internal Medicine 03/05/15 documented as of this encounter
--- NOTE | ~2025-04-06 | CT_ITS ---
EXAMINATION: CT LUNG SCREENING HISTORY: F17.210 - Nicotine dependence, cigarettes, uncomplicated TECHNIQUE: Low dose axial images were obtained from the sternal notch to upper abdomen without IV contrast per standard departmental protocol. Sagittal and coronal reformatted images were also obtained and reviewed. One or more of the following techniques was used for dose reduction: Automated exposure control, adjustment of the mA and/or kV according to patient size, use of iterative reconstruction technique. DLP: 113 mGy-cm COMPARISON: Comparison is made with the prior examination dated 03/04/2024. FINDINGS: Lung nodules: Again seen are scattered nodules measuring up to 3 mm in size in the right upper lobe (series 6, images 50 and 51), in the left upper lobe (series 6, images 30 and 82), and in the left lower lobe (series 6, images 67 and 90). No suspicious pulmonary nodules are identified. Emphysema: mild Coronary Calcification: mild Aortic Arch Calcification: mild Potentially Significant Incidentals : none Additional Chest Findings: There is no pleural or pericardial effusion. No mediastinal or axillary lymphadenopathy is identified. Visualized upper abdomen: The visualized portions of the liver, spleen, and adrenals have an unremarkable unenhanced appearance. CT/CT lung screening IMPRESSION: No suspicious pulmonary nodules are identified. LUNG-RADS ASSESSMENT: Lung-RADS 2: Benign MANAGEMENT: Continue annual screening with LDCT in 12 months Category S: N/A Electronically signed by: Zeke Perkins MD 04/06/2025 10:22 AM [facility]
--- OUTSIDE RECORDS SUMMARY | 2025-04-06 10:58 | XMS_ITS | Encounter Summary ---
Author Organization [employer] Address [address] [facility] 7t [place] [address] Care Team Providers Care Revenue Enforcement Collection Agent Name Role Phone Norman Ordonez MD Primary Care Provider [phone] Reason for Visit * Reason Comments Med Refill Encounter Details Date Type Department Care Team ([facility] st Contact Info) Description 03/05/2024 Refill [facility] CHC ADULT DENTAL [address] [place], [place] [phone] Sterling Kelsey, DMD [address] [place], [place] [phone] History of tooth extraction, unspecified edentulism class [...] Description 04/13/2025 11:45 AM EST Clinical Support [facility] MED & PEDS [address] [place] [address] 05/07/2025 11:30 AM EST Office Visit [facility] MED & PEDS [address] [place] [address] Norman Ordonez MD [address] [place] [address] documented as of this encounter Visit Diagnoses Diagnosis History of tooth extraction, unspecified edentulism class documented in this encounter Additional Health Concerns Assessment Noted Time PHQ-9 Depression Total Score: 12 023 10:38 AM EST documented as of this encounter Care Teams Revenue Enforcement Collection Agent Relationship Specialty Start Date End Date Norman Ordonez MD [address] [place] [address] PCP - General Internal Medicine 03/05/15 documented as of this encounter
--- OUTSIDE RECORDS SUMMARY | 2025-04-06 10:58 | XMS_ITS | Encounter Summary ---
Author Organization [employer] Address [address] [place] [address] Care Team Providers Care Pipe Threading Machine Operator Name Role Phone Norman Ordonez MD Primary Care Provider [phone] Encounter Details Date Type Department Care Team (Late st Contact Info) Description 04/06/2025 Orders Only [facility] External Provider, [facility] Social History Tobacco Use Types Packs/Day Years [...] Description 04/13/2025 11:45 AM EST Clinical Support [facility] MED & PEDS [address] [place] [address] 05/07/2025 11:30 AM EST Office Visit [facility] MED & PEDS [address] [place] [address] Norman Ordonez MD [address] [place] [address] documented as of this encounter Procedures Procedure Name Priority Date/Time Associated Diagnosis Comments LDCT LUNG SCREENING Routine 04/06/2025 9 :42 AM EST documented in this encounter Results * CT Lung Screening Low dose (04/06/2025 9:42 AM EST) Anatomical Region Laterality Modality Lung Computed Tomogra phy 04/06/2025 9:42 AM EST Narrative 04/06/2025 10:25 AM EST [address] [address] [address] Scan Report Signed Patient: Efe Garcia MR#: [id number] : 1965 Acct:[id number] Age/Sex: 60 / M ADM Date: 04/06/25 Loc: HO.CT Attending Dr: Chanda Dawn PA-C Ordering Physician: Chanda Dawn PA-C Date of Service: 04/06/25 Procedure(s): CT lung screening Accession Number(s): [id number] cc: Norman Ordonez MD; Chanda Dawn PA-C Report Number: [id number]: Total DLP = 113.00 mGy-cm Reason for Exam: F17.210 - Nicotine dependence, cigarettes, uncomplicated EXAMINATION: CT LUNG SCREENING HISTORY: F17.210 - Nicotine dependence, cigarettes, uncomplicated TECHNIQUE: Low dose axial images were obtained from the sternal notch to upper abdomen without IV contrast per standard departmental protocol. Sagittal and coronal reformatted images were also obtained and reviewed. One or more of the following techniques was used for dose reduction: Automated exposure control, adjustment of the mA and/or kV according to patient size, use of iterative reconstruction technique. DLP: 113 mGy-cm COMPARISON: Comparison is made with the prior examination dated 03/04/2024. FINDINGS: Lung nodules: Again seen are scattered nodules measuring up to 3 mm in size in the right upper lobe (series 6, images 50 and 51), in the left upper lobe (series 6, images 30 and 82), and in the left lower lobe (series 6, images 67 and 90). No suspicious pulmonary nodules are identified. Emphysema: mild Coronary Calcification: mild Aortic Arch Calcification: mild Potentially Significant Incidentals : none Additional Chest Findings: There is no pleural or pericardial effusion. No mediastinal or axillary lymphadenopathy is identified. Visualized upper abdomen: The visualized portions of the liver, spleen, and adrenals have an unremarkable unenhanced appearance. CT/CT lung screening IMPRESSION: No suspicious pulmonary nodules are identified. LUNG-RADS ASSESSMENT: Lung-RADS 2: Benign MANAGEMENT: Continue annual screening with LDCT in 12 months Category S: N/A Electronically signed by: Zeke Perkins MD 04/06/2025 10:22 AM [facility] Dictated By: Zeke Perkins MD Signed By: <Electronically signed by Zeke Perknis MD in OV> 04/06/25 1022 DD/ 0942 TD/TT: 04/06/25 0947 Management Recruiter: Procedure Note Donotuseinterpreter, Image - 04/06/[address] [address] [address] Scan Report Signed Patient: Morris Garcia#: [id number] : 1965Acct:[id number] Age/Sex: 60 / MADM Date: 04/06/25 Loc: HO.CT Attending Dr: Chanda Dawn PA-C Ordering Physician: Chanda Dawn PA-C Date of Service: 04/06/25 Procedure(s): CT lung screening Accession Number(s): [id number] cc: Norman Ordonez MD; Chanda Dawn PA-C Report Number: [id number]: Total DLP = 113.00 mGy-cm Reason for Exam: F17.210 - Nicotine dependence, cigarettes, uncomplicated EXAMINATION: CT LUNG SCREENING HISTORY: F17.210 - Nicotine dependence, cigarettes, uncomplicated TECHNIQUE: Low dose axial images were obtained from the sternal notch to upper abdomen without IV contrast per standard departmental protocol. Sagittal and coronal reformatted images were also obtained and reviewed. One or more of the following techniques was used for dose reduction: Automated exposure control, adjustment of the mA and/or kV according to patient size, use of iterative reconstruction technique. DLP: 113 mGy-cm COMPARISON: Comparison is made with the prior examination dated 03/04/2024. FINDINGS: Lung nodules: Again seen are scattered nodules measuring up to 3 mm in size in the right upper lobe (series 6, images 50 and 51), in the left upper lobe (series 6, images 30 and 82), and in the left lower lobe (series 6, images 67 and 90). No suspicious pulmonary nodules are identified. Emphysema: mild Coronary Calcification: mild Aortic Arch Calcification: mild Potentially Significant Incidentals : none Additional Chest Findings: There is no pleural or pericardial effusion. No mediastinal or axillary lymphadenopathy is identified. Visualized upper abdomen: The visualized portions of the liver, spleen, and adrenals have an unremarkable unenhanced appearance. CT/CT lung screening IMPRESSION: No suspicious pulmonary nodules are identified. LUNG-RADS ASSESSMENT: Lung-RADS 2: Benign MANAGEMENT: Continue annual screening with LDCT in 12 months Category S: N/A Electronically signed by: Zeke Perkins MD 04/06/2025 10:22 AM [facility] Dictated By: Zeke Perkins MD Signed By: <Electronically signed by Zeke Perkins MD in OV> 04/06/25 1022 DD/ TD/TT: 04/06/2547 Management Recruiter: [facility] External Provider IMG CT PROCEDURES Edited Result - Final documented in this encounter Visit Diagnoses Not on filedocumented in this encounter Additional Health Concerns Assessment Noted Time PHQ-9 Depression Total Score: 8 12/10/19 25 10:14 AM EDT documented as of this encounter Care Teams Pipe Threading Machine Operator Relationship Specialty Start Date End Date Norman Ordonez MD [address] [place] [address] PCP - General Internal Medicine 03/05/15 documented as of this encounter
--- OUTSIDE RECORDS SUMMARY | 2025-04-06 10:58 | XMS_ITS | Encounter Summary ---
Author Organization [employer] Address [address] [facility] 7t [place] [address] Care Team Providers Care Conditioning Machine Operator Name Role Phone Norman Ordonez MD Primary Care Provider [phone]- [phone] Reason for Visit * Reason Comments Med Refill Encounter Details Date Type Department Care Team (Late st Contact Info) Description 08/01/2022 Refill [facility] MED & PEDS [address] [place] [address] Norman Ordonez MD [address] [place] [address] Social History Tobacco Use Types Packs/Day Years [...] Description 04/13/2025 11:45 AM EST Clinical Support [facility]C MED & PEDS [address] [place] [address] 05/07/2025 11:30 AM EST Office Visit [facility] MED & PEDS [address] [place] [address] Norman Ordonez MD [address] [place] [address] documented as of this encounter Visit Diagnoses Not on filedocumented in this encounter Additional Health Concerns Assessment Noted Time PHQ-9 Depression Total Score: 4 05/08/19 23 9:57 AM EST documented as of this encounter Care Teams Conditioning Machine Operator Relationship Specialty Start Date End Date Norman Ordonez MD [address] [place] [address] PCP - General Internal Medicine 03/05/15 documented as of this encounter
--- OUTSIDE RECORDS SUMMARY | 2025-04-06 10:58 | XMS_ITS | Encounter Summary ---
Author Organization [employer] [facility] Address [address] [place] [address] 7[address] [place] [address] Care Team Providers Care Assisted Living Associate Name Role Phone Norman Ordonez MD Primary Care Provider [phone]- [phone] Encounter Details Date Type Department Care Team (Latest Contact Info) Description 11/28/2018 Abstract [facility] CONVERSIONS Dental, Provider, DDS Social [...] Care Team ( st Contact Info) Description 04/13/2025 11:45 AM EST Clinical Support [facility] MED & PEDS [address] [place] [address] 05/07/2025 11:30 AM EST Office Visit [facility] MED & PEDS [address] [place] [address] Norman Ordonez MD [address] [place] [address] documented as of this encounter Visit Diagnoses Not on filedocumented in this encounter Care Teams Assisted Living Associate Relationship Specialty Start Date End Date Norman Ordonez MD [address] [place] [address] PCP - General Internal Medicine 03/05/15 documented as of this encounter
--- OUTSIDE RECORDS SUMMARY | 2025-04-06 10:58 | XMS_ITS | Encounter Summary ---
Author Organization [employer] Address [address] [place] [address] Care Team Providers Care Surveillance Officer Name Role Phone Norman Ordonez MD Primary Care Provider [phone] Encounter Details Date Type Department Care Team (Latest Contact Info) Description 04/02/2025 Travel Social History Tobacco Use Types Packs/Day [...] Description 04/13/2025 11:45 AM EST Clinical Support [facility] MED & PEDS [address] [place] [address] 05/07/2025 11:30 AM EST Office Visit [facility] MED & PEDS [address] [place] [address] Norman Ordonez MD [address] [place] [address] documented as of this encounter Visit Diagnoses Not on filedocumented in this encounter Additional Health Concerns Assessment Noted Time PHQ-9 Depression Total Score: 8 12/10/19 25 10:14 AM EDT documented as of this encounter Care Teams Surveillance Officer Relationship Specialty Start Date End Date Norman Ordonez MD [address] [place] [address] PCP - General Internal Medicine 03/05/15 documented as of this encounter
--- OUTSIDE RECORDS SUMMARY | 2025-04-06 10:58 | XMS_ITS | Encounter Summary ---
Author Organization [employer] [facility] Address [address] [place] [address] 7 [place] [address] Care Team Providers Care Supervisor Carding Name Role Phone Norman Ordonez MD Primary Care Provider [phone]- [phone] Encounter Details Date Type Department Care Team (Late st Contact Info) Description 03/13/2022 Abstract [facility] MEDICINE [address] [place] [address] Provider, MD Bryce Social History Tobacco Use [...] Description 04/13/2025 11:45 AM EST Clinical Support [facility] MED & PEDS [address] [place] [address] 05/07/2025 11:30 AM EST Office Visit [facility] MED & PEDS [address] [place] [address] Norman Ordonez MD [address] [place] [address] documented as of this encounter Visit Diagnoses Not on filedocumented in this encounter Care Teams Supervisor Carding Relationship Specialty Start Date End Date Norman Ordonez MD [address] [place] [address] PCP - General Internal Medicine 03/05/15 documented as of this encounter
--- OUTSIDE RECORDS SUMMARY | 2025-04-06 10:58 | XMS_ITS | Encounter Summary ---
Author Organization [employer] Address [address] [facility] 7t [place] [address] Care Team Providers Care Meat Cutter Apprentice Name Role Phone Norman Ordonez MD Primary Care Provider [phone]- [phone] Encounter Details Date Type Department Care Team ([facility] st Contact Info) Description 01/30/2025 Orders Only [facility] CHC MED & PEDS [address] [place], [place] [phone] Norman Ordonez MD [address] [place] [address] Normocytic anemia (Primary Dx) Social History Tobacco [...] Description 04/13/2025 11:45 AM EST Clinical Support [facility] MED & PEDS [address] [place] [address] 05/07/2025 11:30 AM EST Office Visit [facility] MED & PEDS [address] [place] [address] Norman Ordonez MD [address] [place] [address] documented as of this encounter Visit Diagnoses Diagnosis Normocytic anemia- Primary Unspecified anemia documented in this encounter Additional Health Concerns Assessment Noted Time PHQ-9 Depression Total Score: 8 12/10/19 25 10:14 AM EDT documented as of this encounter Care Teams Meat Cutter Apprentice Relationship Specialty Start Date End Date Norman Ordonez MD [address] [place] [address] PCP - General Internal Medicine 03/05/15 documented as of this encounter
--- OUTSIDE RECORDS SUMMARY | 2025-04-06 10:58 | XMS_ITS | Clinical Summary ---
Author Organization [employer] Address [address] [facility] 7t [place] [address] Care Team Providers Care Game Tester Name Role Phone Norman Ordonez MD Primary Care Provider +1- [phone] Allergies Active Allergy Reactions Criticality Noted Date Comments Lisinopril 05/19/2021 Medications hydrocortisone 2.5 % cream apply by topical route every day to the affected area(s) 015 Active nicotine (Nicoderm, Step 3) 7 MG/24HR patch Place 1 patch on the skin. 022 Active hydroCHLOROthia zide (Microzide) 12.5 MG capsuleIndicati ons:Essential (primary) hypertension TAKE ONE CAPSULE BY MOUTH EVERY DAY 90 capsule 1 024 Active allopurinol (Zyloprim) 300 MG tabletIndicatio ns:Chronic gouty arthritis TAKE ONE TABLET DAILY 90 tablet 3 024 Active Omeprazole 20 MG tablet delayed-release Indications:Gas troesophageal reflux disease without esophagitis Take 20 mg by mouth Once per day. 30 tablet 11 024 Active ibuprofen 600 MG tabletIndicatio ns:History [...] NEEDED FOR PAIN 20 tablet 025 Active Aspirin Adult Low Strength 81 MG EC tabletIndicatio ns:Primary hypertension TAKE ONE TABLET EVERY DAY 90 tablet 3 025 Active ferrous sulfate (Fe Tabs) 325 [...] EVERY DAY 90 tablet 1 025 Active atorvastatin (Lipitor) 40 MG tabletIndicatio ns:Hypercholest erolemia TAKE ONE TABLET EVERY MORNING 90 tablet 3 03/05/20 25 12:48 PM EST 025 Active phentermine 15 MG capsuleIndicati ons:Obesity with body mass index 30 or greater Take 1 capsule (15 mg) by mouth before breakfast. 30 capsule 03/20/20 25 2:39 PM EST 025 2025 Active topiramate (Topamax) 25 MG tabletIndicatio ns:Obesity with body mass index 30 or greater Take 1 tablet (25 mg) by mouth every 12 (twelve) hours. 60 tablet 11 03/20/20 25 2:39 PM EST 025 2025 Active indomethacin (Indocin) 50 MG capsuleIndicati ons:Chronic gouty arthritis,Costo chondritis TAKE ONE CAPSULE THREE TIMES DAILY WITH FOOD 15 capsule 2 03/20/20 25 2:39 PM EST 025 Active lidocaine (Lidoderm) 5 % patchIndication s:Costochondrit is Apply 1 patch topically Once per day. Remove & discard patch within 12 hours or as directed by . 30 patch 03/20/20 2:39 PM EST Active Tirzepatide-Farhan ght Management (Zepbound) 2.5 MG/0.5ML solution auto-injectorIn dications:Obesi ty with body mass index 30 or greater Inject 0.5 mL (2.5 mg) under the skin 1 (one) time per week. 2 mL 1 Active indomethacin (Indocin) 50 MG capsuleIndicati ons:Chronic gouty arthritis TAKE ONE CAPSULE THREE TIMES DAILY WITH FOOD 15 capsule 2 025 2024 Discontinued(R eorder (will not trigger notification to Pharmacy)) Tirzepatide-Farhan ght Management (Zepbound) 2.5 MG/0.5ML solution auto-injectorIn dications:Class 2 severe obesity due to excess calories with serious comorbidity and body mass index (BMI) of 36.0 to 36.9 in adult Inject 0.5 mL (2.5 mg) under the skin 1 (one) time per week. 2 mL 1 025 2024 Discontinued(T herapy completed) Hospital, Clinic, or Other Facility Administered Medication Ordered Dose Route Frequency Start Date End Date Status cyanocobalamin (Vitamin B-12) injection 1,000 mcgIndications:Cobalamin deficiency 1000 mcg IM Once 03/10/2025 03/10/2025 Ended Active Problems Problem Noted Date Diagnosed Date Dental calculus 12/06/2023 Periodontal disease 12/06/2023 Light cigarette smoker (1-9 cigs/day) 01/16/2022 Obesity with body mass index 30 or greater 05/19 Hypertensive disorder 11/21/2018 Steatosis of liver 11/21/2018 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/12/2017 Chronic gouty arthritis 05/18/2015 Cobalamin deficiency 03/23/2015 Encounters Date Type Department Care Team Description 04/06/2025 Orders Only [facility] External Provider, [facility] 04/02/2025 9:30 AM EST Office Visit [facility] [address] [place] [address] Norman Ordonez MD Obesity with body mass index 30 or greater (Primary Dx); Primary hypertension 04/02/2025 Travel 03/10/2025 11:30 AM EST Office Visit [facility] [address] [place] [address] Norman Ordonez MD Primary hypertension (Primary Dx); Obesity with body mass index 30 or greater; Chronic gouty arthritis; Costochondritis; Cobalamin deficiency 03/10/2025 Telephone [facility] [address] [place] [address] Marichuy Vásquez RN Error (VOID this visit) 03/10/2025 Travel 03/09/2025 Telephone [facility] [address] [place] [address] Norman Ordonez MD Chart Prep 03/04/2025 Refill [facility] [address] [place] [address] Norman Ordonez MD Hypercholesterolemia 02/19/2025 Telephone [facility] [address] [place] [address] Norman Ordonez MD Prior Authorization 02/13/2025 Refill [facility] [address] [place] [address] Norman Ordonez MD Gastroesophageal reflux disease without esophagitis; Primary hypertension 02/09/2025 11:00 AM EDT Clinical Support [facility] [address] [place] [address] Cecilia Lopez RN Cobalamin deficiency 02/09/2025 Travel 02/05/2025 Refill [facility] [address] [place] [address] Norman Ordonez MD Hypercholesterolemia 02/02/2025 Results Follow-Up [facility] [address] [place] [address] Norman Ordonez MD Iron And Total Iron Binding Capacity, Ferritin, Reticulocyte Count 01/30/2025 11:00 AM EDT Office Visit [facility] [address] [place] [address] Shante Snowden, OD Myopia of both eyes (Primary Dx) 01/30/2025 Orders Only [facility] [address] [place] [address] Norman Ordonez MD Normocytic anemia (Primary Dx) 01/27/2025 11:30 AM EDT Office Visit [facility] [address] [place] [address] Norman Ordonez MD Primary hypertension (Primary Dx); Encounter for immunization; Class 2 severe obesity due to excess calories with serious comorbidity and body mass index (BMI) of 36.0 to 36.9 in adult; Steatosis of liver; Rectal bleed 01/27/2025 Travel 01/26/2025 Telephone [facility] [address] [place] [address] Norman Ordonez MD Chart Prep 01/12/2025 10:00 AM EDT Clinical Support [facility] [address] [place] [address] Cecilia Lopez, LIYA Cobalamin deficiency 01/12/2025 Travel 01/06/2025 Refill [facility] [address] [place] [address] Norman Ordonez MD Primary hypertension from Last 3 Months Immunizations Immunization Administration [...] Mass Index 35.7 04/02/2025 9:23 AM EST Plan of Treatment Upcoming Encounters Date Type Department Care Team (Late st Contact Info) Description 04/13/2025 11:45 AM EST Clinical Support [facility] [address] [place] [address] 05/07/2025 11:30 AM EST Office Visit [facility] [address] [place] [address] Norman Ordonez MD [address] [place] [address] Health Maintenance Due Date Last Done Comments CT Colonography 1963 FIT DNA/Cologuard 1965 FIT 1965 FOBT 1965 Sigmoidoscopy 1965 Disability Screening 1965 Hepatitis A Vaccines (1 of 2 - Risk 2-dose series) 1982 RSV Patients and Patients Aged 60 years or older (1 - Risk 50-74 years 1-dose series) 2013 Colonoscopy 12/20/2020 12/21/2015 Colorectal Cancer Screening 12/20/2020 Dental X-Ray: Bitewings 12/06/2024 12/06/2023, 11/09 Dental [...] Postponed from 12/15/2024 (Patient Refused) Tobacco Screening 03/10/2026 03/10/2025 Lipid Panel 12/09/2029 12/09/2024, 12/15, 11/06/2022, Additional [...] SCREENING Routine 04/06/2025 9 :42 AM EST RETICULOCYTE COUNT Routine 01/27/2025 2: 07 PM EDT Rectal bleed FERRITIN Routine 01/27/2025 2:07 PM EDT Rectal bleed IRON AND TOTAL IRON BINDING CAPACITY Routine 01/27/2025 2:07 PM EDT Rectal bleed LIPID PANEL, STANDARD Routine 12/09/2024 10:32 AM [...] Recently Relevant to Health Maintenance Results * CT Lung Screening Low dose (04/06/2025 9:42 AM EST) Anatomical Region Laterality Modality Lung Computed Tomogra phy 04/06/2025 9:42 AM EST Narrative 04/06/2025 10:25 AM EST [address] [address] [address] Scan Report Signed Patient: Efe Garcia MR#: [id number] : 1965 Acct:[id number] Age/Sex: 60 / M ADM Date: 04/06/25 Loc: HO.CT Attending Dr: Chanda Dawn PA-C Ordering Physician: Chanda Dawn PA-C Date of Service: 04/06/25 Procedure(s): CT lung screening Accession Number(s): [id number] cc: Norman Ordonez MD; Chanda Dawn PA-C Report Number: [id number]: Total DLP = 113.00 mGy-cm Reason for [...] by: Zeke Perkins MD 04/06/2025 10:[address] [facility] Dictated By: Zeke Perkins MD Signed By: <Electronically signed by Zeke Perkins MD in OV> 04/06/25 1022 DD/ TD/TT: 04/06/2547 Gasoline Truck Operator: Procedure Note Donotuseinterpreter, Image - 04/06/[address] [place] [address] CT Scan Report Signed Patient: Morris Garcia#: [id number] : 1965Acct:[id number] Age/Sex: 60 / MADM Date: 04/06/25 Loc: HO.CT Attending Dr: Chanda Dawn PA-C Ordering Physician: Chanda Dawn PA-C Date of Service: 04/06/25 Procedure(s): CT lung screening Accession Number(s): [id number] cc: Norman Ordonez MD; Chanda Dawn PA-C Report Number: [id number]: Total DLP = 113.00 mGy-cm Reason for [...] by: Zeke Perkins MD 04/06/2025 10:[address] [facility] Dictated By: Zeke Perkins MD Signed By: <Electronically signed by Zeke Perkins MD in OV> 04/06/25 1022 DD/ 0942 TD/TT: 04/06/25 0947 Gasoline Truck Operator: [facility] External Provider IMG CT PROCEDURES Edited Result - Final * Iron And Total Iron Binding Capacity (01/27/2025 2:07 PM EDT) Iron 111 45 - 160 mcg/dL [facility] Total Iron Binding Capacity 358 228 - 428 mcg/dL [facility] Percent Iron Saturation 31 15 - 50 % [facility] Unsaturated Iron Binding 247 ug/dL [facility] Blood Venous blood specimen / Unknown 01/27/2025 2:07 PM EDT 01/27/2025 6:05 PM EDT Norman Ordonez MD LAB BLOOD ORDERABLES Final Result Performing Organization Address City/[facility] Co de Phone Number [facility] [address] [place] [phone] * (ABNORMAL) Reticulocyte Count (01/27/2025 2:07 PM EDT) Reticulocytes Absolute 0.092 0.026 - 0.095 X10*6/uL [facility] Immature Retic Fraction 13.2 2.3 - 13.4 % [facility] Retic HGB Equivalent 34.6 30.0 - 35.0 pg [facility] Reticulocyte Percent 2.1(H) 0.5 - 1.8 % [facility] Blood Venous blood specimen / Unknown 01/27/2025 2:07 PM EDT 01/27/2025 6:05 PM EDT Norman Ordonez MD LAB BLOOD ORDERABLES Final Result [facility] [address] [place] [address] [phone] * Ferritin (01/27/2025 2:07 PM EDT) Ferritin 66 20 - 250 ng/mL [facility] Blood Venous blood specimen / Unknown 01/27/2025 2:07 PM EDT 01/27/2025 6:05 PM EDT us Norman Ordonez MD LAB BLOOD ORDERABLES Final Result Performing Organization Address City/[facility]/ZIP Co de Phone Number [facility] [address] [place] [phone] [phone] * (ABNORMAL) Lipid Panel, Standard (12/09/2024 10:32 AM EDT) Pathologist [facility] Triglycerides 128 <150 mg/dL [facility] Comment:Desirable Triglyceri de: less than 150 mg/dLBorderline High Triglyceride 150-199 mg/dLHigh Triglyceride: 200-499 mg/dLVery High Triglyceride: greater than or equal to 5OO mg/dL Cholesterol 145 <200 mg/dL [facility] Comment:Desirable Cholestero l: less than 200 mg/dLBorderline High Cholesterol: 200-239 mg/dLHigh Cholesterol: greater than 239 mg/dL LDL Cholesterol Calculated 82 <100 mg/dL [facility] Comment:Desirable LDL: less than 100 mg/dLNear Optimal/Above Optimal LDL: 110- 129 mg/dLBorderline High LDL: 130-159 mg/dLHigh LDL: 160-189 mg/dLVery High LDL: greater than or equal to 190 mg/dL HDL Cholesterol 38(L) >40 mg/dL [facility] Comment:Desirable HDL: great er than 40 mg/dL Note: This HDL assay may give artificially low results in patients with liver disease. Blood Venous blood specimen / Unknown 12/09/2024 10:32 AM EDT 12/09/2024 1:58 PM EDT us Norman Ordonez MD LAB BLOOD ORDERABLES Final Result Performing Organization Address [facility]/ZIP Co de Phone Number [facility] [address] [place] [phone] * Hepatitis C Antibody with Reflex to HCV, RNA, Quantitative, Real-Time PCR (12/26/2023 10:43 AM EDT) Hepatitis C Antibody Nonreactive Nonreactive [facility] Comment:Antibodies to HCV no t detected; does not exclude early acuteHCV infection. Blood Venous blood specimen / Unknown 12/26/2023 10:43 AM EDT 12/26/2023 1:46 PM EDT Norman Ordonez MD LAB BLOOD ORDERABLES Final Result Performing Organization Address [facility] Co de Phone Number [facility] [address] [place] [phone] * HIV 1/2 ANTIGEN/ANTIBODY,FOURTH GENERATION W/RFL [...] purpose. For additional information please refer to http://education.Feedo.TouchMail/faq/IDD349 (This link is being provided for informational/ [...] Most Recently Relevant to Health Maintenance Insurance [facility] C3 DENTAL-[facility] MEDICAID STAND ADULT Care Teams Game Tester Relationship Specialty Start Date End Date Norman Ordonez MD [address] [place] [address] [place] [address] PCP - General Internal Medicine 03/05/15
--- OUTSIDE RECORDS SUMMARY | 2025-04-06 10:58 | XMS_ITS | Encounter Summary ---
Author Organization [employer] Address [address] [facility] 7t [place] [address] Care Team Providers Care Director Of Dementia Operations Name Role Phone Norman Ordonez MD Primary Care Provider +1- [phone] Reason for Visit * Reason Comments Med Refill Encounter Details Date Type Department Care Team (Late st Contact Info) Description 05/04/2022 Refill [facility] [address] [place] [address] Norman Ordonez MD [address] 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
--- OUTSIDE RECORDS SUMMARY | 2025-04-06 10:58 | XMS_ITS | Encounter Summary ---
Author Organization [employer] Address [address] [facility] 7t [place] [address] Care Team Providers Care Pile Driver Operator Helper Name Role Phone Norman Ordonez MD Primary Care Provider +1 [phone] Reason for Visit * Reason Comments Med Refill Encounter Details Date Type Department Care Team ([facility] st Contact Info) Description 02/01/2024 Refill [facility] [address] [place], [place] [phone] Sterling Kelsey, DMD [address] [place], [place] [phone] History of tooth extraction, unspecified edentulism class [...] Support [facility] [address] [place] [address] 05/07/2025 11:30 AM EST Office Visit [facility] [address] [place] [address] Norman Ordonez MD [address] [place] [address] documented as of this encounter Visit Diagnoses Diagnosis History of tooth extraction, unspecified edentulism class documented in this encounter Additional Health Concerns Assessment Noted Time PHQ-9 Depression Total Score: 12 023 10:38 AM EST documented as of this encounter Care Teams Pile Driver Operator Helper Relationship Specialty Start Date End Date Norman Ordonez MD [address] [place] [address] PCP - General Internal Medicine 03/05/15 documented as of this encounter
--- OUTSIDE RECORDS SUMMARY | 2025-04-06 10:58 | XMS_ITS | Encounter Summary ---
Author Organization [employer] Address [address] [facility] 7t [place] [address] Care Team Providers Care Battery Hand Name Role Phone Norman Ordonez MD Primary Care Provider +1 [phone] Reason for Visit * Reason Comments Med Refill Encounter Details Date Type Department Care Team ([facility] st Contact Info) Description 04/18/2024 Refill [facility]ULT DENTAL [address] [place], [place] [phone] Sterling Kelsey, DMD [address] [place], [place] [phone] History of tooth extraction, unspecified edentulism class [...] Description 04/13/2025 11:45 AM EST Clinical Support [facility] [address] [place] [address] 05/07/2025 11:30 AM EST Office Visit [facility] [address] [place] [address] Norman Ordonez MD [address] [place] [address] documented as of this encounter Visit Diagnoses Diagnosis History of tooth extraction, unspecified edentulism class documented in this encounter Additional Health Concerns Assessment Noted Time PHQ-9 Depression Total Score: 12 023 10:38 AM EST documented as of this encounter Care Teams Battery Hand Relationship Specialty Start Date End Date Norman Ordonez MD [address] [place] [address] PCP - General Internal Medicine 03/05/15 documented as of this encounter
--- OUTSIDE RECORDS SUMMARY | 2025-04-06 10:58 | XMS_ITS | Encounter Summary ---
Author Organization [employer] [facility] Address [address] [place] [address] 7t [place] [address] Care Team Providers Care Keyboard Teacher Name Role Phone Norman Ordonez MD Primary Care Provider +1- [phone] Encounter Details Date Type Department Care Team (Latest Contact Info) Description 05/30/2018 Abstract [facility] CONVERSIONS Dental, Provider, DDS Social History Tobacco [...] 11:45 AM EST Clinical Support [facility] [address] [place] [address] 05/07/2025 11:30 AM EST Office Visit [facility] [address] [place] [address] Norman Ordonez MD [address] [place] [address] documented as of this encounter Visit Diagnoses Not on filedocumented in this encounter Care Teams Keyboard Teacher Relationship Specialty Start Date End Date Norman Ordonez MD [address] [place] [address] PCP - General Internal Medicine 03/05/15 documented as of this encounter
--- OUTSIDE RECORDS SUMMARY | 2025-04-06 10:58 | XMS_ITS | Encounter Summary ---
Author Organization [employer] [facility] Address [address] [place] [address] 7t [place] [address] Care Team Providers Care Wet Inspector Optical Glass Name Role Phone Norman Ordonez MD Primary Care Provider +1- [phone] Encounter Details Date Type Department Care Team (Latest Contact Info) Description 07/19/2021 Abstract [facility] CONVERSIONS Dental, Provider, DDS Social History [...] Description 04/13/2025 11:45 AM EST Clinical Support [facility] [address] [place] [address] 05/07/2025 11:30 AM EST Office Visit [facility] [address] [place] [address] Norman Ordonez MD [address] [place] [address] documented as of this encounter Visit Diagnoses Not on filedocumented in this encounter Care Teams Wet Inspector Optical Glass Relationship Specialty Start Date End Date Norman Ordonez MD [address] [place] [address] PCP - General Internal Medicine 03/05/15 documented as of this encounter
--- OUTSIDE RECORDS SUMMARY | 2025-04-06 10:58 | XMS_ITS | Encounter Summary ---
Author Organization [employer] Address [address] [place] [address] 7t [place] [address] Care Team Providers Care Director Telehealth Name Role Phone Norman Ordonez MD Primary Care Provider Encounter Details Date Type Department Care Team (Late Contact Info) Description 03/22/2022 Orders Only [facility] MEDICINE [address] [place] [address] Norman Ordonez MD [address] [place], [place] [phone] Vitamin B12 deficiency (Primary Dx); Primary hypertension [...] Description 04/13/2025 11:45 AM EST Clinical Support [facility] PEDS [address] [place] [address] 05/07/2025 11:30 AM EST Office Visit [facility] MED [facility] PEDS [address] [place], [place] [phone] Norman Ordonez MD [address] [place] [address] documented as of this encounter Visit Diagnoses Diagnosis Vitamin B12 deficiency- Primary Other B-complex deficiencies Primary hypertension Unspecified essential hypertension documented in this encounter Care Teams Director Telehealth Relationship Specialty Start Date End Date Norman Ordonez MD [address] [place] [address] [place] [address] PCP - General Internal Medicine 03/05/15 documented as of this encounter
--- OUTSIDE RECORDS SUMMARY | 2025-04-06 10:58 | XMS_ITS | Encounter Summary ---
Author Organization [employer] Address [address] [facility] 7t [place] [address] Care Team Providers Care Cad Technician Name Role Phone Norman Ordonez MD Primary Care Provider +1 [phone] Encounter Details Date Type Department Care Team (Latest Contact Info) Description 02/02/2025 Results Follow-Up [facility] MED & PEDS [address] [place], [place] [phone] Norman Ordonez MD [address] [place] [address] Iron And Total Iron Binding Capacity, Ferritin, [...] Description 04/13/2025 11:45 AM EST Clinical Support [facility] [address] [place] [address] 05/07/2025 11:30 AM EST Office Visit [facility] [address] [place] [address] Norman Ordonez MD [address] [place] [address] documented as of this encounter Visit Diagnoses Not on filedocumented in this encounter Additional Health Concerns Assessment Noted Time PHQ-9 Depression Total Score: 8 12/10/19 25 10:14 AM EDT documented as of this encounter Care Teams Cad Technician Relationship Specialty Start Date End Date Norman Ordonez MD [address] [place] [address] PCP - General Internal Medicine 03/05/15 documented as of this encounter
--- OUTSIDE RECORDS SUMMARY | 2025-04-06 10:59 | XMS_ITS | Encounter Summary ---
Author Organization [employer] Address [address] [facility] 7t [place] [address] Care Team Providers Care Skein Drier Name Role Phone Norman Ordonez MD Primary Care Provider +1- [phone] Encounter Details Date Type Department Care Team (Latest Contact Info) Description 11/06/2022 Orders Only [facility] MED [facility] PEDS [address] [place], [place] [phone] Norman Ordonez MD [address] [place] [address] Hypercholesterolemia (Primary Dx) Social History Tobacco Use [...] Department Care Team ( Contact Info) Description 04/13/2025 11:45 AM EST Clinical Support [facility] [address] [place] [address] 05/07/2025 11:30 AM EST Office Visit [facility] MED & PEDS [address] [place] [address] Norman Ordonez MD [address] [place] [address] documented as of this encounter Visit Diagnoses Diagnosis Hypercholesterolemia- Primary Pure hypercholesterolemia documented in this encounter Additional Health Concerns Assessment Noted Time PHQ-9 Depression Total Score: 4 05/08/19 9:57 AM EST documented as of this encounter Care Teams Skein Drier Relationship Specialty Start Date End Date Norman Ordonez MD [address] [place] [address] PCP - General Internal Medicine 03/05/15 documented as of this encounter
--- OUTSIDE RECORDS SUMMARY | 2025-04-06 10:59 | XMS_ITS | Encounter Summary ---
Author Organization [employer] Address [address] [place] [address] 7 [place] [address] Care Team Providers Care Child Welfare Social Worker Name Role Phone Norman Ordonez MD Primary Care Provider [phone]- [phone] Reason for Referral * Consultation (Urgent) - Authorized Specialty Diagnoses / Procedures Referred By Yajaira tovar Referred To Contact Gastroenterology Diagnoses Rectal bleed Norman Ordonez MD [address] [place] [address] Phone: tel: fax: Saige Pillai MD [address] [place] [phone] Phone: tel: fax: Referral ID Status Reason Start Date Expiration Date Visits Requested Visits Authorized [id number] Authorized Specialty Services Required 12/12/2024 12/12/2025 1 1 Encounter Details Date Type Department Care Team ([facility] st Contact Info) Description 12/12/2024 Orders Only [facility] MED & PEDS [address] [place], [place] [phone] Norman Ordonez MD [address] [place], [place] [phone] Rectal bleed (Primary Dx) Social History Tobacco [...] Upcoming Encounters Date Type Department Care Team ([facility] st Contact Info) Description 04/13/2025 11:45 AM EST Clinical Support [facility]EDS [address] [place] [phone] 05/07/2025 11:30 AM EST Office Visit [facility] [address] [place] [address] Norman Ordonez MD [address] [place] [address] Scheduled Referrals Name Type Priority Associated Diagnoses [...] Reticulocytes Absolute 0.092 0.026 - 0.095 X10*6/uL [facility] Immature Retic Fraction 13.2 2.3 - 13.4 % [facility] Retic HGB Equivalent 34.6 30.0 - 35.0 pg [facility] Reticulocyte Percent 2.1(H) 0.5 - 1.8 % [facility] Blood Venous blood specimen / Unknown 01/27/2025 2:07 PM EDT 01/27/2025 6:05 PM EDT us Norman Ordonez MD LAB BLOOD ORDERABLES Final Result [facility] [address] [place] [address] [phone] * Ferritin (01/27/2025 2:07 PM EDT) Ferritin 66 20 - 250 ng/mL [facility] Blood Venous blood specimen / Unknown 01/27/2025 2:07 PM EDT 01/27/2025 6:05 PM EDT us Norman Ordonez MD LAB BLOOD ORDERABLES Final Result Performing Organization Address [facility] Co de Phone Number [facility] [address] [place] [address] [phone] * Iron And Total Iron Binding Capacity (01/27/2025 2:07 PM EDT) Iron 111 45 - 160 mcg/dL [facility] Total Iron Binding Capacity 358 228 - 428 mcg/dL [facility] Percent Iron Saturation 31 15 - 50 % [facility] Unsaturated Iron Binding 247 ug/dL [facility] Blood Venous blood specimen / Unknown 01/27/2025 2:07 PM EDT 01/27/2025 6:05 PM EDT us Norman Ordonez MD LAB BLOOD ORDERABLES Final Result Performing Organization Address [facility] de Phone Number [facility] [address] [place] [address] [phone] documented in this encounter Visit Diagnoses Diagnosis Rectal bleed- Primary Hemorrhage of rectum and anus documented in this encounter Additional Health Concerns Assessment Noted Time PHQ-9 Depression Total Score: 8 12/10/19 25 10:14 AM EDT documented as of this encounter Care Teams Child Welfare Social Worker Relationship Specialty Start Date End Date Norman Ordonez MD [address] [place] [phone] PCP - General Internal Medicine 03/05/15 documented as of this encounter
--- OUTSIDE RECORDS SUMMARY | 2025-04-06 10:59 | XMS_ITS | Encounter Summary ---
Author Organization [employer] Address [address] [place] [address] Care Team Providers Care Community Case Manager Name Role Phone Norman Ordonez MD Primary Care Provider [phone]- [phone] Reason for Visit * Reason Onset Date Comments Medication Question 03/28/2023 Encounter Details Date Type Department Care Team ([facility] st Contact Info) Description 03/28/2023 Telephone [facility] MED & PEDS [address] [place] [address] Norman Ordonez MD [address] [place] [address] Medication Question Social History Tobacco Use Types [...] PM EST Updated med list sent to [facility] as requested. * Telephone Encounter - Dulce Maria Earl - 03/28/2023 1:16 PM EST Tc from Terry with [facility] requesting a call from a nurse in regards to pt medication list not adding up or matching and requesting a new updated copy of pt med list. Please fax over to [phone] Please contact Terry @ [phone] documented in this encounter Plan of Treatment Upcoming Encounters Date Type Department Care Team ([facility] st Contact Info) Description 04/13/2025 11:45 AM EST Clinical Support [facility] PED[facility] [address] [place] [address] 05/07/2025 11:30 AM EST Office Visit [facility] [address] [place] [address] Norman Ordonez MD [address] [place] [address] documented as of this encounter Visit Diagnoses Not on filedocumented in this encounter Additional Health Concerns Assessment Noted Time PHQ-9 Depression Total Score: 12 023 10:38 AM EST documented as of this encounter Care Teams Community Case Manager Relationship Specialty Start Date End Date Norman Ordonez MD [address] [place] [address] PCP - General Internal Medicine 03/05/15 documented as of this encounter
--- OUTSIDE RECORDS SUMMARY | 2025-04-06 10:59 | XMS_ITS | Encounter Summary ---
Author Organization [employer] Address [address] [place] [address] Care Team Providers Care Slot Floor Person Name Role Phone Norman Ordonez MD Primary Care Provider [phone]- [phone] Encounter Details Date Type Department Care Team (Late st Contact Info) Description 02/08/2023 Abstract [facility] [address] [place] [address] Norman Ordonez MD [address] [place], [place] [phone] Social History Tobacco Use Types Packs/Day Years [...] Description 04/13/2025 11:45 AM EST Clinical Support [facility] MED & PEDS [address] [place] [address] 05/07/2025 11:30 AM EST Office Visit [facility] MED [facility] PED[facility] [address] [place] [address] Norman Ordonez MD [address] [place] [address] documented as of this encounter Procedures Procedure [...] documented as of this encounter Care Teams Slot Floor Person Relationship Specialty Start Date End Date Norman Ordonez MD [address] [place] [address] PCP - General Internal Medicine 03/05/15 documented as of this encounter
== END 2025-04-06 09:36 | disposition home or self-care (01) ==
LOC: HO.CT 09:35
PROVIDERS: PCP Internal Medicine; Visit Provider Physician Assistant Medical
DX: F17.210 Nicotine dependence, cigarettes, uncomplicated (principal)
CPT/HCPCS: 71271

== ENCOUNTER → 2025-04-06 09:37 | Outpatient (BNV) | payer MEDICAID, SELFPAY | PROVIDERS: PCP Internal Medicine; Visit Provider Radiology Diagnostic Radiology | DX: Z12.2 Encounter for screening for malignant neoplasm of respiratory organs (principal); Z87.891 Personal history of nicotine dependence | CPT/HCPCS: 71271 ==